=== PATIENT | female | born 1935 | race Caucasian/White ===

== ENCOUNTER 2021-11-21 16:50 | Inpatient (IN) ==
--- NOTE | 2021-11-21 17:19 | Emergency Department Note ---
History of Present Illness General Chief complaint: Syncope Stated complaint: SYNCOPE Time Seen by Provider: 11/21/21 17:03 Source: patient and family (Daughter) Mode of arrival: EMS History of Present Illness Provider complaint: Syncope with left-sided back pain Onset (ago): hour(s) Location: head, back and left Radiation: non-radiation Pain Consistency: + constant Maximum Pain Intensity: 6 Quality: + aching Exacerbated By: + other (Palpation) Associated symptoms: + syncope and + weakness; no chest pain, no cough, no fever/chills, no headaches, no nausea/vomiting or no shortness of breath This is an 85-year-old female who presents with back pain after 2 syncopal episodes today. The patient states that she was on the bathroom defecating and urinating at 7 AM. She then woke up on the ground in the bathroom. She did not have any significant symptoms at this time and went about her day. Prior to arrival the patient passed out again. Her daughter states that she had to go to bathroom so she assisted her to the bathroom and she passed out for about 20 seconds. She did not hit the ground. The patient does not remember passing out. There is no seizure activity. This was witnessed by the daughter. The patient had no symptoms prior to passing out. She does complain of pain to her left upper back where she believes she hit her back this morning. She describes it as a dull ache. It is worse when you press on it. No associated shortness of breath. She denies any palpitations or feelings of tachycardia. She has had no recent fever or illness, cough or cold symptoms, chest discomfort or pain, abdominal pain, vomiting, diarrhea, headache, black or bloody stools or urinary symptoms. She is not on any blood thinners. Home Medications Medication Instructions Recorded Confirmed Type alendronate 70 mg tablet 70 mg PO WK 11/21/21 11/21/21 History allopurinol 100 mg tablet 100 mg PO QAM 11/21/21 11/21/21 History calcium carbonate 600 mg-vitamin 1 tab PO QAM 11/21/21 11/21/21 History D3 10 mcg (400 unit) tablet (Calcium 600 + D(3)) gabapentin 100 mg capsule 100 mg PO TIDM 11/21/21 11/21/21 History hydrochlorothiazide 25 mg tablet 25 mg PO QAM 11/21/21 11/21/21 History lisinopril 30 mg tablet 30 mg PO DAILY 11/21/21 11/21/21 History metoprolol succinate 50 mg 50 mg PO QAM 11/21/21 11/21/21 History tablet,extended release 24 hr Allergies Allergy/AdvReac Type Severity Reaction Status Date / Time No Known Allergies Allergy Verified 11/21/21 18:48 Past Med/Surg History Medical History Hypertension Tremor Social History Smoking Status: Never smoker Feels Safe at Home: Yes Review of Systems See HPI for pertinent positives & negatives. and A total of 10 systems reviewed and were otherwise negative Physical Exam Vital Signs Vital Signs - 24 hr 11/21/21 17:00 11/21/21 17:10 11/21/21 17:30 Temperature 36.9 C Temperature Source Oral Pulse Rate 111 H 109 H Respiratory Rate 20 20 Respiratory Effort / Characteristics Non-Labored Spontaneous Respiratory Depth Normal Blood Pressure 134/67 105/76 Blood Pressure Mean 89 85 Pulse Oximetry 92 90 92 Oxygen Delivery Method Room Air Oxygen Flow Rate Sepsis Recent Fever Within 48 Hours No Sepsis New/Unexplained Change in Mental Status N/A Sepsis Action Taken by Nursing No Action Required 11/21/21 18:30 11/21/21 18:51 11/21/21 19:00 Temperature Temperature Source Pulse Rate 105 H 99 H Respiratory Rate 23 26 H Respiratory Effort / Characteristics Respiratory Depth Blood Pressure 153/76 H 133/71 Blood Pressure Mean 101 91 Pulse Oximetry 94 96 Oxygen Delivery Method Nasal Cannula Oxygen Flow Rate 3 Sepsis Recent Fever Within 48 Hours Sepsis New/Unexplained Change in Mental Status Sepsis Action Taken by Nursing 11/21/21 19:30 Temperature Temperature Source Pulse Rate 96 H Respiratory Rate 27 H Respiratory Effort / Characteristics Respiratory Depth Blood Pressure 126/62 Blood Pressure Mean 83 Pulse Oximetry 96 Oxygen Delivery Method Oxygen Flow Rate Sepsis Recent Fever Within 48 Hours Sepsis New/Unexplained Change in Mental Status Sepsis Action Taken by Nursing Constitutional: Vital signs reviewed. Eyes: Pupils are equal round reactive to light. Conjunctiva are noninjected. ENT: Pharynx is clear without erythema or exudate. Mucous membranes are moist. No midline tenderness to the cervical spine. Respiratory: Clear to auscultation bilaterally. Breath sounds are equal bilaterally. Cardiovascular: Tachycardic. Regular rhythm. GI: Soft, nondistended and nontender. Bowel sounds are present. Musculoskeletal: No peripheral edema. No lower extremity tenderness. No midline tenderness to the thoracic or lumbar spine. There is some mild tenderness to the left mid ribs posteriorly without crepitus or flail segment. Integumentary: No cyanosis. or jaundice. Neurologic: The patient is awake and alert. Cranial nerves II-XII are intact. Motor is 5 out of 5 all extremities. Sensation is intact to light touch all extremities. Normal speech. No pronator drift. Psychiatric: Normal affect. Not anxious appearing. Course Administered Medications Heparin Sodium/Dextrose (Heparin Sodium/Dextrose) 25,000 units in 500 mls @ 0.02 mls/hr IV .Q24H [facility]; Protocol Stop: 12/21/21 18:59 Last Admin: 11/21/21 19:08 Dose: 1,100 units/hr, 22 mls/hr Documented by: [id number] Cosigned by: [id number] Discontinued Medications Heparin Sodium (Porcine) (Heparin Sod (Porcine) 1000 Unit/Ml) 1 units IV NOW ONE Stop: 11/21/21 18:47 Last Admin: 11/21/21 19:08 Dose: 5,000 units Documented by: [id number] Cosigned by: [id number] Ioversol (Optiray 320 125ml) 120 ml IV ONCE ONE Stop: 11/21/21 18:24 Last Admin: 11/21/21 18:24 Dose: 120 ml Documented by: [id number] Critical Care Time Critical Care Time: Yes Total Critical Care Time: 45 I have personally spent approximately 45 minutes of critical care time in the direct management of this patient. This includes bedside care, interpretation of diagnostic studies, and testing, discussion with consultants, patient, and family members, and other required patient management activities. These minutes are in excess of all separately billable procedures. Medical Decision Making Differential Diagnosis Syncope, dysrhythmia, pulmonary embolism, metabolic derangement, intracranial hemorrhage, thoracic vertebral fracture, orthostatic hypotension Medical Records Attestation: I reviewed the patient's medical records. I did perform a limited focused review of portions of the patient's old chart on the electronic medical record. The patient has had no recent pertinent visits to this hospital. Home Medications Current Medication List: was personally reviewed by [email or web address] Laboratory Data Attestation: I reviewed the patient's lab results. Result diagrams: 11/21/21 15:01 11/21/21 15:01 Lab Results 11/21/21 11/21/21 11/21/21 Range/Units 15:00 15:01 15:01 WBC 20.08 H (4.8-10.8) K/uL RBC 4.65 (4.2-5.4) M/uL Hgb 15.0 (12.0-16.0) g/dL POC Hgb (12.0-16.0) g/dl Hct 43.6 (37-47) % POC Hct (37-47) % MCV 93.8 (80-100) fL MCH 32.3 (25-34) pg MCHC 34.4 (32-36) g/dL RDW Std Deviation 47.7 H (36.4-46.3) fL RDW Coeff of Jesus 14.1 (11.5-14.5) % Plt Count 103 L (130-400) K/uL MPV 11.0 H (7.4-10.4) fL Immature Gran % (Auto) 0.5 % Neut % (Auto) 85.0 % Lymph % (Auto) 7.9 % [place] % (Auto) 6.2 % Eos % (Auto) 0.3 % Baso % (Auto) 0.1 % Neut # (Auto) 17.07 H (1.4-6.5) K/uL Lymph # (Auto) 1.58 (1.2-3.4) K/uL [place] # (Auto) 1.25 H (0.11-0.59) K/uL Eos # (Auto) 0.06 (0-0.5) K/uL Baso # (Auto) 0.02 (0-0.2) K/uL Immature Gran # (Auto) 0.10 H (0.00-0.02) K/uL APTT 25.5 (21.0-31.0) Seconds PTT Ratio 0.9 POC Sodium (135-144) mmol/L Sodium 137 (136-145) mmol/L POC Potassium (3.3-5.0) mmol/L Potassium 4.6 (3.5-5.1) mmol/L POC Chloride (101-112) mmol/L Chloride 104 (98-107) mmol/L Carbon Dioxide 23 (21-32) mmol/L POC Total CO2 (24-31) mmol/L Anion Gap 10 (3-11) POC Anion Gap (16-25) mmol/L POC BUN (7-18) mg/dl BUN 22 (6-23) mg/dl Creatinine 1.01 (0.6-1.2) mg/dl POC Creatinine (0.6-1.3) mg/dl Est Cr Clr Drug Dosing 39.7 ml/min Est GFR ( Amer) 59.2 ml/min Est GFR (Non-Af Amer) 51.1 ml/min BUN/Creatinine Ratio 21.8 H (10-20) Glucose 117 H (70-99(Fasting)) mg/dl POC Glucose (other) (70-99) mg/dl Lactate (0.4-2.0) mmol/L Calcium 8.7 (8.5-10.1) mg/dl POC Ioniz Calcium Al (1.12-1.32) mmol/l Magnesium 2.0 (1.7-2.4) mg/dl Total Bilirubin 1.6 H (0.2-1.0) mg/dl AST 36 (13-39) U/L ALT 14 (7-52) U/L Alkaline Phosphatase 53 (34-104) U/L Troponin I High Sens 4272.4 H* (0-14) pg/ml Total Protein 5.7 L (6.0-8.3) gm/dl Albumin 3.5 (3.4-5.0) gm/dl Globulin 2.2 L (2.5-4.0) gm/dl Albumin/Globulin Ratio 1.6 (0.9-2) TSH (0.300-4.500) uIu/ml SARS-CoV-2, RNA, NAAT (NEGATIVE) 11/21/21 11/21/21 11/21/21 Range/Units 15:01 17:20 18:50 WBC (4.8-10.8) K/uL RBC (4.2-5.4) M/uL Hgb (12.0-16.0) g/dL POC Hgb 13.3 (12.0-16.0) g/dl Hct (37-47) % POC Hct 39 (37-47) % MCV (80-100) fL MCH (25-34) pg MCHC (32-36) g/dL RDW Std Deviation (36.4-46.3) fL RDW Coeff of Jesus (11.5-14.5) % Plt Count (130-400) K/uL MPV (7.4-10.4) fL Immature Gran % (Auto) % Neut % (Auto) % Lymph % (Auto) % [place] % (Auto) % Eos % (Auto) % Baso % (Auto) % Neut # (Auto) (1.4-6.5) K/uL Lymph # (Auto) (1.2-3.4) K/uL [place] # (Auto) (0.11-0.59) K/uL Eos # (Auto) (0-0.5) K/uL Baso # (Auto) (0-0.2) K/uL Immature Gran # (Auto) (0.00-0.02) K/uL APTT (21.0-31.0) Seconds PTT Ratio POC Sodium 138 (135-144) mmol/L Sodium (136-145) mmol/L POC Potassium 4.0 (3.3-5.0) mmol/L Potassium (3.5-5.1) mmol/L POC Chloride 103 (101-112) mmol/L Chloride (98-107) mmol/L Carbon Dioxide (21-32) mmol/L POC Total CO2 24 (24-31) mmol/L Anion Gap (3-11) POC Anion Gap 16.0 (16-25) mmol/L POC BUN 25 H (7-18) mg/dl BUN (6-23) mg/dl Creatinine (0.6-1.2) mg/dl POC Creatinine 0.9 (0.6-1.3) mg/dl Est Cr Clr Drug Dosing ml/min Est GFR ( Amer) ml/min Est GFR (Non-Af Amer) ml/min BUN/Creatinine Ratio (10-20) Glucose (70-99(Fasting)) mg/dl POC Glucose (other) 119 H (70-99) mg/dl Lactate (0.4-2.0) mmol/L Calcium (8.5-10.1) mg/dl POC Ioniz Calcium Al 1.13 (1.12-1.32) mmol/l Magnesium (1.7-2.4) mg/dl Total Bilirubin (0.2-1.0) mg/dl AST (13-39) U/L ALT (7-52) U/L Alkaline Phosphatase (34-104) U/L Troponin I High Sens (0-14) pg/ml Total Protein (6.0-8.3) gm/dl Albumin (3.4-5.0) gm/dl Globulin (2.5-4.0) gm/dl Albumin/Globulin Ratio (0.9-2) TSH 2.513 (0.300-4.500) uIu/ml SARS-CoV-2, RNA, NAAT NEGATIVE (NEGATIVE) 11/21/21 Range/Units 18:52 WBC (4.8-10.8) K/uL RBC (4.2-5.4) M/uL Hgb (12.0-16.0) g/dL POC Hgb (12.0-16.0) g/dl Hct (37-47) % POC Hct (37-47) % MCV (80-100) fL MCH (25-34) pg MCHC (32-36) g/dL RDW Std Deviation (36.4-46.3) fL RDW Coeff of Jesus (11.5-14.5) % Plt Count (130-400) K/uL MPV (7.4-10.4) fL Immature Gran % (Auto) % Neut % (Auto) % Lymph % (Auto) % [place] % (Auto) % Eos % (Auto) % Baso % (Auto) % Neut # (Auto) (1.4-6.5) K/uL Lymph # (Auto) (1.2-3.4) K/uL [place] # (Auto) (0.11-0.59) K/uL Eos # (Auto) (0-0.5) K/uL Baso # (Auto) (0-0.2) K/uL Immature Gran # (Auto) (0.00-0.02) K/uL APTT (21.0-31.0) Seconds PTT Ratio POC Sodium (135-144) mmol/L Sodium (136-145) mmol/L POC Potassium (3.3-5.0) mmol/L Potassium (3.5-5.1) mmol/L POC Chloride (101-112) mmol/L Chloride (98-107) mmol/L Carbon Dioxide (21-32) mmol/L POC Total CO2 (24-31) mmol/L Anion Gap (3-11) POC Anion Gap (16-25) mmol/L POC BUN (7-18) mg/dl BUN (6-23) mg/dl Creatinine (0.6-1.2) mg/dl POC Creatinine (0.6-1.3) mg/dl Est Cr Clr Drug Dosing ml/min Est GFR ( Amer) ml/min Est GFR (Non-Af Amer) ml/min BUN/Creatinine Ratio (10-20) Glucose (70-99(Fasting)) mg/dl POC Glucose (other) (70-99) mg/dl Lactate 1.4 (0.4-2.0) mmol/L Calcium (8.5-10.1) mg/dl POC Ioniz Calcium Al (1.12-1.32) mmol/l Magnesium (1.7-2.4) mg/dl Total Bilirubin (0.2-1.0) mg/dl AST (13-39) U/L ALT (7-52) U/L Alkaline Phosphatase (34-104) U/L Troponin I High Sens (0-14) pg/ml Total Protein (6.0-8.3) gm/dl Albumin (3.4-5.0) gm/dl Globulin (2.5-4.0) gm/dl Albumin/Globulin Ratio (0.9-2) TSH (0.300-4.500) uIu/ml SARS-CoV-2, RNA, NAAT (NEGATIVE) Imaging Data Radiologist's Impression: Cervical Spine CT 11/21/21 17:10 CT SCAN OF THE CERVICAL SPINE CLINICAL HISTORY: Fall. COMPARISON STUDY: No priors. TECHNIQUE: CT scan of the cervical spine is performed from the skull base to the upper thoracic spine. Images are reviewed in the axial, sagittal, and coronal planes. IV contrast was not administered for this examination. A dose lowering technique was utilized adhering to the principles of ALARA. FINDINGS: Skeletal structures: The skeletal structures are osteopenic. There is no evidence of fracture or subluxation involving the cervical spine. Vertebral body height and alignment are maintained. Small anterior osteophytes are seen thr oughout. The odontoid process and lateral masses are intact. The atlantoaxial articulation is preserved noting productive degenerative change. The spinous processes appear intact. There is mild to moderate multilevel cervical spondylosis. Uncovertebral and facet arthropathy contribute to neural foraminal narrowing at several levels. Intervertebral discs: The disc spaces are well maintained. Central canal: Grossly patent. Soft tissues: The prevertebral and paraspinous soft tissues are within normal limits. Calvarium: The visualized calvarium at the skull base appears intact. Brain parenchyma: Partially visualized brain parenchyma at the skull base is within normal limits. Sinuses and mastoids: Mucosal thickening is noted in the ethmoid sinuses. The mastoid air cells are well pneumatized. Lung apices: Clear as visualized. IMPRESSION: 1. There is no evidence of fracture or subluxation involving the cervical spine. 2. Osteopenia and spondylotic change as above. ACT 112: Negative or not required by law. Electronically signed by: Al Hurtado M.D. 11/21/2021 6:25 PM Chest CTA 11/21/21 17:10 CT ANGIOGRAM OF THE CHEST; CT SCAN OF THE THORACIC SPINE WITHOUT IV CONTRAST CLINICAL HISTORY: Syncope. Tachycardia. Thoracic back pain. COMPARISON STUDY: No priors. TECHNIQUE: Unenhanced CT scan of the thoracic spine is performed from the cervical spine to the upper lumbar spine. Subsequently, following The IV administration of 120 cc of [address] angiogram of the chest was performed from the upper abdomen to the thoracic inlet utilizing the pulmonary embolus p rotocol. Images for both examinations are reviewed in the axial, sagittal, and coronal planes. 3-D MIPS images are created and assessed. IV contrast was administered without complication. A dose lowering technique was utilized adhering to the principles of ALARA. These examinations are compromised by motion artifact, as well as by streak artifact from the arms which could not be elevated above the chest. CT DOSE: 2350.91 mGy.cm FINDINGS: Thyroid: Imaged portions of the thyroid gland are normal in size and attenuatio n. Thoracic aorta: The thoracic aorta is normal in caliber and demonstrates standard 3-vessel arch anatomy. No dissection is seen. Pulmonary vasculature: The pulmonary trunk is normal in caliber. There is extensive bilateral pulmonary embolus. Thrombus is seen within the distal right main pulmonary artery. This extends into the right upper and lower lobe pulmonary arteries into segmental and subsegmental branches. There is thrombus within the distal left main pulmonary artery. This extends into the left upper and lower lobe branches as well as a lingular branch into segmental and subsegmental vessels. Heart: The heart is mildly enlarged and without pericardial effusion. Lungs and pleural spaces: Evaluation of the lung parenchyma is compromised by motion artifact. The trachea and central airways appear clear. There is subpleural consolidation throughout the right lower lobe. Scarring/atelectasis is seen at the left lung base. No pleural effusion is identified. Mediastinum: There is no mediastinal lymphadenopathy. Mayda: Clear. Axillae: There is no axillary lymphadenopathy. Upper abdomen: There is a small hiatal hernia. Excreted IV contrast is seen within the renal collecting systems. Partially visualized upper abdominal viscera is otherwise grossly unremarkable. Skeletal structures: The skeletal structures are osteopenic. See below for dedicated discussion of the thoracic spine. The bony thorax appears intact. No lytic or blastic bony lesions are seen. THORACIC SPINE: Vertebral body height and alignment are maintained throughout the thoracic spine. There is no evidence of acute fracture or malalignment. The transverse and spinous processes are intact. Anterior osteophytes are seen throughout and there is evidence of DISH. There is mild multilevel degenerative disc space narrowing. There is no evidence of large disc herniation or high- grade central canal stenosis by CT. The paraspinous soft tissues are normal in appearance. IMPRESSION: 1. Streak and motion compromised examinations. 2. Extensive bilateral pulmonary emboli as above. 3. Foci of subpleural airspace consolidation in the right lower lobe likely represent pulmonary infarcts. Correlate clinically for evidence of a superimposed infectious/inflammatory enteritis. 4. There is no evidence of fracture or malalignment involving the thoracic spine. 5. Mild cardiomegaly. 6. Additional findings as above. ACT 112: Negative or not required by law. Electronically signed by: Al Hurtado M.D. 11/21/2021 6:[address] 11/21/21 17:10 CT SCAN OF THE BRAIN WITHOUT IV CONTRAST CLINICAL HISTORY: Syncope. COMPARISON STUDY: No priors. TECHNIQUE: Unenhanced axial CT scan of the brain is performed from the vertex to the skull base. A dose lowering technique was utilized adhering to the princi ples of RYAN. FINDINGS: Brain parenchyma: There is age-related involutional change noting mild subcortical and periventricular microangiopathic disease. There is no hemorrhage, mass effect, or evidence of acute territorial ischemia by CT criteria. Catherine-white matter differentiation is preserved. No extra-axial fluid collection is seen. Ventricles, sulci, cisterns: Prominent secondary to involutional change. Intracranial vasculature: There is atherosclerotic calcification of the cavernous carotid arteries. Calvarium: The skeletal structures are osteopenic. No depressed calvarial fracture is identified. Soft tissues: There is a small left frontal scalp contusion. Sinuses and mastoids: Mild mucosal thickening is noted in the ethmoid sinuses. The remaining visualized paranasal sinuses are clear. The mastoid air cells are well pneumatized. Orbits: The bony orbits are grossly intact. IMPRESSION: There is no hemorrhage, mass effect, or evidence of acute territorial ischemia by CT criteria. ACT 112: Negative or not required by law. Electronically signed by: Al Hurtado M.D. 11/21/2021 6:[address] 11/21/21 17:10 CT ANGIOGRAM OF THE CHEST; CT SCAN OF THE THORACIC SPINE WITHOUT IV CONTRAST CLINICAL HISTORY: Syncope. Tachycardia. Thoracic back pain. COMPARISON STUDY: No priors. TECHNIQUE: Unenhanced CT scan of the thoracic spine is performed from the cervical spine to the upper lumbar spine. Subsequently, following The IV administration of 120 cc of [address] angiogram of the chest was performed from the upper abdomen to the thoracic inlet utilizing the pulmonary embolus protocol. Images for both examinations are reviewed in the axial, sagittal, and coronal planes. 3-D MIPS images are created and assessed. IV contrast was administered without complication. A dose lowering technique was utilized adhering to the principles of ALARA. These examinations are compromised by motion artifact, as well as by streak artifact from the arms which could not be elevated above the chest. CT DOSE: 2350.91 mGy.cm FINDINGS: Thyroid: Imaged portions of the thyroid gland are normal in size and at tenuation. Thoracic aorta: The thoracic aorta is normal in caliber and demonstrates standard 3-vessel arch anatomy. No dissection is seen. Pulmonary vasculature: The pulmonary trunk is normal in caliber. There is extensive bilateral pulmonary embolus. Thrombus is seen within the distal right main pulmonary artery. This extends into the right upper and lower lobe pulmonary arteries into segmental and subsegmental branches. There is thrombus within the distal left main pulmonary artery. This extends into the left upper and lower lobe branches as well as a lingular branch into segmental and subsegmental vessels. Heart: The heart is mildly enlarged and without pericardial effusion. Lungs and pleural spaces: Evaluation of the lung parenchyma is compromised by motion artifact. The trachea and central airways appear clear. There is subpleural consolidation throughout the right lower lobe. Scarring/atelectasis is seen at the left lung base. No pleural effusion is identified. Mediastinum: There is no mediastinal lymphadenopathy. Mayda: Clear. Axillae: There is no axillary lymphadenopathy. Upper abdomen: There is a small hiatal hernia. Excreted IV contrast is seen within the renal collecting systems. Partially visualized upper abdominal viscera is otherwise grossly unremarkable. Skeletal structures: The skeletal structures are osteopenic. See below for de dicated discussion of the thoracic spine. The bony thorax appears intact. No lytic or blastic bony lesions are seen. THORACIC SPINE: Vertebral body height and alignment are maintained throughout the thoracic spine. There is no evidence of acute fracture or malalignment. The transverse and spinous processes are intact. Anterior osteophytes are seen throughout and there is evidence of DISH. There is mild multilevel degenerative disc space narrowing. There is no evidence of large disc herniation or high- grade central canal stenosis by CT. The paraspinous soft tissues are normal in appearance. IMPRESSION: 1. Streak and motion compromised examinations. 2. Extensive bilateral pulmonary emboli as above. 3. Foci of subpleural airspace consolidation in the right lower lobe likely represent pulmonary infarcts. Correlate clinically for evidence of a superimposed infectious/inflammatory enteritis. 4. There is no evidence of fracture or malalignment involving the thoracic spine. 5. Mild cardiomegaly. 6. Additional findings as above. ACT 112: Negative or not required by law. Electronically signed by: Al Hurtado M.D. 11/21/2021 6:49 PM ECG Data Attestation: I personally reviewed and interpreted this ECG as follows: Indication: + syncope and + tachycardia Rate (beats per minute): 115 Rhythm: + sinus tachycardia ECG [place]: + Normal ECG ST segments: no ST elevation ECG Findings: + Q waves (Lead III and anterior leads); no PVCs Comparison ECG Date: no prior available Additional Comments: Repeat twelve-lead EKG performed at 1839 per my interpretation shows sinus tachycardia at a rate of 103. There is no evidence of acute ST elevation or depression. She has persistent Q waves in lead III. No PVCs. No significant change from prior EKG. Head Trauma GCS Score: 15 MDM Narrative I did evaluate the patient as noted above. The patient is presenting with 2 syncopal episodes today. 1 prior to arrival and the other 1 at 7 AM. She has no complaints other than left-sided thoracic back pain which she states started after she fell. IV access was established. I did place an order for continuous cardiac monitoring. The monitor showed sinus tachycardia at a rate of 115 bpm. She has an O2 saturation of 93% on room air. I did order and personally review the patient's 12-lead EKG as described above. There are no ST elevations. She does have a Q-wave in lead III as well as anteriorly. No old EKGs available for comparison. She denies having any chest discomfort or pain or shortness of breath. I did order a urine analysis. I did order and review the patient's blood work as noted in the electronic medical record. CBC demonstrates a white count of 20,000. She is not anemic. Platelet count is 103. CMP is unremarkable other than a total bili 1.6. Troponin is elevated at 4272. I did order a CT of the head, cervical and thoracic spine and CTA of the chest I did review the images myself as well as the radiology report as described above. There is no evidence of intracranial abnormality. Cervical spine does not show any fracture. She does have multiple pulmonary emboli in the lungs bilaterally. She has what appears to be a right lower lobe pulmonary infarct. I did discuss the test results with the patient and her daughter. She states she is short of breath and looks sweaty. She was placed on supplemental oxygen via nasal cannula. I did repeat a twelve-lead EKG which showed no change from her prior EKG. I did discuss risks and benefits of anticoagulation with heparin. She and her daughter were agreeable to heparinization. I did order an IV bolus as well as a continuous drip of heparin. I did discuss case with the hospitalist and spring encaser. Impression & Plan Pulmonary emboli, Embolism, pulmonary with infarction, Elevated troponin, Leukocytosis, Thrombocytopenia, Syncope Discharge Plan Visit Data Chief Complaint: Syncope Stated Complaint: SYNCOPE ED Provider: Dave Islas Discharge Problem: Pulmonary emboli, Embolism, pulmonary with infarction, Elevated troponin, Leukocytosis, Thrombocytopenia, Syncope Patient Disposition: Being Evaluated by Hospitalist Forms Stand Alone Forms: My [facility] Prescriptions Prescriptions: No Action metoprolol succinate 50 mg tablet extended release 24 hr 50 mg PO QAM RF: 0 alendronate 70 mg tablet 70 mg PO WK RF: 0 allopurinol 100 mg tablet 100 mg PO QAM RF: 0 lisinopril 30 mg tablet 30 mg PO DAILY RF: 0 hydrochlorothiazide 25 mg tablet 25 mg PO QAM RF: 0 gabapentin 100 mg capsule 100 mg PO TIDM RF: 0 calcium carbonate-vitamin D3 [Calcium 600 + D(3)] 600 mg-10 mcg (400 unit) Tablet 1 tab PO QAM RF: 0 Referrals Referrals: Glenn Keith MD [Primary Care Provider] -
[2021-11-21 17:24] LABS: Basophils # (auto) 0.02 K/uL (0-0.2); Basophils % (auto) 0.1 %; Eosinophils # (auto) 0.06 K/uL (0-0.5); Eosinophils % (auto) 0.3 %; Hematocrit (blood only) 43.6 % (37-47); Immature Granulocytes % (auto) 0.5 %; Lymphocytes # (auto) 1.58 K/uL (1.2-3.4); Lymphocytes % (auto) 7.9 %; Mean Corpuscular Hemoglobin 32.3 pg (25-34); Mean Corpuscular Hgb Conc 34.4 g/dL (32-36); Mean Corpuscular Volume 93.8 fL (80-100); Monocytes # (auto) 1.25 K/uL (0.11-0.59); Monocytes % (auto) 6.2 %; Neutrophils # (auto) 17.07 K/uL (1.4-6.5); Platelet Count 103 K/uL (130-400); RDW Coefficient of Variation 14.1 % (11.5-14.5); RDW Standard Deviation 47.7 fL (36.4-46.3); Red Blood Count 4.65 M/uL (4.2-5.4); White Blood Count 20.08 K/uL (4.8-10.8)
[2021-11-21 17:35] LABS: iSTAT Creatinine 0.9 mg/dl (0.6-1.3); iSTAT Hemoglobin 13.3 g/dl (12.0-16.0); iSTAT Ionized Calcium 1.13 mmol/l (1.12-1.32)
[2021-11-21 18:15] LABS: Potassium 4.6 mmol/L (3.5-5.1)
[2021-11-21 18:16] LABS: Albumin Globulin Ratio 1.6 (0.9-2); Albumin Level 3.5 gm/dl (3.4-5.0); BUN Creatinine Ratio 21.8 (10-20); Bilirubin,Total 1.6 mg/dl (0.2-1.0); Calcium 8.7 mg/dl (8.5-10.1); Creatinine Clr Calc Pharmacy 39.7 ml/min; Est GFR (African American) 59.2 ml/min; Est GFR (Non-African American) 51.1 ml/min; Globulin 2.2 gm/dl (2.5-4.0); Total Protein 5.7 gm/dl (6.0-8.3); Troponin I High Sensitivity 4272.4 pg/ml (0-14)
[2021-11-21] MEDS ORDERED: OPTIRAY 320 125ml IV ONE (18:23)
--- NOTE | 2021-11-21 18:23 | CT Scan Report ---
CT SCAN OF THE BRAIN WITHOUT IV CONTRAST CLINICAL HISTORY: Syncope. COMPARISON STUDY: No priors. TECHNIQUE: Unenhanced axial CT scan of the brain is performed from the vertex to the skull base. A do se lowering technique was utilized adhering to the principles of ALARA. FINDINGS: Brain parenchyma: There is age-related involutional change noting mild subcortical and periventricula r microangiopathic disease. There is no hemorrhage, mass effect, or evidence of acute territorial isc hemia by CT criteria. Catherine-white matter differentiation is preserved. No extra-axial fluid collection is seen. Ventricles, sulci, cisterns: Prominent secondary to involutional change. Intracranial vasculature: There is atherosclerotic calcification of the cavernous carotid arteries. Calvarium: The skeletal structures are osteopenic. No depressed calvarial fracture is identified. Soft tissues: There is a small left frontal scalp contusion. Sinuses and mastoids: Mild mucosal thickening is noted in the ethmoid sinuses. The remaining visualiz ed paranasal sinuses are clear. The mastoid air cells are well pneumatized. Orbits: The bony orbits are grossly intact. IMPRESSION: There is no hemorrhage, mass effect, or evidence of acute territorial ischemia by CT hunter feng. ACT 112: Negative or not required by law. Electronically signed by: Al Hurtado M.D. 11/21/2021 6:21 PM
--- NOTE | 2021-11-21 18:27 | CT Scan Report ---
CT SCAN OF THE CERVICAL SPINE CLINICAL HISTORY: Fall. COMPARISON STUDY: No priors. TECHNIQUE: CT scan of the cervical spine is performed from the skull base to the upper thoracic spine . Images are reviewed in the axial, sagittal, and coronal planes. IV contrast was not administered fo r this examination. A dose lowering technique was utilized adhering to the principles of ALARA. FINDINGS: Skeletal structures: The skeletal structures are osteopenic. There is no evidence of fracture or subl uxation involving the cervical spine. Vertebral body height and alignment are maintained. Small anter ior osteophytes are seen throughout. The odontoid process and lateral masses are intact. The atlantoa xial articulation is preserved noting productive degenerative change. The spinous processes appear in tact. There is mild to moderate multilevel cervical spondylosis. Uncovertebral and facet arthropathy contribute to neural foraminal narrowing at several levels. Intervertebral discs: The disc spaces are well maintained. Central canal: Grossly patent. Soft tissues: The prevertebral and paraspinous soft tissues are within normal limits. Calvarium: The visualized calvarium at the skull base appears intact. Brain parenchyma: Partially visualized brain parenchyma at the skull base is within normal limits. Sinuses and mastoids: Mucosal thickening is noted in the ethmoid sinuses. The mastoid air cells are w ell pneumatized. Lung apices: Clear as visualized. IMPRESSION: 1. There is no evidence of fracture or subluxation involving the cervical spine. 2. Osteopenia and spondylotic change as above. ACT 112: Negative or not required by law. Electronically signed by: Al Hurtado M.D. 11/21/2021 6:25 PM
[2021-11-21] MEDS ORDERED: Heparin IV Adult Wt-Based Standard WITH Bolus Protocol IV STA (18:31)
[2021-11-21] MEDS ORDERED: HEPARIN SOD (PORCINE) 1000 UNIT/ML IV ONE (18:46)
--- NOTE | 2021-11-21 18:52 | CT Scan Report ---
CT ANGIOGRAM OF THE CHEST; CT SCAN OF THE THORACIC SPINE WITHOUT IV CONTRAST CLINICAL HISTORY: Syncope. Tachycardia. Thoracic back pain. COMPARISON STUDY: No priors. TECHNIQUE: Unenhanced CT scan of the thoracic spine is performed from the cervical spine to the upper lumbar spine. Subsequently, following The IV administration of 120 cc of [address] angiogram of the chest was performed from the upper abdomen to the thoracic inlet utilizing the pulmonary embolus protocol. Images for both examinations are reviewed in the axial, sagittal, and coronal planes. 3-D MIPS images are created and assessed. IV contrast was administered without complication. A dose lowe ring technique was utilized adhering to the principles of ALARA. These examinations are compromised b y motion artifact, as well as by streak artifact from the arms which could not be elevated above the chest. CT DOSE: 2350.91 mGy.cm FINDINGS: Thyroid: Imaged portions of the thyroid gland are normal in size and attenuation. Thoracic aorta: The thoracic aorta is normal in caliber and demonstrates standard 3-vessel arch anato my. No dissection is seen. Pulmonary vasculature: The pulmonary trunk is normal in caliber. There is extensive bilateral pulmona ry embolus. Thrombus is seen within the distal right main pulmonary artery. This extends into the rig ht upper and lower lobe pulmonary arteries into segmental and subsegmental branches. There is thrombu s within the distal left main pulmonary artery. This extends into the left upper and lower lobe branc hes as well as a lingular branch into segmental and subsegmental vessels. Heart: The heart is mildly enlarged and without pericardial effusion. Lungs and pleural spaces: Evaluation of the lung parenchyma is compromised by motion artifact. The tr achea and central airways appear clear. There is subpleural consolidation throughout the right lower lobe. Scarring/atelectasis is seen at the left lung base. No pleural effusion is identified. Mediastinum: There is no mediastinal lymphadenopathy. Mayda: Clear. Axillae: There is no axillary lymphadenopathy. Upper abdomen: There is a small hiatal hernia. Excreted IV contrast is seen within the renal collecti ng systems. Partially visualized upper abdominal viscera is otherwise grossly unremarkable. Skeletal structures: The skeletal structures are osteopenic. See below for dedicated discussion of th e thoracic spine. The bony thorax appears intact. No lytic or blastic bony lesions are seen. THORACIC SPINE: Vertebral body height and alignment are maintained throughout the thoracic spine. The re is no evidence of acute fracture or malalignment. The transverse and spinous processes are intact. Anterior osteophytes are seen throughout and there is evidence of DISH. There is mild multilevel deg enerative disc space narrowing. There is no evidence of large disc herniation or high-grade central c anal stenosis by CT. The paraspinous soft tissues are normal in appearance. IMPRESSION: 1. Streak and motion compromised examinations. 2. Extensive bilateral pulmonary emboli as above. 3. Foci of subpleural airspace consolidation in the right lower lobe likely represent pulmonary infar cts. Correlate clinically for evidence of a superimposed infectious/inflammatory enteritis. 4. There is no evidence of fracture or malalignment involving the thoracic spine. 5. Mild cardiomegaly. 6. Additional findings as above. ACT 112: Negative or not required by law. Electronically signed by: Al Hurtado M.D. 11/21/2021 6:49 PM
[2021-11-21] MEDS: HEPARIN SODIUM/DEXTROSE 25,000 UNITS/500 ML BAG IV SCH (19:08)
[2021-11-21 19:24] LABS: Partial Thromboplastin Ratio 0.9; Partial Thromboplastin Time 25.5 Seconds (21.0-31.0)
[2021-11-21] MEDS ORDERED: POLYETHYLENE (MIRALAX) 17 GM PACK PO PRN (21:35)
[2021-11-21] MEDS ORDERED: ACETAMINOPHEN 325 MG TAB PO PRN (21:35)
[2021-11-21] MEDS ORDERED: NITROGLYCERIN SL 0.4 MG/TAB TAB SL PRN (21:35)
--- NOTE | 2021-11-21 21:59 | History and Physical Report ---
DATE OF ADMISSION: 11/21/2021. CHIEF COMPLAINT: Syncope. HISTORY OF PRESENT ILLNESS: This is an 85-year-old female with past medical history significant for left foot gout, hyperlipidemia, venous insufficiency, essential hypertension, varicose veins of both lower extremities, chronic kidney disease stage III, osteoporosis, essential tremor, sensorineural hearing loss of both ears who lives at home with her daughter, presents with a couple of syncopal episodes. Initially, it happened in the morning when she was sitting on the commode, she woke up on floor of the bathroom, then called her daughter. Then again in the afternoon, she had another episode. During the first episode, she thinks she might have incontinent of stool. She thinks she passed out for a few minutes, not sure whether she was confused or not after that. Denies any chest pain. No shortness of breath. No nausea, no vomiting, no abdominal pain, normal bowel and bladder movements, no blood in the stools. No swelling in the legs. Ambulates without support. Denies any headache, no dizziness, no blurred visions, no earache, no runny nose, no sore throat, no cough, no fevers. Currently, resting comfortably and hemodynamically stable.One of the daughter is in the room helping with H and P. ALLERGIES: No known drug allergies. PAST MEDICAL HISTORY: As mentioned above. PAST SURGICAL HISTORY: Partial hysterectomy, appendectomy, repair of bladder and vagina for cystocele. MEDICATIONS: The patient is on alendronate 70 mg p.o. weekly, allopurinol 100 mg p.o. a.m., calcium plus vitamin D 1 tablet p.o. a.m., gabapentin 100 mg p.o. t.i.d., hydrochlorothiazide 25 mg p.o. a.m., lisinopril 30 mg p.o. daily, metoprolol succinate 50 mg p.o. a.m. FAMILY HISTORY: Significant for father had prostate cancer, paternal grandmother had colon cancer, mother had heart disorder, brother had CVA, mother had CVA, dementia. SOCIAL HISTORY: , no smoking, no alcohol, no drug use. REVIEW OF SYSTEMS: As per HPI. Rest of the review of systems is negative. PHYSICAL EXAMINATION: GENERAL: The patient is of moderate build, not in acute distress. VITAL SIGNS: Temperature 36.9, pulse 98, respiratory rate 26, blood pressure 131/73, oxygen 98% on nasal cannula. HEENT: Pupils equal, round and reactive to light. Oral mucosa moist. NECK: No JVD, no neck masses. CARDIOVASCULAR: S1 and S2 heard. Regular rate and rhythm. No murmur, no gallop. RESPIRATORY SYSTEM: Normal AP diameter. No accessory muscle use. No wheezing, no crackles. ABDOMEN: Soft. Bowel sounds are present, nontender, no distention. CENTRAL NERVOUS SYSTEM: Alert and oriented. No facial droop. Speech is clear. Obeys simple commands. Moves extremities. EXTREMITIES: No edema, no erythema seen. LABORATORIES: WBC 20, hemoglobin 15, hematocrit 43.6, platelets 103. APTT 25.5, PTT 20.9. Sodium 137, potassium 4.6, chloride 104, bicarbonate 23, BUN 22, creatinine 1.01, serum glucose 117, lactate 1.4, calcium 8.7, magnesium 2.2, total bilirubin 1.6, AST 36, ALT 14, alkaline phosphatase 53. Troponin I high sensitivity 272. TSH 2.5. SARS-CoV-2 rapid test negative. IMAGING: CT angiogram of the chest and CT of the thoracic spine without IV contrast show extensive bilateral pulmonary emboli, focal subpleural airspace consolidation in the right lower lobe, likely represent pulmonary infarcts. Clinically correlate for evidence of superimposed infectious, inflammatory enteritis. No evidence of fracture or malalignment involving the thoracic spine. Mild cardiomegaly. CT of the head, no acute findings. Cervical spine CT: No acute findings. EKG: Sinus tachycardia with frequent fusion complexes, rate of 103, no acute ST-T changes seen. ASSESSMENT AND PLAN: This 85-year-old female presents with syncope 2 times at home and also found to have bilateral extensive pulmonary embolism. 1. Syncope episodes, most likely secondary to extensive bilateral pulmonary embolism. The patient is also having elevated troponin, most likely could be from right heart strain. The patient is currently alert and oriented, hemodynamically stable, saturating okay. Emergency Room started her on IV heparin, which will be continued. We will follow echocardiogram and Dopplers. Monitor in the telemetry floor. 2. Elevated troponin, non-ST elevation myocardial infarction, possibly secondary to right heart strain. We will follow serial enzymes, echocardiogram, and consult cardiology in the a.m. for further recommendations. 3. Mild elevation of total bilirubin. We will follow the repeat laboratories. 4. Gout, continue allopurinol. 5. Hypertension. Continue hydrochlorothiazide, lisinopril and metoprolol succinate. We will monitor the blood pressure. 6. Chronic kidney disease stage III, presents with creatinine of 1.01. We will follow the repeat laboratories. 7. Deep venous thrombosis prophylaxis, on IV heparin. DISPOSITION: Closely monitor in tele floor. Level 1, full code. PT, OT prior to discharge. Social service to help with discharge planning. Expect to discharge home and follow with family doctor. Job ID: [id number] [facility] HOSPITALFredi
[2021-11-21] MEDS: SODIUM CHLORIDE 0.9% 1000ML 1,000 ML IV SCH (22:22)
[2021-11-22 02:05] LABS: Partial Thromboplastin Ratio 4.7
[2021-11-22 02:10] LABS: Partial Thromboplastin Time 129.8 Seconds (21.0-31.0)
[2021-11-22 06:13] LABS: Basophils # (auto) 0.02 K/uL (0-0.2); Basophils % (auto) 0.2 %; Eosinophils # (auto) 0.22 K/uL (0-0.5); Eosinophils % (auto) 1.9 %; Hematocrit (blood only) 40.2 % (37-47); Hemoglobin 13.1 g/dL (12.0-16.0); Immature Granulocytes # (auto) 0.05 K/uL (0.00-0.02); Immature Granulocytes % (auto) 0.4 %; Lymphocytes # (auto) 2.19 K/uL (1.2-3.4); Lymphocytes % (auto) 18.8 %; Mean Corpuscular Hemoglobin 30.3 pg (25-34); Mean Corpuscular Hgb Conc 32.6 g/dL (32-36); Mean Corpuscular Volume 92.8 fL (80-100); Mean Platelet Volume 10.2 fL (7.4-10.4); Monocytes # (auto) 0.68 K/uL (0.11-0.59); Monocytes % (auto) 5.8 %; Neutrophils % (auto) 72.9 %; Platelet Count 123 K/uL (130-400); RDW Coefficient of Variation 14.2 % (11.5-14.5); RDW Standard Deviation 48.5 fL (36.4-46.3); Red Blood Count 4.33 M/uL (4.2-5.4); White Blood Count 11.66 K/uL (4.8-10.8)
[2021-11-22 06:35] LABS: BUN Creatinine Ratio 21.5 (10-20); Calcium 8.1 mg/dl (8.5-10.1); Creatinine Clr Calc Pharmacy 50.9 ml/min; Est GFR (African American) 79.7 ml/min; Est GFR (Non-African American) 68.7 ml/min; Magnesium 1.9 mg/dl (1.7-2.4); Potassium 3.9 mmol/L (3.5-5.1)
--- NOTE | 2021-11-22 07:37 | Ultrasound Report ---
US venous doppler LE BI CLINICAL HISTORY: Bilateral leg pain and swelling COMPARISON: None available at the time of this dictation. TECHNIQUE: Bilateral lower extremity real-time compression venous ultrasound with Color Doppler imagi ng. Utilizing real-time ultrasonic imaging multiple real time high-resolution ultrasonic images with comp ression and noncompression maneuvers of the deep venous system in addition to color doppler imaging w ere performed from the common femoral vein through the proximal calf veins. FINDINGS: Currently there is normal compressibility of the deep venous system from the common femoral vein thro ugh the proximal calf veins. No current evidence of acute thrombosis is identified. However, there is nonocclusive superficial thrombophlebitis within the left saphenous vein extending for length of 2.5 cm to the level of the popliteal vein. Impression: 1. No evidence for deep venous thrombosis. 2. Superficial thrombophlebitis on the left. ACT 112: Negative or not required by law. Electronically signed by: Anson Strong M.D. 11/22/2021 7:36 AM
[2021-11-22 07:50] LABS: Appearance Urine Clear (Clear); Bacteria Urine Automated 1+ (Negative); Bilirubin Urine Negative (Negative); Blood Urine Trace (Negative); Color Urine Yellow; Glucose Urine UA Negative (Negative); Ketones Urine Negative (Negative); Leukocyte Esterase Urine 2+ (Negative); Nitrite Urine Negative (Negative); Protein Urine Negative (Negative); Specific Gravity Urine 1.034 (1.000-1.030); Urobilinogen Urine Negative (Negative); WBC Urine Automated >30 /hpf (0-5)
[2021-11-22 08:10] LABS: RBC Urine Automated 0-4 /hpf (0-4)
[2021-11-22] MEDS: allopurinoL 100 MG TAB PO SCH (09:19)
[2021-11-22] MEDS: lisinopril 10 MG TAB PO SCH (09:20)
[2021-11-22] MEDS: CALCIUM 600MG + VIT D 400 IU TAB PO SCH (09:21)
[2021-11-22] MEDS: hydroCHLOROthiazide 25 MG TAB PO SCH (09:21)
[2021-11-22] MEDS: METOPROLOL SUCC 50MG EXT REL TAB PO SCH (09:21)
[2021-11-22] MEDS: GABAPENTIN 100 MG CAP PO SCH ×3 (09:22→16:48)
--- NOTE | 2021-11-22 09:31 | Cardiology Consultation ---
Date of Consultation November 22, 2021 Assessment & Plan (1) Pulmonary emboli: (2) Right ventricular dilation: (3) Elevated troponin: (4) Syncope and collapse: (5) Hypertension: 85-year-old female. Recent episode of syncope in the setting of newly diagnosed extensive bilateral PEs. No evidence of DVT on Doppler. Patient maintained on a heparin drip. Echocardiogram revealed a moderate to severely dilated right ventricle with moderately reduced right ventricular systolic function and elevated right ventricular systolic pressure 40-50 mmHg. Patient currently hemodynamically stable. Telemetry overnight showed sinus rhythm in the 80s without any atrial arrhythmias. -Continue metoprolol succinate 50 mg daily, monitor on telemetry for atrial arrhythmias. -Patient currently hypertensive, for now continue hydrochlorothiazide and lisinopril as ordered. -Continue heparin drip, will defer long-term anticoagulation recommendations to the primary team. -Troponin elevated likely in the setting of RV strain, troponin trending downward ([id number]). Case discussed with Dr. Anne, will follow. Supervising Physician Co-Signing Physician Notes Patient was seen and examined, chart, medications, telemetry reviewed. Patient presented with syncope in the setting of extensive bilateral pulmonary emboli. Echocardiogram does demonstrate evidence of right ventricular strain consistent with patient's diagnosis. No signs of arrhythmias on telemetry and suspect syncope secondary to acute pulmonary emboli. Would recommend as above treating pulmonary embolus continue usual medications Supplement potassium to greater than 4 given increased risk for atrial arrhythmias History of Present Illness Reason for Consultation: Syncope, BL PE Requesting Physician: [facility] Attending Physician: Nba Loredo MD History of Present Illness 85-year-old female initially presented to the emergency department due to multiple episodes of syncope. Was found to have extensive bilateral pulmonary emboli. She was started on a heparin drip. Troponins were elevated. Echocardiogram showed an LVEF of 60 to 65% with severely dilated right ventricle and moderately reduced right ventricular systolic function. Right ventricular systolic pressure elevated at 40 to 50 mmHg Bilateral venous Doppler: No evidence of DVT, superficial thrombolysis on the left. CTA of the chest: Extensive bilateral PE, Foci of subpleural airspace consolidation in the right lower lobe likely represent pulmonary infarcts. Correlate clinically for evidence of a superimposed infectious/inflammatory enteritis. There is no evidence of fracture or malalignment involving the thoracic spine. HS Troponin peaked at 4000 and now trending downward. Chart reviewed. Telemetry reviewed. Patient seen and examined at bedside. Upon entrance into the room patient was resting comfortably sitting up in bed. Denies any chest pain or unusual shortness of breath. She is currently on 3 L of supplemental oxygen via nasal cannula, new for her. She has been on bedrest. Denies any dizziness or further episodes of syncope. Denies any prior history of syncope or known heart disease. Telemetry: Sinus rhythm in the 80s, no atrial arrhythmias noted. Patient is on metoprolol succinate 50 mg daily. Past medical history: Hypertension Venous insufficiency Tremor Allergies Allergy/AdvReac Type Severity Reaction Status Date / Time No Known Allergies Allergy Verified 11/21/21 18:48 Home Medications Medication Instructions Recorded Confirmed Type alendronate 70 mg tablet 70 mg PO WK 11/21/21 11/21/21 History allopurinol 100 mg tablet 100 mg PO QAM 11/21/21 11/21/21 History calcium carbonate 600 mg-vitamin 1 tab PO QAM 11/21/21 11/21/21 History D3 10 mcg (400 unit) tablet (Calcium 600 + D(3)) gabapentin 100 mg capsule 100 mg PO TIDM 11/21/21 11/21/21 History hydrochlorothiazide 25 mg tablet 25 mg PO QAM 11/21/21 11/21/21 History lisinopril 30 mg tablet 30 mg PO DAILY 11/21/21 11/21/21 History metoprolol succinate 50 mg 50 mg PO QAM 11/21/21 11/21/21 History tablet,extended release 24 hr Patient History Medical History Hypertension Tremor Social History Smoking Status: Never smoker Hx Alcohol Use: No Hx Substance Use: No Preferred Language: Sinhala Communication Ability: Effective Labor Operator Required: No Beliefs That Will Affect Care: None marital status: Current Living Situation: Family Other Information That Helps Us Care for You: No Feels Safe at Home: Yes Safety Concerns: Feels Safe At This Time Assistive Devices: None Review of Systems Review of Systems: All systems reviewed & are unremarkable except as noted in HPI & below Physical Exam Constitutional: WD/WN, vitals as above no acute distress Eyes: PERRL, conjunctivae normal, anicteric sclerae Neck: normal visual inspection Respiratory: normal respiratory effort; no respiratory distress, no cough and not tachypneic Auscultation: lungs clear to auscultation bilaterally Cardiovascular: RRR, no murmur, no edema Heart Sounds: normal S1 and normal S2; no murmur Vessels: normal peripheral pulses; no JVD and no carotid bruit Extremities: no pedal edema and no edema Gastrointestinal (Abdomen): normal bowel sounds, soft, nontender, no hepatosplenomegaly Skin: no rashes, warm and dry Neurologic: Motor/Sensory: + tremor Psychiatric: A+Ox3, euthymic affect Results & Data ([facility]) Vital Signs (Past 12 Hours) Vital Signs Temp Pulse Pulse Resp BP Pulse Ox 11/22/21 07:31 36.7 C 83 18 142/74 H 96 11/22/21 03:58 36.6 C 82 22 157/69 H 94 11/21/21 23:04 88 11/21/21 22:52 91 H 11/21/21 21:30 36.7 C 91 H 20 132/71 99 Laboratory Results Cardiac Enzymes 11/21/21 11/22/21 11/22/21 Range/Units 15:01 05:35 10:50 AST 36 (13-39) U/L Troponin I High Sens 4272.4 H* 3110.6 H* D 2651.6 H* (0-14) pg/ml Coagulation 11/21/21 11/22/21 11/22/21 Range/Units 15:00 01:17 10:50 APTT 25.5 129.8 H* 55.9 H* (21.0-31.0) Seconds CBC 11/21/21 11/22/21 Range/Units 15:01 05:35 WBC 20.08 H 11.66 H (4.8-10.8) K/uL RBC 4.65 4.33 (4.2-5.4) M/uL Hgb 15.0 13.1 (12.0-16.0) g/dL Hct 43.6 40.2 (37-47) % Plt Count 103 L 123 L (130-400) K/uL Neut # (Auto) 17.07 H 8.50 H (1.4-6.5) K/uL Lymph # (Auto) 1.58 2.19 (1.2-3.4) K/uL Polk # (Auto) 1.25 H 0.68 H (0.11-0.59) K/uL Eos # (Auto) 0.06 0.22 (0-0.5) K/uL Baso # (Auto) 0.02 0.02 (0-0.2) K/uL Comprehensive Metabolic Panel 11/21/21 11/22/21 Range/Units 15:01 05:35 Sodium 137 137 (136-145) mmol/L Potassium 4.6 3.9 (3.5-5.1) mmol/L Chloride 104 106 (98-107) mmol/L Carbon Dioxide 23 23 (21-32) mmol/L BUN 22 17 (6-23) mg/dl Creatinine 1.01 0.79 (0.6-1.2) mg/dl Glucose 117 H 104 H (70-99(Fasting)) mg/dl Calcium 8.7 8.1 L (8.5-10.1) mg/dl AST 36 (13-39) U/L ALT 14 (7-52) U/L Alkaline Phosphatase 53 (34-104) U/L Total Protein 5.7 L (6.0-8.3) gm/dl Albumin 3.5 (3.4-5.0) gm/dl Intake and Output 11/21/21 11/22/21 11/22/21 22:59 06:59 14:59 Intake Total 300 / 455.1 155.1 / 455.1 1130.334 / 1130.334 Output Total 300 / 300 Balance 300 / 155.1 -144.9 / 155.1 1130.334 / 1130.334 Intake: IV 300 / 455.1 155.1 / 455.1 1130.334 / 1130.334 Heparin Sodium/Dextrose 25,000 155.1 / 155.1 130.334 / 130.334 units In 500 ml @ 850 UNITS/HR 17 mls/hr IV .Q24H [facility] Rx#: [id number] Sodium Chloride 0.9% 1000ML 1, 1000 / 1000 000 ml @ 80 mls/hr IV .[id number] [facility] Rx#:[id number] Left Antecubital 300 / 300 Output: Urine 300 / 300 Other: Other Intake Source npo # Unmeasured Voids 300 Weight 80.6 kg 80.5 kg Weight Measurement Method Built in [facility] Built in [facility] (1) Pulmonary emboli Acute cor pulmonale presence: with acute cor pulmonale Chronicity: acute Pulmonary embolism type: other Qualified Code(s): I26.09 - Other pulmonary embolism with acute cor pulmonale
[2021-11-22] MEDS: SODIUM CHLORIDE 0.9% 1000ML 1,000 ML IV SCH ×2 (10:56→23:36)
[2021-11-22 11:50] LABS: Partial Thromboplastin Time 55.9 Seconds (21.0-31.0)
--- NOTE | 2021-11-22 12:48 | Hospitalist Progress Note ---
Date of Service November 22, 2021 Assessment & Plan (1) Pulmonary emboli: Plan: 85-year-old female presents with syncope x2 times at home and also found to have bilateral extensive pulmonary embolism. 1. Syncope episodes, most likely secondary to extensive bilateral pulmonary embolism. The patient is also having elevated troponin, most likely could be from right heart strain. The patient is currently alert and oriented, hemodynamically stable, saturating well on RA. Emergency Room started her on IV heparin, which will be continued. Echocardiogram and Dopplers obtained. Monitor in the telemetry floor. 2. Elevated troponin, non-ST elevation myocardial infarction, possibly secondary to right heart strain. Troponin trending down Echocardiogram obtained, reviewed by cardiology. 3. Mild elevation of total bilirubin. We will follow the repeat laboratories. 4. Gout, continue allopurinol. 5. Hypertension. Continue hydrochlorothiazide, lisinopril and metoprolol succinate. We will monitor the blood pressure. 6. Chronic kidney disease stage III, presents with creatinine of 1.01. Follow BMP. DVT prophylaxis, on IV heparin. DISPOSITION:tele floor. Code status: full code. Admission and Anticipated Discharge Date Admission Date: November 21, 2021 Subjective Patient seen in follow-up of PE Started on IV heparin Troponin trending down She is currently sitting up in chair, eating, in no acute distress She reports she is feeling much better already Denies any chest pain palpitations, significant shortness of breath. Also denies hemoptysis, any significant cough, fevers chills. Denies abdominal pain, nausea vomiting. Review of Systems Review of Systems: All systems reviewed & are unremarkable except as noted in Subjective Physical Exam Physical Exam: GENERAL: The patient is of moderate build, not in acute distress. HEENT: NC/AT. EOMI. Pupils equal, round and reactive to light. Oral mucosa moist. NECK: No JVD, no neck masses. CARDIOVASCULAR: S1 and S2 heard. Regular rate and rhythm. No murmur, no gallop. RESPIRATORY SYSTEM: Normal AP diameter. No accessory muscle use. No wheezing, no crackles. ABDOMEN: Soft. Bowel sounds are present, nontender, no distention. NEURO: Alert and oriented. No facial droop. Speech is clear. Obeys simple commands. Moves extremities. EXTREMITIES: No edema, no erythema seen. Results & Data Results & Data ([facility]) Vital Signs (Past 12 Hours) Vital Signs Temp Pulse Pulse Resp BP Pulse Ox 11/22/21 12:00 36.9 C 79 16 150/94 H 97 11/22/21 08:00 75 11/22/21 07:31 36.7 C 83 18 142/74 H 96 11/22/21 03:58 36.6 C 82 22 157/69 H 94 Laboratory Results 11/22/21 11/22/21 11/22/21 Range/Units 10:50 10:50 07:30 WBC (4.8-10.8) K/uL RBC (4.2-5.4) M/uL Hgb (12.0-16.0) g/dL POC Hgb (12.0-16.0) g/dl Hct (37-47) % POC Hct (37-47) % MCV (80-100) fL MCH (25-34) pg MCHC (32-36) g/dL RDW Std Deviation (36.4-46.3) fL RDW Coeff of Jesus (11.5-14.5) % Plt Count (130-400) K/uL MPV (7.4-10.4) fL Immature Gran % (Auto) % Neut % (Auto) % Lymph % (Auto) % [place] % (Auto) % Eos % (Auto) % Baso % (Auto) % Neut # (Auto) (1.4-6.5) K/uL Lymph # (Auto) (1.2-3.4) K/uL [place] # (Auto) (0.11-0.59) K/uL Eos # (Auto) (0-0.5) K/uL Baso # (Auto) (0-0.2) K/uL Immature Gran # (Auto) (0.00-0.02) K/uL APTT 55.9 H* (21.0-31.0) Seconds PTT Ratio 2.0 POC Sodium (135-144) mmol/L Sodium (136-145) mmol/L POC Potassium (3.3-5.0) mmol/L Potassium (3.5-5.1) mmol/L POC Chloride (101-112) mmol/L Chloride (98-107) mmol/L Carbon Dioxide (21-32) mmol/L POC Total CO2 (24-31) mmol/L Anion Gap (3-11) POC Anion Gap (16-25) mmol/L POC BUN (7-18) mg/dl BUN (6-23) mg/dl Creatinine (0.6-1.2) mg/dl POC Creatinine (0.6-1.3) mg/dl Est Cr Clr Drug Dosing ml/min Est GFR ( Amer) ml/min Est GFR (Non-Af Amer) ml/min BUN/Creatinine Ratio (10-20) Glucose (70-99(Fasting)) mg/dl POC Glucose (other) (70-99) mg/dl Lactate (0.4-2.0) mmol/L Calcium (8.5-10.1) mg/dl POC Ioniz Calcium Al (1.12-1.32) mmol/l Magnesium (1.7-2.4) mg/dl Total Bilirubin (0.2-1.0) mg/dl AST (13-39) U/L ALT (7-52) U/L Alkaline Phosphatase (34-104) U/L Troponin I High Sens 2651.6 H* (0-14) pg/ml Total Protein (6.0-8.3) gm/dl Albumin (3.4-5.0) gm/dl Globulin (2.5-4.0) gm/dl Albumin/Globulin Ratio (0.9-2) TSH (0.300-4.500) uIu/ml Urine Color Yellow Urine Appearance Clear (Clear) Urine pH 6.0 (4.5-7.5) Ur Specific [place] 1.034 H (1.000-1.030) Urine Protein Negative (Negative) Urine Glucose (UA) Negative (Negative) Urine Ketones Negative (Negative) Urine Blood Trace H (Negative) Urine Nitrite Negative (Negative) Urine Bilirubin Negative (Negative) Urine Urobilinogen Negative (Negative) Ur Leukocyte Esterase 2+ H (Negative) Urine WBC (Auto) >30 H (0-5) /hpf Urine RBC (Auto) 0-4 (0-4) /hpf U Hyaline Cast (Auto) 1-5 (0-5) /lpf U Epithel Cells (Auto) 5-10 H (0-5) /lpf Urine Bacteria (Auto) 1+ H (Negative) Urine Yeast Not Reportable SARS-CoV-2, RNA, NAAT (NEGATIVE) 11/22/21 11/22/21 11/22/21 Range/Units 05:35 05:35 05:35 WBC 11.66 H (4.8-10.8) K/uL RBC 4.33 (4.2-5.4) M/uL Hgb 13.1 (12.0-16.0) g/dL POC Hgb (12.0-16.0) g/dl Hct 40.2 (37-47) % POC Hct (37-47) % MCV 92.8 (80-100) fL MCH 30.3 (25-34) pg MCHC 32.6 (32-36) g/dL RDW Std Deviation 48.5 H (36.4-46.3) fL RDW Coeff of Jesus 14.2 (11.5-14.5) % Plt Count 123 L (130-400) K/uL MPV 10.2 (7.4-10.4) fL Immature Gran % (Auto) 0.4 % Neut % (Auto) 72.9 % Lymph % (Auto) 18.8 % [place] % (Auto) 5.8 % Eos % (Auto) 1.9 % Baso % (Auto) 0.2 % Neut # (Auto) 8.50 H (1.4-6.5) K/uL Lymph # (Auto) 2.19 (1.2-3.4) K/uL [place] # (Auto) 0.68 H (0.11-0.59) K/uL Eos # (Auto) 0.22 (0-0.5) K/uL Baso # (Auto) 0.02 (0-0.2) K/uL Immature Gran # (Auto) 0.05 H (0.00-0.02) K/uL APTT (21.0-31.0) Seconds PTT Ratio POC Sodium (135-144) mmol/L Sodium 137 (136-145) mmol/L POC Potassium (3.3-5.0) mmol/L Potassium 3.9 (3.5-5.1) mmol/L POC Chloride (101-112) mmol/L Chloride 106 (98-107) mmol/L Carbon Dioxide 23 (21-32) mmol/L POC Total CO2 (24-31) mmol/L Anion Gap 8 (3-11) POC Anion Gap (16-25) mmol/L POC BUN (7-18) mg/dl BUN 17 (6-23) mg/dl Creatinine 0.79 (0.6-1.2) mg/dl POC Creatinine (0.6-1.3) mg/dl Est Cr Clr Drug Dosing 50.9 ml/min Est GFR ( Amer) 79.7 ml/min Est GFR (Non-Af Amer) 68.7 ml/min BUN/Creatinine Ratio 21.5 H (10-20) Glucose 104 H (70-99(Fasting)) mg/dl POC Glucose (other) (70-99) mg/dl Lactate (0.4-2.0) mmol/L Calcium 8.1 L (8.5-10.1) mg/dl POC Ioniz Calcium Al (1.12-1.32) mmol/l Magnesium 1.9 (1.7-2.4) mg/dl Total Bilirubin (0.2-1.0) mg/dl AST (13-39) U/L ALT (7-52) U/L Alkaline Phosphatase (34-104) U/L Troponin I High Sens 3110.6 H* D (0-14) pg/ml Total Protein (6.0-8.3) gm/dl Albumin (3.4-5.0) gm/dl Globulin (2.5-4.0) gm/dl Albumin/Globulin Ratio (0.9-2) TSH (0.300-4.500) uIu/ml Urine Color Urine Appearance (Clear) Urine pH (4.5-7.5) Ur Specific [place] (1.000-1.030) Urine Protein (Negative) Urine Glucose (UA) (Negative) Urine Ketones (Negative) Urine Blood (Negative) Urine Nitrite (Negative) Urine Bilirubin (Negative) Urine Urobilinogen (Negative) Ur Leukocyte Esterase (Negative) Urine WBC (Auto) (0-5) /hpf Urine RBC (Auto) (0-4) /hpf U Hyaline Cast (Auto) (0-5) /lpf U Epithel Cells (Auto) (0-5) /lpf Urine Bacteria (Auto) (Negative) Urine Yeast SARS-CoV-2, RNA, NAAT (NEGATIVE) 11/22/21 11/21/21 11/21/21 Range/Units 01:17 18:52 18:50 WBC (4.8-10.8) K/uL RBC (4.2-5.4) M/uL Hgb (12.0-16.0) g/dL POC Hgb (12.0-16.0) g/dl Hct (37-47) % POC Hct (37-47) % MCV (80-100) fL MCH (25-34) pg MCHC (32-36) g/dL RDW Std Deviation (36.4-46.3) fL RDW Coeff of Jesus (11.5-14.5) % Plt Count (130-400) K/uL MPV (7.4-10.4) fL Immature Gran % (Auto) % Neut % (Auto) % Lymph % (Auto) % [place] % (Auto) % Eos % (Auto) % Baso % (Auto) % Neut # (Auto) (1.4-6.5) K/uL Lymph # (Auto) (1.2-3.4) K/uL [place] # (Auto) (0.11-0.59) K/uL Eos # (Auto) (0-0.5) K/uL Baso # (Auto) (0-0.2) K/uL Immature Gran # (Auto) (0.00-0.02) K/uL APTT 129.8 H* (21.0-31.0) Seconds PTT Ratio 4.7 POC Sodium (135-144) mmol/L Sodium (136-145) mmol/L POC Potassium (3.3-5.0) mmol/L Potassium (3.5-5.1) mmol/L POC Chloride (101-112) mmol/L Chloride (98-107) mmol/L Carbon Dioxide (21-32) mmol/L POC Total CO2 (24-31) mmol/L Anion Gap (3-11) POC Anion Gap (16-25) mmol/L POC BUN (7-18) mg/dl BUN (6-23) mg/dl Creatinine (0.6-1.2) mg/dl POC Creatinine (0.6-1.3) mg/dl Est Cr Clr Drug Dosing ml/min Est GFR ( Amer) ml/min Est GFR (Non-Af Amer) ml/min BUN/Creatinine Ratio (10-20) Glucose (70-99(Fasting)) mg/dl POC Glucose (other) (70-99) mg/dl Lactate 1.4 (0.4-2.0) mmol/L Calcium (8.5-10.1) mg/dl POC Ioniz Calcium Al (1.12-1.32) mmol/l Magnesium (1.7-2.4) mg/dl Total Bilirubin (0.2-1.0) mg/dl AST (13-39) U/L ALT (7-52) U/L Alkaline Phosphatase (34-104) U/L Troponin I High Sens (0-14) pg/ml Total Protein (6.0-8.3) gm/dl Albumin (3.4-5.0) gm/dl Globulin (2.5-4.0) gm/dl Albumin/Globulin Ratio (0.9-2) TSH (0.300-4.500) uIu/ml Urine Color Urine Appearance (Clear) Urine pH (4.5-7.5) Ur Specific [place] (1.000-1.030) Urine Protein (Negative) Urine Glucose (UA) (Negative) Urine Ketones (Negative) Urine Blood (Negative) Urine Nitrite (Negative) Urine Bilirubin (Negative) Urine Urobilinogen (Negative) Ur Leukocyte Esterase (Negative) Urine WBC (Auto) (0-5) /hpf Urine RBC (Auto) (0-4) /hpf U Hyaline Cast (Auto) (0-5) /lpf U Epithel Cells (Auto) (0-5) /lpf Urine Bacteria (Auto) (Negative) Urine Yeast SARS-CoV-2, RNA, NAAT NEGATIVE (NEGATIVE) 11/21/21 11/21/21 11/21/21 Range/Units 17:20 15:01 15:01 WBC (4.8-10.8) K/uL RBC (4.2-5.4) M/uL Hgb (12.0-16.0) g/dL POC Hgb 13.3 (12.0-16.0) g/dl Hct (37-47) % POC Hct 39 (37-47) % MCV (80-100) fL MCH (25-34) pg MCHC (32-36) g/dL RDW Std Deviation (36.4-46.3) fL RDW Coeff of Jesus (11.5-14.5) % Plt Count (130-400) K/uL MPV (7.4-10.4) fL Immature Gran % (Auto) % Neut % (Auto) % Lymph % (Auto) % [place] % (Auto) % Eos % (Auto) % Baso % (Auto) % Neut # (Auto) (1.4-6.5) K/uL Lymph # (Auto) (1.2-3.4) K/uL [place] # (Auto) (0.11-0.59) K/uL Eos # (Auto) (0-0.5) K/uL Baso # (Auto) (0-0.2) K/uL Immature Gran # (Auto) (0.00-0.02) K/uL APTT (21.0-31.0) Seconds PTT Ratio POC Sodium 138 (135-144) mmol/L Sodium 137 (136-145) mmol/L POC Potassium 4.0 (3.3-5.0) mmol/L Potassium 4.6 (3.5-5.1) mmol/L POC Chloride 103 (101-112) mmol/L Chloride 104 (98-107) mmol/L Carbon Dioxide 23 (21-32) mmol/L POC Total CO2 24 (24-31) mmol/L Anion Gap 10 (3-11) POC Anion Gap 16.0 (16-25) mmol/L POC BUN 25 H (7-18) mg/dl BUN 22 (6-23) mg/dl Creatinine 1.01 (0.6-1.2) mg/dl POC Creatinine 0.9 (0.6-1.3) mg/dl Est Cr Clr Drug Dosing 39.7 ml/min Est GFR ( Amer) 59.2 ml/min Est GFR (Non-Af Amer) 51.1 ml/min BUN/Creatinine Ratio 21.8 H (10-20) Glucose 117 H (70-99(Fasting)) mg/dl POC Glucose (other) 119 H (70-99) mg/dl Lactate (0.4-2.0) mmol/L Calcium 8.7 (8.5-10.1) mg/dl POC Ioniz Calcium Al 1.13 (1.12-1.32) mmol/l Magnesium 2.0 (1.7-2.4) mg/dl Total Bilirubin 1.6 H (0.2-1.0) mg/dl AST 36 (13-39) U/L ALT 14 (7-52) U/L Alkaline Phosphatase 53 (34-104) U/L Troponin I High Sens 4272.4 H* (0-14) pg/ml Total Protein 5.7 L (6.0-8.3) gm/dl Albumin 3.5 (3.4-5.0) gm/dl Globulin 2.2 L (2.5-4.0) gm/dl Albumin/Globulin Ratio 1.6 (0.9-2) TSH 2.513 (0.300-4.500) uIu/ml Urine Color Urine Appearance (Clear) Urine pH (4.5-7.5) Ur Specific [place] (1.000-1.030) Urine Protein (Negative) Urine Glucose (UA) (Negative) Urine Ketones (Negative) Urine Blood (Negative) Urine Nitrite (Negative) Urine Bilirubin (Negative) Urine Urobilinogen (Negative) Ur Leukocyte Esterase (Negative) Urine WBC (Auto) (0-5) /hpf Urine RBC (Auto) (0-4) /hpf U Hyaline Cast (Auto) (0-5) /lpf U Epithel Cells (Auto) (0-5) /lpf Urine Bacteria (Auto) (Negative) Urine Yeast SARS-CoV-2, RNA, NAAT (NEGATIVE) 11/21/21 11/21/21 Range/Units 15:01 15:00 WBC 20.08 H (4.8-10.8) K/uL RBC 4.65 (4.2-5.4) M/uL Hgb 15.0 (12.0-16.0) g/dL POC Hgb (12.0-16.0) g/dl Hct 43.6 (37-47) % POC Hct (37-47) % MCV 93.8 (80-100) fL MCH 32.3 (25-34) pg MCHC 34.4 (32-36) g/dL RDW Std Deviation 47.7 H (36.4-46.3) fL RDW Coeff of Jesus 14.1 (11.5-14.5) % Plt Count 103 L (130-400) K/uL MPV 11.0 H (7.4-10.4) fL Immature Gran % (Auto) 0.5 % Neut % (Auto) 85.0 % Lymph % (Auto) 7.9 % [place] % (Auto) 6.2 % Eos % (Auto) 0.3 % Baso % (Auto) 0.1 % Neut # (Auto) 17.07 H (1.4-6.5) K/uL Lymph # (Auto) 1.58 (1.2-3.4) K/uL [place] # (Auto) 1.25 H (0.11-0.59) K/uL Eos # (Auto) 0.06 (0-0.5) K/uL Baso # (Auto) 0.02 (0-0.2) K/uL Immature Gran # (Auto) 0.10 H (0.00-0.02) K/uL APTT 25.5 (21.0-31.0) Seconds PTT Ratio 0.9 POC Sodium (135-144) mmol/L Sodium (136-145) mmol/L POC Potassium (3.3-5.0) mmol/L Potassium (3.5-5.1) mmol/L POC Chloride (101-112) mmol/L Chloride (98-107) mmol/L Carbon Dioxide (21-32) mmol/L POC Total CO2 (24-31) mmol/L Anion Gap (3-11) POC Anion Gap (16-25) mmol/L POC BUN (7-18) mg/dl BUN (6-23) mg/dl Creatinine (0.6-1.2) mg/dl POC Creatinine (0.6-1.3) mg/dl Est Cr Clr Drug Dosing ml/min Est GFR ( Amer) ml/min Est GFR (Non-Af Amer) ml/min BUN/Creatinine Ratio (10-20) Glucose (70-99(Fasting)) mg/dl POC Glucose (other) (70-99) mg/dl Lactate (0.4-2.0) mmol/L Calcium (8.5-10.1) mg/dl POC Ioniz Calcium Al (1.12-1.32) mmol/l Magnesium (1.7-2.4) mg/dl Total Bilirubin (0.2-1.0) mg/dl AST (13-39) U/L ALT (7-52) U/L Alkaline Phosphatase (34-104) U/L Troponin I High Sens (0-14) pg/ml Total Protein (6.0-8.3) gm/dl Albumin (3.4-5.0) gm/dl Globulin (2.5-4.0) gm/dl Albumin/Globulin Ratio (0.9-2) TSH (0.300-4.500) uIu/ml Urine Color Urine Appearance (Clear) Urine pH (4.5-7.5) Ur Specific [place] (1.000-1.030) Urine Protein (Negative) Urine Glucose (UA) (Negative) Urine Ketones (Negative) Urine Blood (Negative) Urine Nitrite (Negative) Urine Bilirubin (Negative) Urine Urobilinogen (Negative) Ur Leukocyte Esterase (Negative) Urine WBC (Auto) (0-5) /hpf Urine RBC (Auto) (0-4) /hpf U Hyaline Cast (Auto) (0-5) /lpf U Epithel Cells (Auto) (0-5) /lpf Urine Bacteria (Auto) (Negative) Urine Yeast SARS-CoV-2, RNA, NAAT (NEGATIVE) Medications Administered Current Inpatient Medications Acetaminophen (Acetaminophen 325 Mg Tab) 650 mg PO Q4H PRN PRN Reason: Pain or Fever Stop: 12/21/21 21:34 Allopurinol ([facility]ol 100 Mg Tab) [facility] [place] Stop: 12/22/21 08:59 Last Admin: 11/22/21 09:19 Dose: 100 mg Documented by: Gabapentin (Gabapentin 100 Mg Cap) 100 [facility] [place] Stop: 12/22/21 07:59 Last Admin: 11/22/21 12:20 Dose: 100 mg Documented by: Hydrochlorothiazide (Hydrochlorothiazide 25 Mg Tab) [facility] [place] Stop: 12/22/21 08:59 Last Admin: 11/22/21 09:21 Dose: 25 mg Documented by: Heparin Sodium/Dextrose (Heparin Sodium/Dextrose) 25,000 units in 500 mls @ 17 mls/hr IV .Q24H EDNA; Protocol Stop: 12/21/21 18:59 Last Titration: 11/22/21 11:53 Dose: 850 units/hr, 17 mls/hr Documented by: Sodium Chloride (Nss 1000ml) 1,000 mls @ 80 mls/hr IV [id number] Stop: 12/21/21 21:34 Last Admin: 11/22/21 10:56 Dose: 80 mls/hr Documented by: Lisinopril (Lisinopril 10 Mg Tab) 30 mg PO DAILY [facility] Stop: 12/22/21 08:59 Last Admin: 11/22/21 09:20 Dose: 30 mg Documented by: Metoprolol Succinate (Metoprolol Succ 50mg Ext Rel Tab) 50 mg PO QAM [facility] Stop: 12/22/21 08:59 Last Admin: 11/22/21 09:21 Dose: 50 mg Documented by: Multivitamins/Minerals (Calcium 600mg + Vit D 400 Iu Tab) 1 tab PO [facility] Stop: 12/22/21 08:59 Last Admin: 11/22/21 09:21 Dose: 1 tab Documented by: Nitroglycerin (Nitroglycerin Sl 0.4 Mg/Tab Tab) 0.4 mg SL UD PRN PRN Reason: Chest Pain Stop: 12/21/21 21:34 Polyethylene Glycol (Polyethylene (Miralax) 17 Gm Pack) 17 gm PO DAILY PRN PRN Reason: Constipation Stop: 12/21/21 21:34 (1) Pulmonary emboli Acute cor pulmonale presence: with acute cor pulmonale Chronicity: acute Pulmonary embolism type: other Qualified Code(s): I26.09 - Other pulmonary embolism with acute cor pulmonale
[2021-11-22] MEDS ORDERED: POTASSIUM CHLORIDE CRTAB 20 MEQ TABCR PO ONE (15:11)
--- NOTE | 2021-11-22 19:00 | Electrocardiogram Report ---
Test Reason : Blood Pressure : / mmHG Vent. Rate : 103 BPM Atrial Rate : 103 BPM P-R Int : 174 ms QRS Dur : 084 ms QT Int : 340 ms P-R-T Axes : 060 -02 069 degrees QTc Int : 445 ms Sinus tachycardia with Fusion complexes Possible Left atrial enlargement Anterior infarct (cited on or before 21-NOV-2021) Abnormal ECG When compared with ECG of 21-NOV-2021 16:58, (unconfirmed) Fusion complexes are now Present Confirmed by Bobby Ghotra ([id number]) on 11/22/2021 6:59:56 PM Referred By: REFERRED SELF Confirmed By:Enrico Ghotra
--- NOTE | 2021-11-22 19:05 | Electrocardiogram Report ---
Test Reason : Blood Pressure : / mmHG Vent. Rate : 115 BPM Atrial Rate : 115 BPM P-R Int : 168 ms QRS Dur : 080 ms QT Int : 310 ms P-R-T Axes : 061 -05 066 degrees QTc Int : 428 ms Sinus tachycardia Possible Left atrial enlargement Poor R wave progression, consider anterior [place] vs. lead placement vs. LVH Abnormal ECG When compared with ECG of 12-AUG-1998 12:29, Vent. rate has increased BY 50 BPM QRS voltage has decreased Confirmed by Bobby Ghotra ([id number]) on 11/22/2021 7:04:33 PM Referred By: REFERRED SELF Confirmed By:Enrico Ghotra
--- NOTE | 2021-11-22 19:06 | Electrocardiogram Report ---
Test Reason : Blood Pressure : / mmHG Vent. Rate : 081 BPM Atrial Rate : 081 BPM P-R Int : 178 ms QRS Dur : 086 ms QT Int : 384 ms P-R-T Axes : 052 005 021 degrees QTc Int : 446 ms Normal sinus rhythm Nonspecific T wave abnormality Abnormal ECG When compared with ECG of 21-NOV-2021 18:39, (unconfirmed) Fusion complexes are no longer Present T wave inversion now evident in Inferior leads Confirmed by Bobby Ghotra ([id number]) on 11/22/2021 7:06:27 PM Referred By: REFERRED SELF Confirmed By:Enrico Ghotra
[2021-11-22] MEDS: HEPARIN SODIUM/DEXTROSE 25,000 UNITS/500 ML BAG IV SCH (23:35)
[2021-11-23 07:20] LABS: Hematocrit (blood only) 36.6 % (37-47); Hemoglobin 12.1 g/dL (12.0-16.0); Mean Corpuscular Hemoglobin 30.6 pg (25-34); Mean Corpuscular Hgb Conc 33.1 g/dL (32-36); Mean Corpuscular Volume 92.7 fL (80-100); Mean Platelet Volume 10.5 fL (7.4-10.4); Platelet Count 115 K/uL (130-400); RDW Coefficient of Variation 14.2 % (11.5-14.5); Red Blood Count 3.95 M/uL (4.2-5.4); White Blood Count 9.58 K/uL (4.8-10.8)
--- NOTE | 2021-11-23 07:38 | Cardiology Progress Note ---
Date of Service November 23, 2021 Assessment & Plan (1) Pulmonary emboli: (2) Right ventricular dilation: (3) Elevated troponin: (4) Syncope and collapse: (5) Hypertension: Plan: 85-year-old female. Recent episode of syncope in the setting of newly diagnosed extensive bilateral PEs. No evidence of DVT on Doppler. Patient maintained on a heparin drip. Echocardiogram revealed a moderate to severely dilated right ventricle with moderately reduced right ventricular systolic function and elevated right ventricular systolic pressure 40-50 mmHg. Patient currently hemodynamically stable. Telemetry overnight showed sinus rhythm in the 80s without any atrial arrhythmias. -Continue metoprolol succinate 50 mg daily, monitor on telemetry for atrial arrhythmias. -Patient currently hypertensive, for now continue hydrochlorothiazide and lisinopril as ordered. -Continue heparin drip, will defer long-term anticoagulation recommendations to the primary team. -Troponin elevated likely in the setting of RV strain, troponin trending downward ([id number]). Case discussed with Dr. Anne, will follow. Admission and Anticipated Discharge Date Admission Date: November 21, 2021 Subjective 85-year-old female. Recent episode of syncope in the setting of newly diagnosed extensive bilateral PEs. No evidence of DVT on Doppler. Echocardiogram revealed a moderate to severely dilated right ventricle with moderately reduced right ventricular systolic function and elevated right ventricular systolic pressure 40-50 mmHg Patient maintained on a heparin drip. Tele: Chart and telemetry reviewed. Patient seen and examined at bedside. Physical Exam Constitutional: WD/WN, vitals as above no acute distress Eyes: PERRL, conjunctivae normal, anicteric sclerae Neck: normal visual inspection Respiratory: normal respiratory effort; no respiratory distress, no cough and not tachypneic Auscultation: lungs clear to auscultation bilaterally Cardiovascular: RRR, no murmur, no edema Heart Sounds: normal S1 and normal S2; no murmur Vessels: normal peripheral pulses; no JVD and no carotid bruit Extremities: no pedal edema and no edema Gastrointestinal (Abdomen): normal bowel sounds, soft, nontender, no hepatosplenomegaly Skin: no rashes, warm and dry Neurologic: Motor/Sensory: + tremor Psychiatric: A+Ox3, euthymic affect Results & Data ([facility]) Vital Signs (Past 12 Hours) Vital Signs Temp Pulse Pulse Resp BP Pulse Ox 11/23/21 03:00 36.6 C 80 16 113/61 93 11/23/21 01:44 85 11/22/21 23:00 37.2 C 87 22 93/58 L 92 (1) Pulmonary emboli Acute cor pulmonale presence: with acute cor pulmonale Chronicity: acute Pulmonary embolism type: other Qualified Code(s): I26.09 - Other pulmonary embolism with acute cor pulmonale
[2021-11-23 07:44] LABS: Partial Thromboplastin Ratio 1.8
[2021-11-23 07:48] LABS: BUN Creatinine Ratio 19.5 (10-20); Calcium 7.4 mg/dl (8.5-10.1); Creatinine Clr Calc Pharmacy 50.4 ml/min; Est GFR (African American) 76.2 ml/min; Est GFR (Non-African American) 65.7 ml/min; Magnesium 1.8 mg/dl (1.7-2.4); Phosphorus 1.8 mg/dl (2.5-4.9); Potassium 3.7 mmol/L (3.5-5.1)
[2021-11-23 07:57] LABS: Partial Thromboplastin Time 49.9 Seconds (21.0-31.0)
[2021-11-23] MEDS: lisinopril 10 MG TAB PO SCH (08:10)
[2021-11-23] MEDS: METOPROLOL SUCC 50MG EXT REL TAB PO SCH (08:10)
[2021-11-23] MEDS: allopurinoL 100 MG TAB PO SCH (08:11)
[2021-11-23] MEDS: CALCIUM 600MG + VIT D 400 IU TAB PO SCH (08:11)
[2021-11-23] MEDS: hydroCHLOROthiazide 25 MG TAB PO SCH (08:11)
[2021-11-23] MEDS: GABAPENTIN 100 MG CAP PO SCH ×3 (08:11→16:33)
[2021-11-23] MEDS: SODIUM CHLORIDE 0.9% 1000ML 1,000 ML IV SCH (11:53)
--- NOTE | 2021-11-23 11:56 | Electrocardiogram Report ---
Test Reason : Blood Pressure : / mmHG Vent. Rate : 074 BPM Atrial Rate : 074 BPM P-R Int : 176 ms QRS Dur : 092 ms QT Int : 446 ms P-R-T Axes : 053 017 012 degrees QTc Int : 495 ms Normal sinus rhythm Poor R wave progression, consider anterior [place] vs. lead placement vs. LVH T wave abnormality, consider lateral ischemia Abnormal ECG When compared with ECG of 22-NOV-2021 04:22, T wave inversion now evident in Lateral leads QT has lengthened Confirmed by Bobby Ghotra ([id number]) on 11/23/2021 11:55:56 AM Referred By: REFERRED SELF Confirmed By:Enrico Ghotra
--- NOTE | 2021-11-23 14:10 | Hospitalist Progress Note ---
Date of Service November 23, 2021 Assessment & Plan (1) Pulmonary emboli: Plan: 85-year-old female presents with syncope x2 times at home and also found to have bilateral extensive pulmonary embolism. 1. Syncope episodes, most likely secondary to extensive bilateral pulmonary embolism. The patient is also having elevated troponin on admission, most likely could be from right heart strain. The patient is alert and oriented, hemodynamically stable, saturating well on RA. Started IV heparin in ED, which we continued. Start coumadin today. Echocardiogram and Dopplers obtained. Monitor in the telemetry floor. 2. Elevated troponin, secondary to right heart strain. Troponin trended down Echocardiogram obtained, reviewed by cardiology. 3. Mild elevation of total bilirubin. follow the repeat laboratories. 4. Gout, continue allopurinol. 5. Hypertension. Continue hydrochlorothiazide, lisinopril and metoprolol succinate. We will monitor the blood pressure. 6. Chronic kidney disease stage III, presents with creatinine of 1.01. Follow BMP. DVT prophylaxis, on IV heparin. DISPOSITION:tele floor. Code status: full code. Admission and Anticipated Discharge Date Admission Date: November 21, 2021 Subjective Patient seen in follow-up of PE Started on IV heparin on admission, will start coumadin today Pt is sitting up in chair, in no acute distress She reports feeling well Denies any chest pain palpitations, significant shortness of breath. Also denies hemoptysis, any significant cough, fevers chills. Denies abdominal pain, nausea vomiting. Review of Systems Review of Systems: All systems reviewed & are unremarkable except as noted in Subjective Physical Exam Physical Exam: GENERAL: The patient is of moderate build, not in acute distress. HEENT: NC/AT. EOMI. Pupils equal, round and reactive to light. Oral mucosa moist. NECK: No JVD, no neck masses. CARDIOVASCULAR: S1 and S2 heard. Regular rate and rhythm. No murmur, no gallop. RESPIRATORY SYSTEM: Normal AP diameter. No accessory muscle use. No wheezing, no crackles. ABDOMEN: Soft. Bowel sounds are present, nontender, no distention. NEURO: Alert and oriented. No facial droop. Speech is clear. Obeys simple commands. Moves extremities. EXTREMITIES: No edema, no erythema seen. Results & Data Results & Data ([facility]) Vital Signs (Past 12 Hours) Vital Signs Temp Pulse Pulse Resp BP Pulse Ox 11/23/21 11:30 36.6 C 72 22 140/63 97 11/23/21 08:00 73 11/23/21 07:53 36.6 C 82 21 133/80 95 11/23/21 03:00 36.6 C 80 16 113/61 93 Laboratory Results 11/23/21 11/23/21 11/23/21 Range/Units 06:45 06:45 06:45 WBC 9.58 (4.8-10.8) K/uL RBC 3.95 L (4.2-5.4) M/uL Hgb 12.1 (12.0-16.0) g/dL Hct 36.6 L (37-47) % MCV 92.7 (80-100) fL MCH 30.6 (25-34) pg MCHC 33.1 (32-36) g/dL RDW Std Deviation 48.0 H (36.4-46.3) fL RDW Coeff of Jesus 14.2 (11.5-14.5) % Plt Count 115 L (130-400) K/uL MPV 10.5 H (7.4-10.4) fL APTT 49.9 H* (21.0-31.0) Seconds PTT Ratio 1.8 Sodium 136 (136-145) mmol/L Potassium 3.7 (3.5-5.1) mmol/L Chloride 107 (98-107) mmol/L Carbon Dioxide 23 (21-32) mmol/L Anion Gap 6 (3-11) BUN 16 (6-23) mg/dl Creatinine 0.82 (0.6-1.2) mg/dl Est Cr Clr Drug Dosing 50.4 ml/min Est GFR ( Amer) 76.2 ml/min Est GFR (Non-Af Amer) 65.7 ml/min BUN/Creatinine Ratio 19.5 (10-20) Glucose 100 H (70-99(Fasting)) mg/dl Calcium 7.4 L (8.5-10.1) mg/dl Phosphorus 1.8 L (2.5-4.9) mg/dl Magnesium 1.8 (1.7-2.4) mg/dl Troponin I High Sens (0-14) pg/ml 11/22/21 Range/Units 16:44 WBC (4.8-10.8) K/uL RBC (4.2-5.4) M/uL Hgb (12.0-16.0) g/dL Hct (37-47) % MCV (80-100) fL MCH (25-34) pg MCHC (32-36) g/dL RDW Std Deviation (36.4-46.3) fL RDW Coeff of Jesus (11.5-14.5) % Plt Count (130-400) K/uL MPV (7.4-10.4) fL APTT (21.0-31.0) Seconds PTT Ratio Sodium (136-145) mmol/L Potassium (3.5-5.1) mmol/L Chloride (98-107) mmol/L Carbon Dioxide (21-32) mmol/L Anion Gap (3-11) BUN (6-23) mg/dl Creatinine (0.6-1.2) mg/dl Est Cr Clr Drug Dosing ml/min Est GFR ( Amer) ml/min Est GFR (Non-Af Amer) ml/min BUN/Creatinine Ratio (10-20) Glucose (70-99(Fasting)) mg/dl Calcium (8.5-10.1) mg/dl Phosphorus (2.5-4.9) mg/dl Magnesium (1.7-2.4) mg/dl Troponin I High Sens 2668.2 H* (0-14) pg/ml Medications Administered Current Inpatient Medications Acetaminophen (Acetaminophen 325 Mg Tab) 650 mg PO Q4H PRN PRN Reason: Pain or Fever Stop: 12/21/21 21:34 Allopurinol (Allopurinol 100 Mg Tab) [facility] Stop: 12/22/21 08:59 Last Admin: 11/23/21 08:11 Dose: 100 mg Documented by: Gabapentin (Gabapentin 100 Mg Cap) 100 mg PO TIDM [facility] Stop: 12/22/21 07:59 Last Admin: 11/23/21 11:55 Dose: 100 mg Documented by: Hydrochlorothiazide (Hydrochlorothiazide 25 Mg Tab) 25 mg PO QAM [facility] Stop: 12/22/21 08:59 Last Admin: 11/23/21 08:11 Dose: 25 mg Documented by: Heparin Sodium/Dextrose (Heparin Sodium/Dextrose) 25,000 units in 500 mls @ 17 mls/hr IV .Q24H [facility]; Protocol Stop: 12/21/21 18:59 Last Titration: 11/23/21 07:04 Dose: 850 units/hr, 17 mls/hr Documented by: Lisinopril (Lisinopril 10 Mg Tab) 30 mg PO DAILY [facility] Stop: 12/22/21 08:59 Last Admin: 11/23/21 08:10 Dose: 30 mg Documented by: Metoprolol Succinate (Metoprolol Succ 50mg Ext Rel Tab) 50 mg PO QAM [facility] Stop: 12/22/21 08:59 Last Admin: 11/23/21 08:10 Dose: 50 mg Documented by: Multivitamins/Minerals (Calcium 600mg + Vit D 400 Iu Tab) 1 tab PO [facility] Stop: 12/22/21 08:59 Last Admin: 11/23/21 08:11 Dose: 1 tab Documented by: Nitroglycerin (Nitroglycerin Sl 0.4 Mg/Tab Tab) 0.4 mg SL UD PRN PRN Reason: Chest Pain Stop: 12/21/21 21:34 Polyethylene Glycol (Polyethylene (Miralax) 17 Gm Pack) 17 gm PO DAILY PRN PRN Reason: Constipation Stop: 12/21/21 21:34 Potassium Chloride (Potassium Chloride Pwd 20 Meq Pack) 20 meq PO BID [facility] Stop: 12/23/21 20:59 (1) Pulmonary emboli Acute cor pulmonale presence: with acute cor pulmonale Chronicity: acute Pulmonary embolism type: other Qualified Code(s): I26.09 - Other pulmonary embolism with acute cor pulmonale
[2021-11-23] MEDS: MAGNESIUM OXIDE 400 MG TAB PO SCH (16:33)
[2021-11-23] MEDS: WARFARIN SOD 5 MG TAB PO SCH (16:34)
[2021-11-23] MEDS: POTASSIUM CHLORIDE PWD 20 MEQ PACK PO SCH (20:34)
[2021-11-24] MEDS: HEPARIN SODIUM/DEXTROSE 25,000 UNITS/500 ML BAG IV SCH (05:44)
[2021-11-24 06:52] LABS: Prothrombin Time 10.6 Seconds (9.0-12.0)
[2021-11-24 07:49] LABS: Partial Thromboplastin Ratio 1.7
[2021-11-24 08:04] LABS: Partial Thromboplastin Time 45.8 Seconds (21.0-31.0)
[2021-11-24] MEDS: METOPROLOL SUCC 50MG EXT REL TAB PO SCH (08:14)
[2021-11-24] MEDS: MAGNESIUM OXIDE 400 MG TAB PO SCH (08:14)
[2021-11-24] MEDS: GABAPENTIN 100 MG CAP PO SCH ×3 (08:14→16:54)
[2021-11-24] MEDS: allopurinoL 100 MG TAB PO SCH (08:15)
[2021-11-24] MEDS: hydroCHLOROthiazide 25 MG TAB PO SCH (08:15)
[2021-11-24] MEDS: POTASSIUM CHLORIDE PWD 20 MEQ PACK PO SCH (08:15)
[2021-11-24] MEDS: lisinopril 10 MG TAB PO SCH (08:15)
[2021-11-24] MEDS: CALCIUM 600MG + VIT D 400 IU TAB PO SCH (08:15)
--- NOTE | 2021-11-24 15:33 | Hospitalist Progress Note ---
Date of Service November 24, 2021 Assessment & Plan (1) Pulmonary emboli: Plan: 85-year-old female presents with syncope 2 times at home and also found to have bilateral extensive pulmonary embolism. CTA chest 11/21 1. Streak and motion compromised examinations. 2. Extensive bilateral pulmonary emboli as above. 3. Foci of subpleural airspace consolidation in the right lower lobe likely represent pulmonary infarcts. Correlate clinically for evidence of a superimposed infectious/inflammatory enteritis. 4. There is no evidence of fracture or malalignment involving the thoracic spine. 5. Mild cardiomegaly. 6. Additional findings as above. US LE- no DVT 1.Syncopal episode- most likely secondary to extensive bilateral pulmonary embolism. 2. Bilateral PE- 1st episode, hemodynamically stable, saturating well in room air. No dyspnea, no LE DVT. Currently on heparin drip with coumadin- continue heparin drip until INR therapeutic. - She is not immobile. She never had colonoscopy done- Recommended OP colon oscopy for screening for malignancy given unprovoked PE however she is reluctant. 3. Elevated troponin,due to right heart strain from PE- echo reviewed, seen by cardio. 4. H/o gout- continue allopurinol. 5. Hypertension- Continue hydrochlorothiazide, lisinopril and metoprolol succinate. Monitor BP 6. Chronic kidney disease stage III- Cr at baseline, currently 0.8 7. Hypophosphatemia- recheck in am DVT ppx- on heparin drip with coumadin Dispo- Discharge home once INR therapeutic ( Goal 2-3) Admission and Anticipated Discharge Date Admission Date: November 21, 2021 Subjective No new issues. Feels fine and ready to go home. No chest pain, shortness of breath, dizziness. Ambulating in the room without issues. Physical Exam Physical Exam: General: Sitting comfortably in chair, not in distress, on room air HEENT: EOMI, FRANKLIN, MMM Chest: Clear breath sounds bilaterally, no wheezes or crackles CVS: Regular rate and rhythm, normal heart sounds, no murmur Abdomen: Soft, non tender, not distended, normal bowel sounds Neuro: Awake, alert, oriented, conversing well, non focal Extremities: No cyanosis, clubbing, trace chronic edema Intermittent essential tremors noted Results & Data Results & Data ([facility]) Vital Signs (Past 12 Hours) Vital Signs Temp Pulse Pulse Pulse Resp BP Pulse Ox 11/24/21 15:07 68 11/24/21 11:19 36.6 C 77 18 145/72 H 99 11/24/21 08:00 74 11/24/21 07:19 36.6 C 73 19 152/69 H 97 Medications Administered Current Inpatient Medications Acetaminophen (Acetaminophen 325 Mg Tab) 650 mg PO Q4H PRN PRN Reason: Pain or Fever Stop: 12/21/21 21:34 Allopurinol ([facility]ol 100 Mg Tab) [facility] Stop: 12/22/21 08:59 Last Admin: 11/24/21 08:15 Dose: 100 mg Documented by: Gabapentin (Gabapentin 100 Mg Cap) 100 mg PO [facility] Stop: 12/22/21 07:59 Last Admin: 11/24/21 12:42 Dose: 100 mg Documented by: Hydrochlorothiazide (Hydrochlorothiazide 25 Mg Tab) 25 mg PO [facility] Stop: 12/22/21 08:59 Last Admin: 11/24/21 08:15 Dose: 25 mg Documented by: Heparin Sodium/Dextrose (Heparin Sodium/Dextrose) 25,000 units in 500 mls @ 17 mls/hr IV .Q24H [facility]; Protocol Stop: 12/21/21 18:59 Last Titration: 11/24/21 16:50 Dose: 950 units/hr, 19 mls/hr Documented by: Lisinopril (Lisinopril 10 Mg Tab) 30 mg PO DAILY [facility] Stop: 12/22/21 08:59 Last Admin: 11/24/21 08:15 Dose: 30 mg Documented by: Magnesium Oxide (Magnesium Oxide 400 Mg Tab) 400 mg PO [facility] Stop: 12/23/21 14:14 Last Admin: 11/24/21 08:14 Dose: 400 mg Documented by: Metoprolol Succinate (Metoprolol Succ 50mg Ext Rel Tab) 50 mg PO [facility] Stop: 12/22/21 08:59 Last Admin: 11/24/21 08:14 Dose: 50 mg Documented by: Multivitamins/Minerals (Calcium 600mg + Vit D 400 Iu Tab) 1 tab PO [facility] Stop: 12/22/21 08:59 Last Admin: 11/24/21 08:15 Dose: 1 tab Documented by: Nitroglycerin (Nitroglycerin Sl 0.4 Mg/Tab Tab) 0.4 mg SL UD PRN PRN Reason: Chest Pain Stop: 12/21/21 21:34 Polyethylene Glycol (Polyethylene (Miralax) 17 Gm Pack) 17 gm PO DAILY PRN PRN Reason: Constipation Stop: 12/21/21 21:34 Potassium Chloride (Potassium Chloride Pwd 20 Meq Pack) 20 meq PO BID [facility] Stop: 12/23/21 20:59 Last Admin: 11/24/21 08:15 Dose: 20 meq Documented by: Warfarin Sodium (Warfarin Sod 5 Mg Tab) 5 mg PO DAILY@1600 [facility] Stop: 12/23/21 15:59 Last Admin: 11/23/21 16:34 Dose: 5 mg Documented by: (1) Pulmonary emboli Acute cor pulmonale presence: with acute cor pulmonale Chronicity: acute Pulmonary embolism type: other Qualified Code(s): I26.09 - Other pulmonary embolism with acute cor pulmonale
[2021-11-24 16:39] LABS: Partial Thromboplastin Ratio 1.5
[2021-11-24] MEDS: WARFARIN SOD 5 MG TAB PO SCH (16:54)
[2021-11-24] MEDS: POT PHOSPHATE MONOBASIC W/ SOD TAB PO SCH (20:55)
[2021-11-24] MEDS: POTASSIUM CHLORIDE CRTAB 20 MEQ TABCR PO SCH (20:55)
[2021-11-24 23:08] LABS: Partial Thromboplastin Ratio 1.6; Partial Thromboplastin Time 44.7 Seconds (21.0-31.0)
[2021-11-25 05:43] LABS: Hematocrit (blood only) 37.8 % (37-47); Hemoglobin 12.5 g/dL (12.0-16.0); Mean Corpuscular Hemoglobin 30.5 pg (25-34); Mean Corpuscular Hgb Conc 33.1 g/dL (32-36); Mean Corpuscular Volume 92.2 fL (80-100); Mean Platelet Volume 10.3 fL (7.4-10.4); Platelet Count 138 K/uL (130-400); White Blood Count 6.43 K/uL (4.8-10.8)
[2021-11-25 06:07] LABS: BUN Creatinine Ratio 23.9 (10-20); Calcium 8.3 mg/dl (8.5-10.1); Creatinine Clr Calc Pharmacy 47.1 ml/min; Est GFR (African American) 69.9 ml/min; Est GFR (Non-African American) 60.3 ml/min; Magnesium 2.1 mg/dl (1.7-2.4); Phosphorus 2.8 mg/dl (2.5-4.9); Potassium 4.1 mmol/L (3.5-5.1)
[2021-11-25 06:12] LABS: Partial Thromboplastin Ratio 1.7
[2021-11-25 06:50] LABS: Partial Thromboplastin Time 46.9 Seconds (21.0-31.0)
[2021-11-25] MEDS: POT PHOSPHATE MONOBASIC W/ SOD TAB PO SCH (07:47)
[2021-11-25] MEDS: allopurinoL 100 MG TAB PO SCH (07:47)
[2021-11-25] MEDS: MAGNESIUM OXIDE 400 MG TAB PO SCH (07:47)
[2021-11-25] MEDS: POTASSIUM CHLORIDE CRTAB 20 MEQ TABCR PO SCH ×2 (07:47→20:19)
[2021-11-25] MEDS: METOPROLOL SUCC 50MG EXT REL TAB PO SCH (07:48)
[2021-11-25] MEDS: lisinopril 10 MG TAB PO SCH (07:48)
[2021-11-25] MEDS: CALCIUM 600MG + VIT D 400 IU TAB PO SCH (07:48)
[2021-11-25] MEDS: GABAPENTIN 100 MG CAP PO SCH ×3 (07:49→16:32)
[2021-11-25] MEDS: hydroCHLOROthiazide 25 MG TAB PO SCH (07:49)
[2021-11-25] MEDS: HEPARIN SODIUM/DEXTROSE 25,000 UNITS/500 ML BAG IV SCH (07:59)
[2021-11-25] MEDS ORDERED: WARFARIN SOD 5 MG TAB PO ONE ×2 (08:15→16:00)
--- NOTE | 2021-11-25 14:02 | Hospitalist Progress Note ---
Date of Service November 25, 2021 Assessment & Plan (1) Pulmonary emboli: Plan: 85-year-old female presents with syncope 2 times at home and also found to have bilateral extensive pulmonary embolism. CTA chest 11/21 1. Streak and motion compromised examinations. 2. Extensive bilateral pulmonary emboli as above. 3. Foci of subpleural airspace consolidation in the right lower lobe likely represent pulmonary infarcts. Correlate clinically for evidence of a superimposed infectious/inflammatory enteritis. 4. There is no evidence of fracture or malalignment involving the thoracic spine. 5. Mild cardiomegaly. 6. Additional findings as above. US LE- no DVT 1.Syncopal episode- most likely secondary to extensive bilateral pulmonary embolism. 2. Bilateral PE- 1st episode, unprovoked, hemodynamically stable, saturating well in room air. No dyspnea, no LE DVT. Currently on heparin drip with coumadin- continue heparin drip until INR therapeutic. INR still 1 despite 2 days of 5 mg coumadin, will give 10 mg today and check INR in am for dosing tomorrow. - She is not immobile. She never had colonoscopy done- Recommended OP colonoscopy for screening for malignancy given unprovoked PE however she is reluctant. 3. Elevated troponin, due to right heart strain from PE- echo reviewed, seen by cardio. No chest pain. 4. H/o gout- continue allopurinol. 5. Hypertension- Continue hydrochlorothiazide, lisinopril and metoprolol succinate. Monitor BP 6. Chronic kidney disease stage III- Cr at baseline, currently 0.8 7. Hypophosphatemia- resolved. DVT ppx- on heparin drip with coumadin Dispo- Discharge home once INR therapeutic ( Goal 2-3) Admission and Anticipated Discharge Date Admission Date: November 21, 2021 Subjective No new issues. Feels good. No chest pain, shortness of breath, nausea, vomiting. Ambulating independently in room. Feels ready to go home anytime. Physical Exam Physical Exam: General: Sitting comfortably in chair, not in distress, on room air HEENT: EOMI, FRANKLIN, MMM Chest: Clear breath sounds bilaterally, no wheezes or crackles CVS: Regular rate and rhythm, normal heart sounds, no murmur Abdomen: Soft, non tender, not distended, normal bowel sounds Neuro: Awake, alert, oriented, conversing well, non focal Extremities: No cyanosis, clubbing, trace chronic edema Intermittent essential tremors noted Results & Data Results & Data ([facility]) Vital Signs (Past 12 Hours) Vital Signs Temp Pulse Pulse Pulse Resp BP BP 11/25/21 08:00 36.7 C 77 88 16 157/79 H 11/25/21 02:50 36.7 C 80 18 162/81 H Pulse Ox 11/25/21 08:00 95 11/25/21 02:50 94 Laboratory Results Short CBC 11/25/21 Range/Units 05:23 WBC 6.43 (4.8-10.8) K/uL Hgb 12.5 (12.0-16.0) g/dL Hct 37.8 (37-47) % Plt Count 138 (130-400) K/uL BMP 11/25/21 05:23 Sodium 137 Potassium 4.1 Chloride 107 Carbon Dioxide 22 BUN 21 Creatinine 0.88 Glucose 101 H Calcium 8.3 L Medications Administered Current Inpatient Medications Acetaminophen (Acetaminophen 325 Mg Tab) 650 mg PO Q4H PRN PRN Reason: Pain or Fever Stop: 12/21/21 21:34 Allopurinol (Allopurinol 100 Mg Tab) 100 mg PO QAM [facility] Stop: 12/22/21 08:59 Last Admin: 11/25/21 07:47 Dose: 100 mg Documented by: Gabapentin (Gabapentin 100 Mg Cap) 100 mg PO TIDM [facility] Stop: 12/22/21 07:59 Last Admin: 11/25/21 11:35 Dose: 100 mg Documented by: Hydrochlorothiazide (Hydrochlorothiazide 25 Mg Tab) 25 mg PO QAM [facility] Stop: 12/22/21 08:59 Last Admin: 11/25/21 07:49 Dose: 25 mg Documented by: Heparin Sodium/Dextrose (Heparin Sodium/Dextrose) 25,000 units in 500 mls @ 20 mls/hr IV .Q24H [facility]; Protocol Stop: 12/21/21 18:59 Last Admin: 11/25/21 07:59 Dose: 1,000 units/hr, 20 mls/hr Documented by: Lisinopril (Lisinopril 10 Mg Tab) 30 mg PO DAILY [facility] Stop: 12/22/21 08:59 Last Admin: 11/25/21 07:48 Dose: 30 mg Documented by: Magnesium Oxide (Magnesium Oxide 400 Mg Tab) 400 mg PO QAM [facility] Stop: 12/23/21 14:14 Last Admin: 11/25/21 07:47 Dose: 400 mg Documented by: Metoprolol Succinate (Metoprolol Succ 50mg Ext Rel Tab) 50 mg PO QAM [facility] Stop: 12/22/21 08:59 Last Admin: 11/25/21 07:48 Dose: 50 mg Documented by: Multivitamins/Minerals (Calcium 600mg + Vit D 400 Iu Tab) 1 tab PO QAM [facility] Stop: 12/22/21 08:59 Last Admin: 11/25/21 07:48 Dose: 1 tab Documented by: Nitroglycerin (Nitroglycerin Sl 0.4 Mg/Tab Tab) 0.4 mg SL UD PRN PRN Reason: Chest Pain Stop: 12/21/21 21:34 Polyethylene Glycol (Polyethylene (Miralax) 17 Gm Pack) 17 gm PO DAILY PRN PRN Reason: Constipation Stop: 12/21/21 21:34 Potassium Chloride (Potassium Chloride Crtab 20 Meq Tabcr) 20 meq PO BID [facility] Stop: 12/24/21 20:59 Last Admin: 11/25/21 07:47 Dose: 20 meq Documented by: Warfarin Sodium (Warfarin Sod 5 Mg Tab) 5 mg PO DAILY@1600 [facility] Stop: 12/23/21 15:59 Last Admin: 11/24/21 16:54 Dose: 5 mg Documented by: (1) Pulmonary emboli Acute cor pulmonale presence: with acute cor pulmonale Chronicity: acute Pulmonary embolism type: other Qualified Code(s): I26.09 - Other pulmonary embolism with acute cor pulmonale
[2021-11-25] MEDS: WARFARIN SOD 5 MG TAB PO SCH (16:32)
[2021-11-26 07:48] LABS: INR 1.3 (0.9-1.1); Partial Thromboplastin Ratio 2.2
[2021-11-26 07:55] LABS: Partial Thromboplastin Time 60.3 Seconds (21.0-31.0)
[2021-11-26] MEDS: GABAPENTIN 100 MG CAP PO SCH ×3 (08:12→16:44)
[2021-11-26] MEDS: hydroCHLOROthiazide 25 MG TAB PO SCH (08:12)
[2021-11-26] MEDS: METOPROLOL SUCC 50MG EXT REL TAB PO SCH (08:12)
[2021-11-26] MEDS: CALCIUM 600MG + VIT D 400 IU TAB PO SCH (08:12)
[2021-11-26] MEDS: lisinopril 10 MG TAB PO SCH (08:12)
[2021-11-26] MEDS: MAGNESIUM OXIDE 400 MG TAB PO SCH (08:12)
[2021-11-26] MEDS: allopurinoL 100 MG TAB PO SCH (08:12)
[2021-11-26] MEDS: POTASSIUM CHLORIDE CRTAB 20 MEQ TABCR PO SCH ×2 (08:14→19:56)
[2021-11-26] MEDS: HEPARIN SODIUM/DEXTROSE 25,000 UNITS/500 ML BAG IV SCH (08:23)
[2021-11-26] MEDS ORDERED: WARFARIN SOD 5 MG TAB PO ONE (15:35)
--- NOTE | 2021-11-26 15:35 | Hospitalist Progress Note ---
Date of Service November 26, 2021 Assessment & Plan (1) Pulmonary emboli: Plan: 85-year-old female presents with syncope 2 times at home and also found to have bilateral extensive pulmonary embolism. CTA chest 11/21 1. Streak and motion compromised examinations. 2. Extensive bilateral pulmonary emboli as above. 3. Foci of subpleural airspace consolidation in the right lower lobe likely represent pulmonary infarcts. Correlate clinically for evidence of a superimposed infectious/inflammatory enteritis. 4. There is no evidence of fracture or malalignment involving the thoracic spine. 5. Mild cardiomegaly. 6. Additional findings as above. US LE- no DVT 1.Syncopal episode- most likely secondary to extensive bilateral pulmonary embolism. 2. Bilateral PE- 1st episode, unprovoked, hemodynamically stable, saturating well in room air. No dyspnea, no LE DVT. Currently on heparin drip with coumadin- continue heparin drip until INR therapeutic. INR still <1.5 despite 4 days of cuumadin, will give 10 mg today per algorithm and check INR in am for dosing tomorrow. - She is not immobile. She never had colonoscopy done- Recommended OP colonoscopy for screening for malignancy given unprovoked PE however she is reluctant. 3. Elevated troponin, due to right heart strain from PE- echo reviewed, seen by cardio. No chest pain. 4. H/o gout- continue allopurinol. 5. Hypertension- Continue hydrochlorothiazide, lisinopril and metoprolol succinate. Monitor BP 6. Chronic kidney disease stage III- Cr at baseline, currently 0.8 DVT ppx- on heparin drip with coumadin Dispo- Discharge home once INR therapeutic ( Goal 2-3) Admission and Anticipated Discharge Date Admission Date: November 21, 2021 Subjective No new issues. Feels good. No chest pain, shortness of breath, nausea, vomiting. Ambulating independently in room. Feels ready to go home anytime. Physical Exam Physical Exam: General: Sitting comfortably in chair, not in distress, on room air HEENT: EOMI, FRANKLIN, MMM Chest: Clear breath sounds bilaterally, no wheezes or crackles CVS: Regular rate and rhythm, normal heart sounds, no murmur Abdomen: Soft, non tender, not distended, normal bowel sounds Neuro: Awake, alert, oriented, conversing well, non focal Extremities: No cyanosis, clubbing, trace chronic edema Intermittent essential tremors noted Results & Data Results & Data ([facility]) Vital Signs (Past 12 Hours) Vital Signs Temp Pulse Pulse Pulse Resp BP Pulse Ox 11/26/21 15:22 73 11/26/21 11:47 37.2 C 77 21 153/67 H 96 11/26/21 08:00 69 11/26/21 06:41 36.7 C 73 22 134/54 L 96 Laboratory Results Short CBC 11/24/21 11/25/21 11/26/21 Range/Units 05:41 05:23 06:43 INR 1.0 1.0 1.3 H (0.9-1.1) Medications Administered Current Inpatient Medications Acetaminophen (Acetaminophen 325 Mg Tab) 650 mg PO Q4H PRN PRN Reason: Pain or Fever Stop: 12/21/21 21:34 Allopurinol (Allopurinol 100 Mg Tab) 100 mg PO [facility] Stop: 12/22/21 08:59 Last Admin: 11/26/21 08:12 Dose: 100 mg Documented by: Gabapentin (Gabapentin 100 Mg Cap) 100 mg PO [facility] Stop: 12/22/21 07:59 Last Admin: 11/26/21 11:51 Dose: 100 mg Documented by: Hydrochlorothiazide (Hydrochlorothiazide 25 Mg Tab) 25 mg PO [facility] Stop: 12/22/21 08:59 Last Admin: 11/26/21 08:12 Dose: 25 mg Documented by: Heparin Sodium/Dextrose (Heparin Sodium/Dextrose) 25,000 units in 500 mls @ 20 mls/hr IV .Q24H [facility]; Protocol Stop: 12/21/21 18:59 Last Admin: 11/26/21 08:23 Dose: 1,000 units/hr, 20 mls/hr Documented by: Lisinopril (Lisinopril 10 Mg Tab) 30 mg PO DAILY [facility] Stop: 12/22/21 08:59 Last Admin: 11/26/21 08:12 Dose: 30 mg Documented by: Magnesium Oxide (Magnesium Oxide 400 Mg Tab) 400 mg PO [facility] Stop: 12/23/21 14:14 Last Admin: 11/26/21 08:12 Dose: 400 mg Documented by: Metoprolol Succinate (Metoprolol Succ 50mg Ext Rel Tab) 50 mg PO [facility] Stop: 12/22/21 08:59 Last Admin: 11/26/21 08:12 Dose: 50 mg Documented by: Multivitamins/Minerals (Calcium 600mg + Vit D 400 Iu Tab) 1 tab PO QAM [facility] Stop: 12/22/21 08:59 Last Admin: 11/26/21 08:12 Dose: 1 tab Documented by: Nitroglycerin (Nitroglycerin Sl 0.4 Mg/Tab Tab) 0.4 mg SL UD PRN PRN Reason: Chest Pain Stop: 12/21/21 21:34 Polyethylene Glycol (Polyethylene (Miralax) 17 Gm Pack) 17 gm PO DAILY PRN PRN Reason: Constipation Stop: 12/21/21 21:34 Potassium Chloride (Potassium Chloride Crtab 20 Meq Tabcr) 20 meq PO BID [facility] Stop: 12/24/21 20:59 Last Admin: 11/26/21 08:14 Dose: 20 meq Documented by: Warfarin Sodium (Warfarin Sod 5 Mg Tab) 5 mg PO DAILY@1600 [facility] Stop: 12/23/21 15:59 Last Admin: 11/25/21 16:32 Dose: 5 mg Documented by: (1) Pulmonary emboli Acute cor pulmonale presence: with acute cor pulmonale Chronicity: acute Pulmonary embolism type: other Qualified Code(s): I26.09 - Other pulmonary embolism with acute cor pulmonale
[2021-11-26] MEDS: WARFARIN SOD 5 MG TAB PO SCH (16:44)
[2021-11-27 07:26] LABS: Hematocrit (blood only) 39.2 % (37-47); Hemoglobin 12.9 g/dL (12.0-16.0); Mean Corpuscular Hemoglobin 30.6 pg (25-34); Mean Corpuscular Hgb Conc 32.9 g/dL (32-36); Mean Corpuscular Volume 93.1 fL (80-100); Mean Platelet Volume 10.3 fL (7.4-10.4); Platelet Count 159 K/uL (130-400); RDW Coefficient of Variation 14.3 % (11.5-14.5); RDW Standard Deviation 48.7 fL (36.4-46.3); Red Blood Count 4.21 M/uL (4.2-5.4); White Blood Count 5.95 K/uL (4.8-10.8)
[2021-11-27 07:52] LABS: INR 1.9 (0.9-1.1); Partial Thromboplastin Ratio 2.6; Prothrombin Time 19.9 Seconds (9.0-12.0)
[2021-11-27 07:54] LABS: BUN Creatinine Ratio 23.3 (10-20); Creatinine Clr Calc Pharmacy 46.1 ml/min; Est GFR (African American) 68.1 ml/min; Est GFR (Non-African American) 58.7 ml/min; Potassium 4.2 mmol/L (3.5-5.1)
[2021-11-27 07:56] LABS: Partial Thromboplastin Time 72.1 Seconds (21.0-31.0)
[2021-11-27] MEDS: HEPARIN SODIUM/DEXTROSE 25,000 UNITS/500 ML BAG IV SCH (09:03)
[2021-11-27] MEDS: CALCIUM 600MG + VIT D 400 IU TAB PO SCH (09:04)
[2021-11-27] MEDS: allopurinoL 100 MG TAB PO SCH (09:04)
[2021-11-27] MEDS: POTASSIUM CHLORIDE CRTAB 20 MEQ TABCR PO SCH ×2 (09:04→19:53)
[2021-11-27] MEDS: lisinopril 10 MG TAB PO SCH (09:04)
[2021-11-27] MEDS: hydroCHLOROthiazide 25 MG TAB PO SCH (09:05)
[2021-11-27] MEDS: MAGNESIUM OXIDE 400 MG TAB PO SCH (09:05)
[2021-11-27] MEDS: METOPROLOL SUCC 50MG EXT REL TAB PO SCH (09:05)
[2021-11-27] MEDS: GABAPENTIN 100 MG CAP PO SCH ×3 (09:06→17:10)
--- NOTE | 2021-11-27 10:50 | Hospitalist Progress Note ---
Date of Service November 27, 2021 Assessment & Plan (1) Pulmonary emboli: Plan: 85-year-old female presents with syncope 2 times at home and also found to have bilateral extensive pulmonary embolism. CTA chest 11/21 1. Streak and motion compromised examinations. 2. Extensive bilateral pulmonary emboli as above. 3. Foci of subpleural airspace consolidation in the right lower lobe likely represent pulmonary infarcts. Correlate clinically for evidence of a superimposed infectious/inflammatory enteritis. 4. There is no evidence of fracture or malalignment involving the thoracic spine. 5. Mild cardiomegaly. 6. Additional findings as above. US LE- no DVT 1.Syncopal episode- most likely secondary to extensive bilateral pulmonary embolism. 2. Bilateral PE- 1st episode, unprovoked, hemodynamically stable, saturating well in room air. No dyspnea, no LE DVT. Currently on heparin drip with coumadin- continue heparin drip until INR therapeutic. INR still <1.5 despite 4 days of cuumadin, will give 10 mg today per algorithm and check INR in am for dosing tomorrow. - She is not immobile. She never had colonoscopy done- Recommended OP colonoscopy for screening for malignancy given unprovoked PE however she is reluctant. 3. Elevated troponin, due to right heart strain from PE- echo reviewed, seen by cardio. No chest pain. 4. H/o gout- continue allopurinol. 5. Hypertension- Continue hydrochlorothiazide, lisinopril and metoprolol succinate. Monitor BP 6. Chronic kidney disease stage III- Cr at baseline, currently 0.8 DVT ppx- on heparin drip with coumadin Will plan to transition to Lovenox. PT/OT assessments requested. Dispo- Discharge home once INR therapeutic ( Goal 2-3) for two day consecutively. Shae Reddy DO [facility] Hospitalist Admission and Anticipated Discharge Date Admission Date: November 21, 2021 Subjective 85 yo F admitted after syncopal episode, found to have PE. Ambulated well in the hallways. Will transition to Lovenox PT/OT ordered. No chest pain, SOB with exertion or other issues at this time. Review of Systems Review of Systems: All systems were reviewed and negative except as indicated on subjective above. Physical Exam Physical Exam: CONSTITUTIONAL: WNWD, vitals as above, generally well- appearing, NAD EYES: normal conjunctivae, ENT: external ear and nose normal, MMM NECK: trachea midline, RESPIRATORY: clear to auscultation bilaterally, no crackles, rales or wheezes, normal respiratory effort CARDIOVASCULAR: regular rate and rhythm, S1 and 2 heard without murmurs, gallops or rubs, no JVD, no peripheral edema, CHEST: inspection of chest was normal GASTROINTESTINAL: soft, nontender, ND, no guarding MUSCULOSKELETAL: strength 5/5 throughout, head is normocephalic and atraumatic, SKIN: warm and dry, NEUROLOGIC: CN 2-12 grossly intact, no sensory deficit, normal cognition, normal speech, +resting tremor PSYCHIATRIC: alert cooperative and oriented to person, place and time. Euthymic mood, makes good eye contact, language grossly intact, recent and remote memory grossly intact. Results & Data Results & Data ([facility]) Vital Signs (Past 12 Hours) Vital Signs Temp Pulse Pulse Resp BP Pulse Ox 11/27/21 07:06 36.7 C 78 20 143/75 H 96 11/27/21 03:27 36.6 C 68 22 116/77 97 11/26/21 23:32 74 11/26/21 23:13 36.6 C 77 18 132/67 96 Laboratory Results Short CBC 11/27/21 Range/Units 06:53 WBC 5.95 (4.8-10.8) K/uL Hgb 12.9 (12.0-16.0) g/dL Hct 39.2 (37-47) % Plt Count 159 (130-400) K/uL BMP 11/27/21 06:53 Sodium 136 Potassium 4.2 Chloride 104 Carbon Dioxide 25 BUN 21 Creatinine 0.90 Glucose 107 H Calcium 9.0 Medications Administered Current Inpatient Medications Acetaminophen (Acetaminophen 325 Mg Tab) 650 mg PO Q4H PRN PRN Reason: Pain or Fever Stop: 12/21/21 21:34 Allopurinol (Allopurinol 100 Mg Tab) [facility] [place] Stop: 12/22/21 08:59 Last Admin: 11/27/21 09:04 Dose: 100 mg Documented by: Gabapentin (Gabapentin 100 Mg Cap) 100 mg PO TIDM [facility] Stop: 12/22/21 07:59 Last Admin: 11/27/21 09:06 Dose: 100 mg Documented by: Hydrochlorothiazide (Hydrochlorothiazide 25 Mg Tab) 25 [facility] [place] [place] Stop: 12/22/21 08:59 Last Admin: 11/27/21 09:05 Dose: 25 mg Documented by: Heparin Sodium/Dextrose (Heparin Sodium/Dextrose) 25,000 units in 500 mls @ 20 mls/hr IV .Q24H [facility]; Protocol Stop: 12/21/21 18:59 Last Admin: 11/27/21 09:03 Dose: 950 units/hr, 19 mls/hr Documented by: Lisinopril (Lisinopril 10 Mg Tab) 30 mg PO DAILY [facility] Stop: 12/22/21 08:59 Last Admin: 11/27/21 09:04 Dose: 30 mg Documented by: Magnesium Oxide (Magnesium Oxide 400 Mg Tab) 400 mg PO [facility] Stop: 12/23/21 14:14 Last Admin: 11/27/21 09:05 Dose: 400 mg Documented by: Metoprolol Succinate (Metoprolol Succ 50mg Ext Rel Tab) 50 mg PO [facility] Stop: 12/22/21 08:59 Last Admin: 11/27/21 09:05 Dose: 50 mg Documented by: Multivitamins/Minerals (Calcium 600mg + Vit D 400 Iu Tab) 1 tab PO [facility] Stop: 12/22/21 08:59 Last Admin: 11/27/21 09:04 Dose: 1 tab Documented by: Nitroglycerin (Nitroglycerin Sl 0.4 Mg/Tab Tab) 0.4 mg SL UD PRN PRN Reason: Chest Pain Stop: 12/21/21 21:34 Polyethylene Glycol (Polyethylene (Miralax) 17 Gm Pack) 17 gm PO DAILY PRN PRN Reason: Constipation Stop: 12/21/21 21:34 Potassium Chloride (Potassium Chloride Crtab 20 Meq Tabcr) 20 meq PO BID [facility] Stop: 12/24/21 20:59 Last Admin: 11/27/21 09:04 Dose: 20 meq Documented by: Warfarin Sodium (Warfarin Sod 7.5 Mg Tab) 7.5 mg PO DAILY@1600 [facility] Stop: 12/27/21 15:59 (1) Pulmonary emboli Acute cor pulmonale presence: with acute cor pulmonale Chronicity: acute Pulmonary embolism type: other Qualified Code(s): I26.09 - Other pulmonary embolism with acute cor pulmonale
[2021-11-27 15:56] LABS: Partial Thromboplastin Ratio 2.2
[2021-11-27] MEDS ORDERED: WARFARIN SOD 7.5 MG TAB PO SCH (16:00)
[2021-11-27 16:03] LABS: Partial Thromboplastin Time 61.5 Seconds (21.0-31.0)
[2021-11-28 07:05] LABS: INR 2.9 (0.9-1.1)
[2021-11-28 07:08] LABS: Partial Thromboplastin Time 82.6 Seconds (21.0-31.0)
[2021-11-28] MEDS: hydroCHLOROthiazide 25 MG TAB PO SCH (08:03)
[2021-11-28] MEDS: METOPROLOL SUCC 50MG EXT REL TAB PO SCH (08:03)
[2021-11-28] MEDS: CALCIUM 600MG + VIT D 400 IU TAB PO SCH (08:03)
[2021-11-28] MEDS: POTASSIUM CHLORIDE CRTAB 20 MEQ TABCR PO SCH (08:03)
[2021-11-28] MEDS: allopurinoL 100 MG TAB PO SCH (08:03)
[2021-11-28] MEDS: MAGNESIUM OXIDE 400 MG TAB PO SCH (08:04)
[2021-11-28] MEDS: lisinopril 10 MG TAB PO SCH (08:04)
[2021-11-28] MEDS: GABAPENTIN 100 MG CAP PO SCH ×3 (08:04→15:54)
[2021-11-28] MEDS: HEPARIN SODIUM/DEXTROSE 25,000 UNITS/500 ML BAG IV SCH (10:53)
[2021-11-28] MEDS ORDERED: ENOXAPARIN 1 MG/KG SQ SCH (11:15)
[2021-11-28] MEDS ORDERED: ENOXAPARIN 80 MG/0.8 ML SYR SQ SCH (12:00)
[2021-11-28 14:04] LABS: Partial Thromboplastin Ratio 1.7
--- NOTE | 2021-11-28 14:37 | Discharge Summary ---
Date of Service November 28, 2021 Principal Diagnosis Syncope Pulmonary emboli Elevated troponin 2/2 right heart strain from pulmonary emboli Discharge Data Allergies Allergy/AdvReac Type Severity Reaction Status Date / Time No Known Allergies Allergy Verified 11/21/21 18:48 Consultations 11/21/21 19:18 ED Decision to Admit Stat 11/22/21 08:00 Consult Cardiology Routine Ordered Studies 11/21/21 17:10 CT angio chest PE protocol Stat CT cervical spine wo con Stat CT head/brain wo con Stat CT thoracic spine wo con Stat 11/21/21 21:35 US venous doppler LE BI Routine Hospital Course (1) Pulmonary emboli: 85-year-old female presents with syncope 2 times at home and also found to have bilateral extensive pulmonary embolism. CTA chest 11/21 1. Streak and motion compromised examinations. 2. Extensive bilateral pulmonary emboli as above. 3. Foci of subpleural airspace consolidation in the right lower lobe likely represent pulmonary infarcts. Correlate clinically for evidence of a superimposed infectious/inflammatory enteritis. 4. There is no evidence of fracture or malalignment involving the thoracic spine. 5. Mild cardiomegaly. 6. Additional findings as above. US LE- no DVT 1.Syncopal episode- most likely secondary to extensive bilateral pulmonary embolism. 2. Bilateral PE- 1st episode, unprovoked, hemodynamically stable, saturating well in room air. No dyspnea, no LE DVT. Currently on heparin drip with coumadin- continue heparin drip until INR therapeutic. INR still <1.5 despite 4 days of cuumadin, will give 10 mg today per algorithm and check INR in am for dosing tomorrow. - She is not immobile. She never had colonoscopy done- Recommended OP colonoscopy for screening for malignancy given unprovoked PE however she is reluctant. 3. Elevated troponin, due to right heart strain from PE- echo reviewed, seen by cardio. No chest pain. 4. H/o gout- continue allopurinol. 5. Hypertension- Continue hydrochlorothiazide, lisinopril and metoprolol succinate. Monitor BP 6. Chronic kidney disease stage III- Cr at baseline, currently 0.8 DVT ppx- on heparin drip with coumadin Dispo- Discharge home once INR therapeutic ( Goal 2-3) Discharge Plan Discharge Items Patient Disposition: Home - Home Health Services Reason For Visit: SYNCOPE Discharge Diagnosis: Syncope Pulmonary emboli Elevated troponin 2/2 right heart strain from pulmonary emboli Condition on Discharge: Good Activity: Resume your previous activity Non-emergency contact: Primary Care Provider Call non-emergency contact if: you have any medication questions, your symptoms worsen, your pain is not controlled, your pain is worsening, your pain is unusual for you and your pain is concerning for you Follow-up/Referrals: [facility] ([facility]) [Other] (The [facility] (also called [facility]) will be calling you to set you up for Coumadin dose management.) Glenn Keith MD [Primary Care Provider] - (Date & Time 12/05/2021 2:00 BLANCAroluis carlos [facility] ) Diet: Heart Healthy Addtl Attending Provider Instructions: Please take all medications as instructed on discharge list below. You have been started on warfarin which should be taken every day. Therapeutic levels of warfarin are monitored through INR (blood test) and should be between 2 and 3. On discharge day (11/28) your INR was 2.9. Please continue taking this and the bridging therapy (Lovenox injections) until your INR is 2-3 for two consecutive days. Once that is the case, you may stop the injections. The home health agency should come to your house on 11/29 to draw your INR. Results should be sent to your PCP, Dr. Glenn goode for review. You should hear from him regarding your therapeutic level by Wed. If you don't please contact him at the office for guidance. Please use caution or avoid non-steroidal anti-inflammatory agents such as Motrin, Ibuprofen, Aleve, Naproxen, etc. These are blood thinners and can increase your risk of bleeding if taken together with warfarin. Many things including leafy green vegetables, antibiotics and other drugs can influence your INR level. You will be asked to join a short instructional session with a [facility] pharmacist to learn more about how this medication works. This should take place within the next 1-2 weeks. Please follow-up with your primary care physician at the date and time above. This will be important to ensure you have been bridged appropriately, and are doing well since your hospital discharge. Further investigation into possible causes of this blood clot will be explored at this time. A referral to Hematology may also be considered. It was a pleasure taking care of you! Please call if you have any questions or problems. You can reach a [facility] hospitalist on duty at [facility] 24 hours a day by calling [phone]. Take care of yourself. Shae Reddy DO [facility] Hospitalist Pending Studies at Discharge: No Stand-Alone Forms: My [facility], Smoking Cessation Medications and DC Order Prescriptions: New enoxaparin [Lovenox] 80 mg/0.8 mL Syringe 80 mg subcut Q12H Qty: 8 RF: 0 warfarin 5 mg Tablet 5 mg PO DAILY@1600 Qty: 30 RF: 0 Continued metoprolol succinate 50 mg tablet extended release 24 hr 50 mg PO QAM RF: 0 alendronate 70 mg tablet 70 mg PO WK RF: 0 allopurinol 100 mg tablet 100 mg PO QAM RF: 0 lisinopril 30 mg tablet 30 mg PO DAILY RF: 0 hydrochlorothiazide 25 mg tablet 25 mg PO QAM RF: 0 gabapentin 100 mg capsule 100 mg PO TIDM RF: 0 calcium carbonate-vitamin D3 [Calcium 600 + D(3)] 600 mg-10 mcg (400 unit) Tablet 1 tab PO QAM RF: 0 Discharge Orders: Discharge Order (Routine); Ordered 11/28/21 Ordered By: Shae Reddy Admission Data Admit Date/Time: 11/21/21 20:34 Attending Provider: Shae Reddy Admit Provider: Sascha Arcos Primary Care Provider: Glenn Keith Other Providers: Sascha Arcos ; Sheng Tirado ; Yannick Lundberg ; Osbaldo Anne ; Dave Cortez ; Stephen Ramirez ; Juanjose Severino ; Vandana Rivera ; Bernie Vivar ; Vivien Perez ; Phu Rendon ; [place],[facility]
[2021-11-28] MEDS ORDERED: WARFARIN SOD 5 MG TAB PO SCH (16:00)
== END 2021-11-28 17:50 | disposition home health service (06) | DRG 175 ==
LOC: ED 16:50 → 2E 20:34 → SUATTDRO 20:34 → 2E 21:02

== ENCOUNTER 2025-01-22 08:55 | Inpatient (IN) ==
[2025-01-22 10:08] LABS: Hematocrit (blood only) 34.0 % (37.0-47.0); Hemoglobin 11.2 g/dl (12.0-16.0); Immature Granulocytes # (auto) 0.02 K/uL (0.01-0.20); Immature Granulocytes % (auto) 0.4 %; Mean Corpuscular Hemoglobin 29.6 pg (25.0-34.0); Mean Corpuscular Volume 89.9 fL (80.0-100.0); Platelet Count 201 K/uL (130-400); RDW Standard Deviation 48.7 fL (36.4-46.3); Red Blood Count 3.78 M/uL (4.20-5.40); White Blood Count 5.04 K/ul (4.8-10.8)
[2025-01-22 10:29] LABS: INR 3.7 (0.9-1.1); Partial Thromboplastin Time 46 Seconds (21-31); Prothrombin Time 36.1 Seconds (9.0-12.0)
[2025-01-22 10:32] LABS: Alanine Aminotransferase 9 U/L (7-52); Albumin Globulin Ratio 1.8 (0.9-2); Alkaline Phosphatase 59 U/L (34-104); Anion Gap 6 (3-11); Bilirubin,Total 1.1 mg/dl (0.2-1.0); Blood Urea Nitrogen 15 mg/dl (6-23); Calcium 9.1 mg/dl (8.6-10.3); Carbon Dioxide 31 mmol/L (21-32); Chloride 106 mmol/L (98-107); Globulin 2.1 gm/dl (2.5-4.0); Glucose 106 mg/dl (70-99(Fasting)); Potassium 3.5 mmol/L (3.5-5.1); Sodium 143 mmol/L (136-145); Total Protein 5.8 gm/dl (6.0-8.3)
--- NOTE | 2025-01-22 10:59 | Emergency Department Note ---
Impression & Plan Acute blood loss anemia, Rectal bleeding, Supratherapeutic INR, Generalized weakness ED Provider Note NAME: ALLI PRETTY AGE: 89 SEX: F : 1935 ARRIVES VIA: Walk-In INFORMANT: Patient, ED PROVIDER(S): Luis Alfredo Mayorga MD CHIEF COMPLAINT: Weakness, and GI bleed HPI: This is a 89-year-old female on Coumadin presenting for rectal bleeding/weakness. patient notes a chronic history of small amount of blood in her stool however today she had significant rectal bleeding with blood staining through her underwear, pants and in the toilet bowl. She notes this was painless. She reports no nausea, vomiting, fevers. No abdominal pain with this. She reports no previous history of colonoscopies. Her stools are always loose and watery. ROS: See above HPI for pertinent positives & negatives. A total of 10 systems reviewed and were otherwise negative. PAST MEDICAL HISTORY: See Below PAST SURGICAL HISTORY: See Below FAMILY HISTORY: See Below SOCIAL HISTORY: See Below HOME MEDICATIONS: See Below ALLERGIES: See Below VITALS: See Below PHYSICAL EXAMINATION: General: resting comfortably in no acute distress Head: Normocephalic and atraumatic Eyes: Normal inspection, extraocular muscles intact Ear, nose, throat: Normal external exam Neck: Normal range of motion Respiratory: lungs clear to auscultation bilaterally Cardiovascular: Regular rate/rhythm, no murmur GI: soft, distended, nontender, no guarding or rebound Extremities: nontender, moves all extremities Neuro: The patient awake and alert, appropriately conversive, no focal deficits, symmetric faces Skin: Warm, dry, and intact MEDICAL DECISION MAKING: This is an 89-year-old female presenting for rectal bleed/weakness. Will do screening workup to include basic blood work, hemoglobin, Hemoccult testing. - Bloodwork is reviewed showing no significant leukocytosis, anemia, electrolyte or creatinine abnormality. Hemoglobin only slightly downtrending. INR 3.7. Otherwise electrolytes within normal limits. -Patient is Hemoccult positive on examination with gross blood mixed with stool - Patient has not had previous colonoscopy in her life and she has chronic diarrhea. She discussed with family who feels more comfortable with patient being admitted for colonoscopy and further testing due to active lower GI bleed. -Care discussed with [facility] service via the resident physician Differential diagnosis: Lower GI bleed, bleeding hemorrhoids, upper GI bleed Independent History obtained from: D[facility] interpreted by me: ECG: ECG independently interpreted by me with normal sinus rhythm, rate of 79, normal axis, normal TX, normal QRS, normal QTc, no ST segment elevations consistent with STEMI criteria Cardiac Monitoring: An order was placed for continuous cardiac monitoring. The monitor shows a rate of 51 with sinus rhythm. Past Med/Surg History Problem List (Updated 01/23/25 @ 07:20 by Luis Alfredo Mayorga MD) Chronic anticoagulation History of pulmonary embolism Supratherapeutic INR (Acute) Generalized weakness (Acute) Acute blood loss anemia (Acute) Rectal bleeding (Acute) Tremor Medical History Syncope and collapse Right ventricular dilation Syncope Thrombocytopenia Leukocytosis Elevated troponin Embolism, pulmonary with infarction Pulmonary emboli Hypertension Social History Smoking Status: Never smoker Hx Alcohol Use: No Hx Substance Use: No Preferred Language: Citizen Of [place] Communication Ability: Effective Group Art Supervisor Required: No Beliefs That Will Affect Care: None marital status: Current Living Situation: Family Feels Safe at Home: Yes Assistive Devices: Glasses Allergies Allergies Allergy/AdvReac Type Severity Reaction Status Date / Time No Known Allergies Allergy Verified 11/21/21 18:48 Home Meds Home Medications Medication Instructions Recorded Confirmed alendronate 70 mg tablet 70 mg PO WK 11/21/21 01/22/25 allopurinol 100 mg tablet 100 mg PO M 11/21/21 01/22/25 calcium 600 mg (as 1 tab PO [facility] 11/21/21 01/22/25 carbonate)-vitamin D3 10 mcg (400 unit) tablet (Calcium 600 + D(3)) gabapentin 100 mg capsule 100 mg PO TIDM 11/21/21 01/22/25 hydrochlorothiazide 25 mg tablet 25 mg PO QAM 11/21/21 01/22/25 lisinopril 30 mg tablet 30 mg PO QAM 11/21/21 01/22/25 metoprolol succinate 50 mg 50 mg PO QA 11/21/21 01/22/25 tablet,extended release 24 hr warfarin 5 mg tablet 2.5 - 5 mg PO DAILY 01/22/25 01/22/25 Results & Data (ED) Vital Signs Vital Signs - 24 hr 01/22/25 09:05 01/22/25 10:00 01/22/25 10:04 Temperature 36.4 C L Temperature Source Temporal Artery Scan Pulse Rate 87 69 76 Pulse Rate from SpO2 Sensor 70 Respiratory Rate 18 19 Respiratory Effort / Characteristics Non-Labored Spontaneous Respiratory Depth Normal Blood Pressure 154/85 H 171/92 H Blood Pressure Mean 108 118 Pulse Oximetry 95 93 Oxygen Delivery Method Room Air Sepsis Recent Fever Within 48 Hours No Sepsis New/Unexplained Change in Mental Status No Sepsis Action Taken by Nursing No Action Required 01/22/25 10:33 Temperature Temperature Source Pulse Rate 65 Pulse Rate from SpO2 Sensor 65 Respiratory Rate 15 Respiratory Effort / Characteristics Respiratory Depth Blood Pressure 158/84 H Blood Pressure Mean 108 Pulse Oximetry 95 Oxygen Delivery Method Sepsis Recent Fever Within 48 Hours Sepsis New/Unexplained Change in Mental Status Sepsis Action Taken by Nursing Laboratory Data 01/23/25 05:52 01/22/25 09:38 Lab Results 01/22/25 Range/Units 09:38 WBC 5.04 (4.8-10.8) K/ul RBC 3.78 L (4.20-5.40) M/uL Hgb 11.2 L (12.0-16.0) g/dl Hct 34.0 L (37.0-47.0) % MCV 89.9 (80.0-100.0) fL MCH 29.6 (25.0-34.0) pg MCHC 32.9 (32.0-36.0) g/dL RDW Std Deviation 48.7 H (36.4-46.3) fL RDW Coeff of Jesus 14.7 H (11.5-14.5) % Plt Count 201 (130-400) K/uL MPV 10.7 (9.4-12.4) fL Immature Gran % (Auto) 0.4 % Neut % (Auto) 68.1 % Lymph % (Auto) 19.4 % Coal % (Auto) 8.5 % Eos % (Auto) 2.8 % Baso % (Auto) 0.8 % Neut # (Auto) 3.43 (1.40-6.50) K/uL Lymph # (Auto) 0.98 L (1.20-3.40) K/uL Coal # (Auto) 0.43 (0.11-0.59) K/uL Eos # (Auto) 0.14 (0.00-0.50) K/uL Baso # (Auto) 0.04 (0.00-0.20) K/uL Immature Gran # (Auto) 0.02 (0.01-0.20) K/uL PT 36.1 H (9.0-12.0) Seconds INR 3.7 H (0.9-1.1) APTT 46 H (21-31) Seconds PTT Ratio 1.7 Sodium 143 (136-145) mmol/L Potassium 3.5 (3.5-5.1) mmol/L Chloride 106 (98-107) mmol/L Carbon Dioxide 31 (21-32) mmol/L Anion Gap 6 (3-11) BUN 15 (6-23) mg/dl Creatinine 0.91 (0.6-1.2) mg/dl Est Cr Clr Drug Dosing Not Reportable eGFR 60.68 BUN/Creatinine Ratio 16.5 (10-20) Glucose 106 H (70-99(Fasting)) mg/dl Calcium 9.1 (8.6-10.3) mg/dl Total Bilirubin 1.1 H (0.2-1.0) mg/dl AST 15 (13-39) U/L ALT 9 (7-52) U/L Alkaline Phosphatase 59 (34-104) U/L Total Protein 5.8 L (6.0-8.3) gm/dl Albumin 3.7 (3.4-5.0) gm/dl Globulin 2.1 L (2.5-4.0) gm/dl Albumin/Globulin Ratio 1.8 (0.9-2) Blood Type O Positive Antibody Screen NEGATIVE Administered Medications Gabapentin (Gabapentin 100 Mg Cap) 100 mg PO TIDM [facility] Stop: 02/21/25 16:59 Last Admin: 01/22/25 17:14 Dose: 100 mg Documented By: KTS Hydroxyzine HCl (Hydroxyzine Hcl 10 Mg Tab) 10 mg PO QID PRN PRN Reason: Anxiety Stop: 02/21/25 20:40 Last Admin: 01/22/25 22:54 Dose: 10 mg Documented By: ARIAN Discontinued Medications Metoprolol Tartrate (Metoprolol Tartrate 1 Mg/Ml Vial) 2.5 mg IV NOW STA Stop: 01/22/25 20:42 Last Admin: 01/22/25 21:14 Dose: 2.5 mg Documented By: ARIAN Phytonadione (Phytonadione 5 Mg Tab) 2.5 mg PO NOW STA Stop: 01/22/25 15:45 Last Admin: 01/22/25 17:14 Dose: 2.5 mg Documented By: ARNOLD Polyethylene Glycol/Electrolytes (Lavage Solution 4000ml) 8 dose PO TODAY@0300,1800 [facility] Stop: 01/23/25 06:00 Last Admin: 01/23/25 03:04 Dose: 8 dose Documented By: Admin: 01/22/25 18:12 Dose: 8 dose Documented By: ARNOLD Discharge Plan Visit Data Chief Complaint: Rectal Bleed Stated Complaint: RECTAL BLEEDING ED Provider: Luis Alfredo Mayorga Discharge Problem: Acute blood loss anemia, Rectal bleeding, Supratherapeutic INR, Generalized weakness Patient Disposition: Admitted As Inpatient Condition: Fair Discharge Instructions Interventions: ED Discharge Assessment Last Done: 01/22/25 14:23
--- NOTE | 2025-01-22 11:07 | Electrocardiogram Report ---
Test Reason : Blood Pressure : */* mmHG Vent. Rate : 79 BPM Atrial Rate : 79 BPM P-R Int : 192 ms QRS Dur : 82 ms QT Int : 372 ms P-R-T Axes : -13 -11 -16 degrees QTcB Int : 426 ms Normal sinus rhythm Inferior infarct , age undetermined Abnormal ECG When compared with ECG of 23-Nov-2021 05:49, Inferior infarct is now Present T wave inversion less evident in Anterolateral leads QT has shortened Confirmed by River Juarez ([id number]) on 01/22/2025 11:07:11 AM Referred By: Confirmed By: River Juarez
--- NOTE | 2025-01-22 11:30 | History & Physical Report ---
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 #Rectal bleeding #Acute blood loss anemia #Supratherapeutic INR Hgb 11.2 on admission -No sx of active rectal bleeding on exam INR 3.7 on admission FOBT + Hold Coumadin Clear liquid diet for now Follow H/H trend Q8H Appreciate GI consult -Will keep NPO after MN for ? scope in AM -No prior colonoscopy per pt or [facility] OP records Repeat PT/INR in AM -Will hold off on vit K reversal for now given absence of active bleeding, nontoxic appearance on exam #Generalized weakness Likely 2/2 above Obtain PT/OT evals, fall precautions #HTN Hold HCTZ for now while on clears Continue BB, lisinopril w/ hold parameters #Gout Continue allopurinol #Essential tremor Continue gabapentin DVT Prophylaxis: SCDs/TEDs only for now 2/2 above Disposition: Admit to med/tele Patient seen in collaboration with Dr. Lara. Please see addendum. I spent a total of 60 minutes coordinating, documenting, and providing care for this patient excluding time spent in the performance of separately billed services or time spent by another provider/QHP. This included personally reviewing all current laboratories and imaging studies, medical reconciliation, outpatient chart review and discussion with specialists. This chart was completed in part utilizing Speech Voice Recognition Software. Grammatical errors, random word insertions, pronoun errors, and incomplete sentences are an occasional consequence of this system due to software limitations, ambient noise, and hardware issues. Any formal questions or concerns about the content, text, or information contained within the body of this dictation should be directly addressed to the provider for clarification. History of Present Illness Chief Complaint: Rectal bleeding, generalized weakness Primary Care Provider: Glenn Keith MD Patient is an 89-year-old female with past medical history significant for HLD, venous insufficiency, HTN, varicose veins of both lower extremities, age-related osteoporosis, essential tremor, SNHL of both ears, history of unprovoked bilateral pulmonary emboli chronically anticoagulated on Coumadin and other problems as outlined in her chart who presented to the ED with complaints of rectal bleeding and generalized weakness. History obtained from the patient, patient's daughter at bedside, discussion with ED provider and associated chart review. Has reportedly been experiencing intermittent bouts of trace rectal bleeding for the past several months. However, this morning, her she noticed her briefs were soaked in bright red blood. Upon further evaluation in her bathroom, she noticed some oozing of bright red blood from her rectum which has not happened before. When she had episodes of rectal bleeding previously, it was only a few spots here and there in her briefs. On Coumadin for history of bilateral PE. Last dose of Coumadin was yesterday afternoon, 01/21/25 - dose of 5mg. INR 2.6 on 12/22/24. Denies any abdominal pain or N/V. Reports appetite has been good. Also admits to feeling weaker over the past few days. No lightheadedness or dizziness upon standing. No recent falls or injuries. Lives with her daughter, [place]. [facility]. Patient denies ever having a colonscopy before. Patient does not recall any history of internal and/or external hemorrhoids. No smoking history. Rare alcohol use. Allergies Allergy/AdvReac Type Severity Reaction Status Date / Time No Known Allergies Allergy Verified 11/21/21 18:48 Home Medications Medication Instructions Recorded Confirmed Type alendronate 70 mg tablet 70 mg PO WK 11/21/21 01/22/25 History allopurinol 100 mg tablet 100 mg PO QAM 11/21/21 01/22/25 History calcium 600 mg (as 1 tab PO QA 11/21/21 01/22/25 History carbonate)-vitamin D3 10 mcg (400 unit) tablet (Calcium 600 + D(3)) gabapentin 100 mg capsule 100 mg PO TIDM 11/21/21 01/22/25 History hydrochlorothiazide 25 mg tablet 25 mg PO QAM 11/21/21 01/22/25 History lisinopril 30 mg tablet 30 mg PO QA 11/21/21 01/22/25 History metoprolol succinate 50 mg 50 mg PO QAM 11/21/21 01/22/25 History tablet,extended release 24 hr warfarin 5 mg tablet 2.5 - 5 mg PO DAILY 01/22/25 01/22/25 History Past Med/Surg History Problem List (Updated 01/22/25 @ 12:54 by Pam Aparicio PA-C) Chronic anticoagulation History of pulmonary embolism Supratherapeutic INR Generalized weakness Acute blood loss anemia Rectal bleeding Tremor Medical History Syncope and collapse Right ventricular dilation Syncope Thrombocytopenia Leukocytosis Elevated troponin Embolism, pulmonary with infarction Pulmonary emboli Hypertension Social History Smoking Status: Never smoker Hx Alcohol Use: No Hx Substance Use: No Preferred Language: Russian Communication Ability: Effective Electronic News Gathering Editor Required: No Beliefs That Will Affect Care: None marital status: Current Living Situation: Family Feels Safe at Home: Yes Assistive Devices: None Review of Systems Review of Systems: At least ten systems reviewed and negative, except as noted in the HPI. Physical Exam Physical Exam: General: WD/WN, NAD, sitting up in bed, A&Ox3, very pleasant, daughter at bedside HEENT: Normocephalic, atraumatic, moist mucous membranes Respiratory: Normal respiratory effort, CTAB Cardiovascular: RRR, no BLE edema (BLE compression stockings in place) Abdomen/GI: Active bowel sounds, soft/nondistended, nontender to palpation in all quadrants Extremities/MSK: No cyanosis or clubbing, extremities motor strength intact, moves all extremities Neurologic: No overt focal deficits, CN's II-XI not formally tested but appear grossly intact bilaterally Results & Data Results & Data Vital Signs (Past 12 Hours) Vital Signs Temp Pulse Resp BP Pulse Ox O2 Del Method 01/22/25 10:04 76 01/22/25 09:05 36.4 C L 87 18 154/85 H 95 Room Air Laboratory Results Short CBC 01/22/25 Range/Units 09:38 WBC 5.04 (4.8-10.8) K/ul Hgb 11.2 L (12.0-16.0) g/dl Hct 34.0 L (37.0-47.0) % Plt Count 201 (130-400) K/uL BMP 01/22/25 09:38 Sodium 143 Potassium 3.5 Chloride 106 Carbon Dioxide 31 BUN 15 Creatinine 0.91 Glucose 106 H Calcium 9.1 Liver Function 01/22/25 Range/Units 09:38 Total Bilirubin 1.1 H (0.2-1.0) mg/dl AST 15 (13-39) U/L ALT 9 (7-52) U/L Alkaline Phosphatase 59 (34-104) U/L Albumin 3.7 (3.4-5.0) gm/dl Code Status & VTE Plan Code Status FULL CODE - As per direct discussion with the patient at bedside in the ED. Supervising Physician Co-Signing Physician Notes Patient seen and examined at bedside. Daughter present at bedside. Patient had bright red blood per rectum this morning, significant. Clots present as well. Has been getting worse past few days, chronic as well over past few months but not like this. Feels asymptomatic otherwise. On exam, well appearing, not pale, good cap refill. Hgb with slight Hgb drop. No BUN elevation. Patient with acute on chronic likely lower GI bleed. Consideration for diverticular disease, hemorrhoids, malignancy, less likely but possible upper GI bleed. Trend Hgb, GI consult appreciate recs. Clear liquid diet for now for consideration of bowel prep and potential scope tomorrow. 2 IV sites requested for access. I have seen and discussed the case with the collaborating advanced practitioner. I agree with the above H&P. I have reviewed and confirmed the patients medical history, the findings on physical examination, and the patients diagnosis and treatment plan with Markus LOPEZ and agree with the information documented. I spent a total of 30 minutes coordinating, documenting, and providing care for this patient excluding time spent in the performance of separately billed services. All of the aforementioned completed outside of collaborating with the assigned advanced practitioner for a full treatment plan. I have reviewed the advanced practitioner's documentation, and I agree with, and take responsibility for the plan of care
--- NOTE | 2025-01-22 14:23 | Gastrointestinal Consultation ---
Date of Consultation January 22, 2025 Assessment & Plan (1) Acute blood loss anemia: (2) Rectal bleeding: Plan [id number] with h/o chronic anticoagulation with warfarin for h/o PE is seen today for rectal bleeding. (1) Hematochezia - Chronic. Mild anemia - Mild anemia with Hgb 11.2 Baseline Hgb 12-13. INR 3.7 - Give Vitamin K 2.5mg now. - Check INR and CBC in AM. - Continue clear liquids today. Start Golytely. NPO after midnight with plans for Colonoscopy tomorrow. Orders placed. - Further recommendations to come with colonoscopy results. Supervising Physician Co-Signing Physician Notes Patient with complaints of some bleeding maybe times months. She has some difficulty with recall. Now the bleeding is more profuse. She is now admitted with rectal bleeding and anemia and weakness. Hemoglobin actually not bad at 11.2. Platelets are normal at 201. She does have a supratherapeutic INR at 3.7. She tells me her Coumadin or warfarin is for history of pulmonary emboli back in 2021. No previous colonoscopy. Denies abdominal pain. Abdomen relatively benign. Rectal examination does not show obvious prolapsed hemorrhoids or blood around the perianal area. Reviewed with patient with no previous colonoscopy ideally we would prep her colon and do a full exam. Polyps or neoplasia would be on the differential based on this presentation. Hemorrhoidal bleeding should also be considered. Because of the potential need for endoscopic intervention if a bleeding polyp or AVM I think we should correct her INR somewhat. Will give her small dose of oral vitamin K 2.5 mg. Patient states she will try to drink GoLytely. If this fails we could proceed with an enema only examination. Plan for tomorrow. History of Present Illness Reason for Consultation: Rectal bleeding on Coumadin Requesting Physician: Pam Busch PAC History of Present Illness Patient is an 89-year-old female with past medical history significant for HLD, venous insufficiency, HTN, varicose veins of both lower extremities, age-related osteoporosis, essential tremor, SNHL of both ears, history of unprovoked bilateral pulmonary emboli chronically anticoagulated on Coumadin is seen today in ER for GI bleed. She reported to the rectal bleeding/weakness to ER. Patient reports that she has small amount of blood in her stool however today she had significant rectal bleeding with blood staining through her underwear, pants and in the toilet bowl. She reports no nausea, vomiting, fevers. No abdominal pain with this. She reports no previous history of colonoscopies. Her stools are always loose and watery. Hospitalist notes Hgb 11.2 on admission -No sx of active rectal bleeding on exam INR 3.7 on admission. FOBT +. Coumadin placed on hold. -Will keep NPO after MN for ? scope in AM -No prior colonoscopy per pt or [facility] records. Repeat PT/INR in AM -Will hold off on vit K reversal for now given absence of active bleeding, nontoxic appearance on exam CBC Hgb11.2 g/dl Hct 34%, Plt 201k/ul, WBC 5.04 k/ul MCV 89 CMP Glucose 106, BUN 15, Cr 0.91, Cl 106, CO2 31, Na 143, K 3.5. T Bili 1.1, AST 19, ALT 9, Alk Phos 59, Albumin 3.7. INR 3.7. Allergies Allergy/AdvReac Type Severity Reaction Status Date / Time No Known Allergies Allergy Verified 11/21/21 18:48 Home Medications Medication Instructions Recorded Confirmed Type alendronate 70 mg tablet 70 mg PO WK 11/21/21 01/22/25 History allopurinol 100 mg tablet 100 mg PO QAM 11/21/21 01/22/25 History calcium 600 mg (as 1 tab PO QAM 11/21/21 01/22/25 History carbonate)-vitamin D3 10 mcg (400 unit) tablet (Calcium 600 + D(3)) gabapentin 100 mg capsule 100 mg PO TIDM 11/21/21 01/22/25 History hydrochlorothiazide 25 mg tablet 25 mg PO QAM 11/21/21 01/22/25 History lisinopril 30 mg tablet 30 mg PO QAM 11/21/21 01/22/25 History metoprolol succinate 50 mg 50 mg PO QAM 11/21/21 01/22/25 History tablet,extended release 24 hr warfarin 5 mg tablet 2.5 - 5 mg PO DAILY 01/22/25 01/22/25 History Patient History Medical History Syncope and collapse Right ventricular dilation Syncope Thrombocytopenia Leukocytosis Elevated troponin Embolism, pulmonary with infarction Pulmonary emboli Hypertension Social History Smoking Status: Never smoker Hx Alcohol Use: No Hx Substance Use: No Preferred Language: Malian Communication Ability: Effective Car Distributor Required: No Beliefs That Will Affect Care: None marital status: Current Living Situation: Family Feels Safe at Home: Yes Assistive Devices: None Review of Systems Review of Systems: See HPI Physical Exam Physical Exam: Assessed with Dr. Suarez. Gen: Alert. Answering questions appropriately. NAD Abdomen: soft non-tender. Rectal: No significant protruding hemorrhoids or fissures appreciated on exernal exam Results & Data Vital Signs (Past 12 Hours) Vital Signs Temp Pulse Pulse Resp BP BP Pulse Ox 01/22/25 14:15 64 22 191/102 H 99 01/22/25 12:32 74 18 142/99 H 94 01/22/25 12:16 63 13 195/84 H 99 01/22/25 10:33 65 15 158/84 H 95 01/22/25 10:04 76 01/22/25 10:00 69 19 171/92 H 93 01/22/25 09:05 97.5 F L 87 18 154/85 H 95 O2 Del Method 01/22/25 14:15 Room Air 01/22/25 12:32 Room Air 01/22/25 12:16 Room Air 01/22/25 10:33 01/22/25 10:04 01/22/25 10:00 01/22/25 09:05 Room Air PG Care Time/CCT Total # of Minutes Spent Total Time Spent with Patient: Total time spent is greater than 50% in coordination of care (as documented) at patient's floor/unit and/or counseling patient: Coding Level of Care Code 72869 IN/OBS CONSULT LVL 3,45M Diagnoses Acute blood loss anemia D62 Rectal bleeding K62.5
[2025-01-22] MEDS ORDERED: MAGNESIUM HYDROXIDE SUSP 30 ML UDC PO PRN (14:50)
[2025-01-22] MEDS ORDERED: POLYETHYLENE (MIRALAX) 17 GM PACK PO PRN (14:50)
[2025-01-22] MEDS ORDERED: ONDANSETRON INJ 2 MG/ML 2 ML VIAL IV PRN (14:50)
[2025-01-22] MEDS ORDERED: ACETAMINOPHEN 325 MG TAB PO PRN (14:50)
[2025-01-22] MEDS: GABAPENTIN 100 MG CAP PO SCH (17:14)
[2025-01-22] MEDS: PHYTONADIONE 5 MG TAB PO STA (17:14)
[2025-01-22] MEDS: LAVAGE SOLUTION 4000ML PO SCH (18:12)
[2025-01-22 19:23] LABS: Hematocrit (blood only) 37.5 % (37.0-47.0); Hemoglobin 12.4 g/dl (12.0-16.0)
[2025-01-22] MEDS: METOPROLOL TARTRATE 1 MG/ML VIAL IV STA (21:14)
[2025-01-23 01:51] LABS: Hematocrit (blood only) 32.7 % (37.0-47.0); Hemoglobin 10.7 g/dl (12.0-16.0)
[2025-01-23 06:19] LABS: Hematocrit (blood only) 33.4 % (37.0-47.0); Hemoglobin 11.0 g/dl (12.0-16.0); Immature Granulocytes # (auto) 0.01 K/uL (0.01-0.20); Immature Granulocytes % (auto) 0.2 %; Mean Corpuscular Hemoglobin 29.4 pg (25.0-34.0); Mean Corpuscular Volume 89.3 fL (80.0-100.0); Platelet Count 181 K/uL (130-400); RDW Standard Deviation 47.9 fL (36.4-46.3); Red Blood Count 3.74 M/uL (4.20-5.40); White Blood Count 4.89 K/ul (4.8-10.8)
[2025-01-23 07:49] LABS: Anion Gap 8.0 (3-11); Bilirubin,Total 1.6 mg/dl (0.2-1.0); Calcium 8.7 mg/dl (8.6-10.3); Carbon Dioxide 27.0 mmol/L (21-32); Chloride 107.0 mmol/L (98-107); Magnesium 1.8 mg/dl (1.7-2.4); Potassium 3.4 mmol/L (3.5-5.1); Sodium 142.0 mmol/L (136-145)
[2025-01-23 07:55] LABS: Alanine Aminotransferase 8.0 U/L (7-52); Albumin Globulin Ratio 1.9 (0.9-2); Alkaline Phosphatase 56.0 U/L (34-104); Blood Urea Nitrogen 11.0 mg/dl (6-23); Creatinine Clr Calc Pharmacy 44.6 ml/min; Globulin 1.9 gm/dl (2.5-4.0); Glucose 75.0 mg/dl (70-99(Fasting)); Total Protein 5.5 gm/dl (6.0-8.3)
[2025-01-23] MEDS: CALCIUM 600MG + VIT D 400 IU TAB PO SCH (09:29)
[2025-01-23] MEDS: METOPROLOL SUCC 50MG EXT REL TAB PO SCH (09:29)
--- NOTE | 2025-01-23 09:33 | History & Physical Bridge Note ---
Date of Service January 23, 2025 History & Physical Bridge Note I have examined the patient, reviewed the History & Physical and in the interval since the performance of the History & Physical I have noted the following changes of clinical significance: no changes noted Patient reports she's doing well. She had about 5-6 BMs that were clear without prep. No issues with prep. NPO. Plan to proceed with colonoscopy as scheduled. Supervising Physician Co-Signing Physician Notes Patient seems in did okay with her prep. INR 2.8 which is okay for diagnostic and/or mucosal biopsies. Colonoscopy today.
[2025-01-23 10:10] LABS: Hematocrit (blood only) 35.9 % (37.0-47.0); Hemoglobin 12.2 g/dl (12.0-16.0)
[2025-01-23 10:35] LABS: INR 2.8 (0.9-1.1); Prothrombin Time 27.8 Seconds (9.0-12.0)
--- NOTE | 2025-01-23 10:46 | Hospitalist Progress Note ---
Date of Service January 23, 2025 Assessment & Plan (1) Rectal bleeding: (2) Acute blood loss anemia: (3) Supratherapeutic INR: (4) Generalized weakness: (5) History of pulmonary embolism: (6) Chronic anticoagulation: Plan Patient is an 89-year-old female with past medical history significant for HLD, venous insufficiency, HTN, varicose veins of both lower extremities, age-related osteoporosis, essential tremor, SNHL of both ears, history of unprovoked bilateral pulmonary emboli chronically anticoagulated on Coumadin and other problems as outlined in her chart who presented to the ED with complaints of rectal bleeding and generalized weakness. #Rectal bleeding #Acute blood loss anemia #Supratherapeutic INR Hgb 11.2 on admission; stable since admission INR 3.7 on admission > 2.8 FOBT + Hold Coumadin Clear liquid diet for now Plan for colonoscopy today. #Generalized weakness Likely 2/2 above will Obtain PT/OT evals, fall precautions #HTN Hold HCTZ for now while on clears Continue BB, lisinopril w/ hold parameters #Gout Continue allopurinol #Essential tremor Continue gabapentin DVT Prophylaxis: SCDs/TEDs only for now 2/2 above Disposition: med tele Time spent evaluating patient, direct bedside care, chart review, placing orders, interpretation of diagnostic studies, discussion with consultants, patient, and family members, as well as other required patient management activities is 50 minutes Please note the above document was generated using voice recognition software. It may contain grammatical, syntax or spelling errors. Any formal questions or concerns about the content, text or information contained within the body of this dictation should be directly addressed to the provider for clarification Admission and Anticipated Discharge Date Admission Date: January 22, 2025 Subjective Patient seen and examined at bedside. She is comfortable; not in distress. She denies fever, chills, chest pain, shortness of breath or abdominal discomfort. Review of Systems Review of Systems: All systems reviewed & are unremarkable except as noted in Subjective Physical Exam Physical Exam: General: WD/WN, NAD, sitting up in bed, A&Ox3, very pleasant, daughter at bedside HEENT: Normocephalic, atraumatic, moist mucous membranes Respiratory: Normal respiratory effort, CTAB Cardiovascular: RRR, no BLE edema (BLE compression stockings in place) Abdomen/GI: Active bowel sounds, soft/nondistended, nontender to palpation in all quadrants Extremities/MSK: No cyanosis or clubbing, extremities motor strength intact, moves all extremities Neurologic: No overt focal deficits, CN's II-XI not formally tested but appear g rossly intact bilaterally Results & Data Results & Data Vital Signs (Past 12 Hours) Vital Signs Temp Pulse Pulse Resp BP Pulse Ox O2 Del Method 01/23/25 08:16 66 01/23/25 07:13 36.7 C 76 17 165/77 H 92 Room Air 01/23/25 03:03 36.5 C 51 L 18 149/83 H 100 Room Air 01/22/25 23:03 36.5 C 73 20 100 Room Air
--- NOTE | 2025-01-23 12:07 | Anesthesiology Consultation ---
Date of Service January 23, 2025 Assessment & Plan ASA ASA3 Proposed Anesthesia Anesthesia Type: MAC Risk / Benefits Reviewed With: PT / POA / Parent / Guardian, Accepts Plan and Informed Consent Obtained History Surgery Operation Date: 01/23/25 16:55 Proposed Procedures p Colonoscopy Dr. Erick Suarez MD Height/Weight Height: 4 ft 11 in Weight: 75 kg Allergies Allergy/AdvReac Type Severity Reaction Status Date / Time No Known Allergies Allergy Verified 11/21/21 18:48 Medications Home Medications Medication Instructions Recorded Confirmed Last Taken alendronate 70 mg tablet 70 mg PO WK 11/21/21 01/22/25 11/16/21 allopurinol 100 mg tablet 100 mg PO QAM 11/21/21 01/22/25 11/21/21 calcium 600 mg (as 1 tab PO QAM 11/21/21 01/22/25 11/21/21 carbonate)-vitamin D3 10 mcg (400 unit) tablet (Calcium 600 + D(3)) gabapentin 100 mg capsule 100 mg PO TIDM 11/21/21 01/22/25 11/21/21 08:00 hydrochlorothiazide 25 mg tablet 25 mg PO QAM 11/21/21 01/22/25 11/21/21 lisinopril 30 mg tablet 30 mg PO QAM 11/21/21 01/22/25 11/21/21 metoprolol succinate 50 mg 50 mg PO QAM 11/21/21 01/22/25 11/21/21 tablet,extended release 24 hr warfarin 5 mg tablet 2.5 - 5 mg PO DAILY 01/22/25 01/22/25 Unknown Active Medications Generic Name Dose Route Start Last Admin Trade Name Stevenq PRN Reason Stop Dose Admin Allopurinol 100 mg 01/23/25 09:00 01/23/25 09:29 Allopurinol 100 Mg Tab PO 02/22/25 08:59 100 mg QAM EDNA Administration Calcium/Vitamin D 1 tab 01/23/25 09:00 01/23/25 09:29 Calcium 600mg + Vit D 400 Iu Tab PO 02/22/25 08:59 1 tab QAM EDNA Administration Gabapentin 100 mg 01/22/25 17:00 01/23/25 09:29 Gabapentin 100 Mg Cap PO 02/21/25 16:59 100 mg TIDM EDNA Administration Hydroxyzine HCl 10 mg 01/22/25 20:41 01/22/25 22:54 Hydroxyzine Hcl 10 Mg Tab PO 02/21/25 20:40 10 mg QID PRN Administration Anxiety Lisinopril 30 mg 01/23/25 09:00 01/23/25 09:29 Lisinopril 10 Mg Tab PO 02/22/25 08:59 30 mg QAM EDNA Administration Metoprolol Succinate 50 mg 01/23/25 09:00 01/23/25 09:29 Metoprolol Succ 50mg Ext Rel Tab PO 02/22/25 08:59 50 mg QAM EDNA Administration NPO Date Last Intake of Fluids: 01/23/25 Time Last Intake of Fluids: 09:30 Last Intake of Fluids Comment: sips with meds Date Last Intake of Solids: 01/22/25 Time Last Intake of Solids: 16:00 Past Medical History Medical History Syncope and collapse Right ventricular dilation Syncope Thrombocytopenia Leukocytosis Elevated troponin Embolism, pulmonary with infarction Pulmonary emboli Hypertension Exercise / Class Metabolic Activity II 4-5 Yardwork/Stairs/Walk up hill Past Anesthesia History No Hx of Anesthesia Complications and No Family Hx of Anesthesia Complications History of PONV No Hx of PONV and No Hx of Motion Sickness Social History Smoking Status: Never smoker Hx Alcohol Use: No Hx Substance Use: No Physical Exam Vital Signs Last Vital Signs Temp 36.6 C 01/23/25 11:42 Pulse 73 01/23/25 11:42 Resp 16 01/23/25 11:42 BP 162/91 H 01/23/25 11:42 Pulse Ox 97 01/23/25 11:42 O2 Del Method Room Air 01/23/25 11:42 Constitutional no acute distress ENMT Mouth: no dentition abnormality Thyromental Distance: > or= 3.5 Finger Breadths Mallampati Class: II Neck normal visual inspection Respiratory normal respiratory effort; no respiratory distress Auscultation: lungs clear to auscultation bilaterally Cardiovascular Rate/Rhythm: regular rate and regular rhythm Heart Sounds: no murmur Musculoskeletal Spine: normal cervical ROM Psychiatric Orientation: alert and oriented x 3 Testing Laboratory Results 01/23/25 09:40 01/23/25 05:52 PT 27.8 Seconds (9.0-12.0) H 01/23/25 09:40 INR 2.8 (0.9-1.1) H 01/23/25 09:40 APTT 46 Seconds (21-31) H 01/22/25 09:38 Blood Type O Positive 01/22/25 09:38 Antibody Screen NEGATIVE 01/22/25 09:38 01/22/25 09:37 Aerobic Blood Culture - Preliminary Blood No growth in Aerobic bottle after 24 hours. Anaerobic Blood Culture - Preliminary No growth in Anaerobic bottle after 24 hours. Day of Procedure Evaluation. Date of Surgery January 23, 2025 Height/Weight Height: 4 ft 11 in Weight: 75 kg Vital Signs Last Vital Signs Temp 36.6 C 01/23/25 11:42 Pulse 73 01/23/25 11:42 Resp 16 01/23/25 11:42 BP 162/91 H 01/23/25 11:42 Pulse Ox 97 01/23/25 11:42 O2 Del Method Room Air 01/23/25 11:42 Allergies Allergy/AdvReac Type Severity Reaction Status Date / Time No Known Allergies Allergy Verified 11/21/21 18:48 Medications Home Medications Medication Instructions Recorded Confirmed Last Taken alendronate 70 mg tablet 70 mg PO WK 11/21/21 01/22/25 11/16/21 allopurinol 100 mg tablet 100 mg PO REPLACED BY [facility] 11/21/21 01/22/25 11/21/21 calcium 600 mg (as 1 tab PO REPLACED BY [facility] 11/21/21 01/22/25 11/21/21 carbonate)-vitamin D3 10 mcg (400 unit) tablet (Calcium 600 + D(3)) gabapentin 100 mg capsule 100 mg PO TIDM 11/21/21 01/22/25 11/21/21 08:00 hydrochlorothiazide 25 mg tablet 25 mg PO REPLACED BY [facility] 11/21/21 01/22/25 11/21/21 lisinopril 30 mg tablet 30 mg PO REPLACED BY [facility] 11/21/21 01/22/25 11/21/21 metoprolol succinate 50 mg 50 mg PO REPLACED BY [facility] 11/21/21 01/22/25 11/21/21 tablet,extended release 24 hr warfarin 5 mg tablet 2.5 - 5 mg PO DAILY 01/22/25 01/22/25 Unknown Active Medications Generic Name Dose Route Start Last Admin Trade Name Freq PRN Reason Stop Dose Admin Allopurinol 100 mg 01/23/25 09:00 01/23/25 09:29 Allopurinol 100 Mg Tab PO 02/22/25 08:59 100 mg QAM EDNA Administration Calcium/Vitamin D 1 tab 01/23/25 09:00 01/23/25 09:29 Calcium 600mg + Vit D 400 Iu Tab PO 02/22/25 08:59 1 tab QAM EDNA Administration Gabapentin 100 mg 01/22/25 17:00 01/23/25 09:29 Gabapentin 100 Mg Cap PO 02/21/25 16:59 100 mg TIDM EDNA Administration Hydroxyzine HCl 10 mg 01/22/25 20:41 01/22/25 22:54 Hydroxyzine Hcl 10 Mg Tab PO 02/21/25 20:40 10 mg QID PRN Administration Anxiety Lisinopril 30 mg 01/23/25 09:00 01/23/25 09:29 Lisinopril 10 Mg Tab PO 02/22/25 08:59 30 mg QAM EDNA Administration Metoprolol Succinate 50 mg 01/23/25 09:00 01/23/25 09:29 Metoprolol Succ 50mg Ext Rel Tab PO 02/22/25 08:59 50 mg QAM EDNA Administration Past Anesthesia History No Hx of Anesthesia Complications and No Family Hx of Anesthesia Complications History of PONV No Hx of PONV and No Hx of Motion Sickness NPO Date Last Intake of Fluids: 01/23/25 Time Last Intake of Fluids: 09:30 Last Intake of Fluids Comment: sips with meds Date Last Intake of Solids: 01/22/25 Time Last Intake of Solids: 16:00 Home Medications Home Medications Medication Instructions Recorded Confirmed Last Taken alendronate 70 mg tablet 70 mg PO WK 11/21/21 01/22/25 11/16/21 allopurinol 100 mg tablet 100 mg PO QAM 11/21/21 01/22/25 11/21/21 calcium 600 mg (as 1 tab PO QAM 11/21/21 01/22/25 11/21/21 carbonate)-vitamin D3 10 mcg (400 unit) tablet (Calcium 600 + D(3)) gabapentin 100 mg capsule 100 mg PO TIDM 11/21/21 01/22/25 11/21/21 08:00 hydrochlorothiazide 25 mg tablet 25 mg PO QAM 11/21/21 01/22/25 11/21/21 lisinopril 30 mg tablet 30 mg PO QAM 11/21/21 01/22/25 11/21/21 metoprolol succinate 50 mg 50 mg PO QAM 11/21/21 01/22/25 11/21/21 tablet,extended release 24 hr warfarin 5 mg tablet 2.5 - 5 mg PO DAILY 01/22/25 01/22/25 Unknown Active Medications Generic Name Dose Route Start Last Admin Trade Name Stevenq PRN Reason Stop Dose Admin Allopurinol 100 mg 01/23/25 09:00 01/23/25 09:29 Allopurinol 100 Mg Tab PO 02/22/25 08:59 100 mg QAM EDNA Administration Calcium/Vitamin D 1 tab 01/23/25 09:00 01/23/25 09:29 Calcium 600mg + Vit D 400 Iu Tab PO 02/22/25 08:59 1 tab QAM EDNA Administration Gabapentin 100 mg 01/22/25 17:00 01/23/25 09:29 Gabapentin 100 Mg Cap PO 02/21/25 16:59 100 mg TIDM EDNA Administration Hydroxyzine HCl 10 mg 01/22/25 20:41 01/22/25 22:54 Hydroxyzine Hcl 10 Mg Tab PO 02/21/25 20:40 10 mg QID PRN Administration Anxiety Lisinopril 30 mg 01/23/25 09:00 01/23/25 09:29 Lisinopril 10 Mg Tab PO 02/22/25 08:59 30 mg QAM EDNA Administration Metoprolol Succinate 50 mg 01/23/25 09:00 01/23/25 09:29 Metoprolol Succ 50mg Ext Rel Tab PO 02/22/25 08:59 50 mg QAM EDNA Administration Exercise / Class Metabolic Activity Metabolic Activity: II 4-5 Yardwork/Stairs/Walk up hill Physical Exam Constitutional: no acute distress Mouth: no dentition abnormality Thyromental Distance: > or= 3.5 Finger Breadths Mallampati Class: II Neck: + visual inspection normal Respiratory: + respiratory effort normal and + clear to auscultation bilaterally; no respiratory distress Cardiovascular: + regular rate and + regular rhythm; no murmur Musculoskeletal: no limited cervical ROM Psychiatric: + alert and + oriented x 3 ASA ASA3 Proposed Anesthesia Proposed Anesthesia: MAC Risk / Benefits Reviewed With: PT / POA / Parent / Guardian, Accepts Plan and Informed Consent Obtained
--- NOTE | 2025-01-23 13:27 | Communication Note ---
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 Patient is INR is 2.8. Not really candidate for resection at 89. Await biopsies. Ask heme-onc to see. review anticoagulation and discuss treatment options. Likely have continued ongoing bleeding with anticoagulation. Patient however has a history of pulmonary emboli and now has a neoplasm.
--- NOTE | 2025-01-23 13:45 | GI REPORT ---
[facility] Patient: ALLI PRETTY : 1935 Sex at : Female Age: 89 Years Procedure: Colonoscopy Date: 01/23/2025 Attending Physician: Dario Suarez MD Referring MD: Deandre Barboza Md Indications: - Rectal bleeding, elevated INR Medications: - Monitored Anesthesia Care Complications: - No immediate complications. Estimated Blood Loss: - Estimated blood loss was minimal. Procedure: - The Adult Colonoscope was introduced through the anus and advanced to the terminal ileum, with identification of the appendiceal orifice and ileocecal valve. - The colonoscopy was performed without difficulty. - The quality of the bowel preparation was fair. Findings: - The digital rectal exam findings include palpable rectal mass. 7 cm from the anal verge - An ulcerated non-obstructing medium-sized mass was found in the mid rectum. The mass was partially circumferential (involving one-third of the lumen circumference). Oozing was present. Biopsies were taken with a cold forceps for histology. Impression: - Preparation of the colon was fair. - Palpable rectal mass found on digital rectal exam. 7 cm from the anal verge - Likely malignant tumor in the mid rectum. Biopsied. Recommendation: - Await pathology results. - Not a good candidate for resection. I would ask hematology oncology to see if discussed treatment options. Also should address need for ongoing anticoagulation as this lesion is likely to continue to bleed. Procedure Code(s): - 14561, Colonoscopy, flexible; with biopsy, single or multiple Diagnosis Code(s): - K62.89, Other specified diseases of anus and rectum - D49.0, Neoplasm of unspecified behavior of digestive system CPT(R) - 2023 copyright [employer]. All Rights Reserved. The CPT codes, CCI edits and ICD codes generated are intended as suggestions and were generated based on input data. These codes are preliminary and upon milk of lime slaker review may be revised to meet current compliance and payer requirements. The provider is responsible for the final determination of appropriate codes, and modifiers. Dario Suarez MD This document has been electronically signed. Note Initiated:01/23/2025 Note Completed:01/23/2025 1:44 PM [id number]
--- NOTE | 2025-01-23 14:47 | Oncology Consultation ---
Date of Consultation January 23, 2025 Assessment & Plan (1) Rectal mass: Plan -likely rectal cancer. Recommend CT CAP for full staging. Await pathology results. Options for treatment include palliative RT which will help with symptomatic relief or Concurrent chemoradiation with xeloda if she has no evidence of metastatic disease. Palliative care evaluation would also be beneficial for goals of care discussion -Can continue with coumadin as long as H/H remains stable.Goal with INR should be 2-2.5. Could switch to prophylactic anticoagulation if she has significant bleeding/ drop in H/H. History of Present Illness Reason for Consultation: Rectal mass Attending Physician: Deandre Barboza MD History of Present Illness 89 year old female with h/o bilateral PE on coumadin who presented with hematochezia. Colonoscopy revealed rectal mass Allergies Allergy/AdvReac Type Severity Reaction Status Date / Time No Known Allergies Allergy Verified 11/21/21 18:48 Home Medications Medication Instructions Recorded Confirmed Type alendronate 70 mg tablet 70 mg PO WK 11/21/21 01/22/25 History allopurinol 100 mg tablet 100 mg PO QAM 11/21/21 01/22/25 History calcium 600 mg (as 1 tab PO QAM 11/21/21 01/22/25 History carbonate)-vitamin D3 10 mcg (400 unit) tablet (Calcium 600 + D(3)) gabapentin 100 mg capsule 100 mg PO TIDM 11/21/21 01/22/25 History hydrochlorothiazide 25 mg tablet 25 mg PO QAM 11/21/21 01/22/25 History lisinopril 30 mg tablet 30 mg PO QAM 11/21/21 01/22/25 History metoprolol succinate 50 mg 50 mg PO QAM 11/21/21 01/22/25 History tablet,extended release 24 hr warfarin 5 mg tablet 2.5 - 5 mg PO DAILY 01/22/25 01/22/25 History Patient History Medical History Syncope and collapse Right ventricular dilation Syncope Thrombocytopenia Leukocytosis Elevated troponin Embolism, pulmonary with infarction Pulmonary emboli Hypertension Social History Smoking Status: Never smoker Hx Alcohol Use: No Hx Substance Use: No Preferred Language: Mongolian Communication Ability: Effective Material Lister Required: No Beliefs That Will Affect Care: None marital status: Current Living Situation: Family Feels Safe at Home: Yes Assistive Devices: Cane Results & Data Vital Signs (Past 12 Hours) Vital Signs Temp Pulse Pulse Resp BP BP Pulse Ox 01/23/25 14:00 56 L 18 168/63 H 99 01/23/25 13:45 60 18 135/70 99 01/23/25 13:28 66 18 151/89 H 99 01/23/25 11:42 36.6 C 73 16 162/91 H 97 01/23/25 11:11 36.6 C 77 18 148/73 H 97 01/23/25 08:16 66 01/23/25 07:13 36.7 C 76 17 165/77 H 92 01/23/25 03:03 36.5 C 51 L 18 149/83 H 100 O2 Del Method 01/23/25 14:00 Room Air 01/23/25 13:45 Room Air 01/23/25 13:28 Room Air 01/23/25 11:42 Room Air 01/23/25 11:11 Room Air 01/23/25 08:16 01/23/25 07:13 Room Air 01/23/25 03:03 Room Air
[2025-01-23] MEDS: PROPOFOL IV EMULSION 10 MG/ML 20 ML VIAL IV ONE (14:48)
[2025-01-23] MEDS: LIDOCAINE 2% 2 ML VIAL/AMP(20MG/ML) INFIL ONE (14:48)
--- NOTE | 2025-01-23 14:51 | Anesthesiology Progress Note ---
Date of Service January 23, 2025 Anesthesia Post Procedure Vital Signs Vital Signs: Temp Pulse Pulse Pulse Resp BP BP 01/23/25 14:00 56 L 18 168/63 H 01/23/25 13:45 60 18 135/70 01/23/25 13:28 66 18 151/89 H 01/23/25 11:42 36.6 C 73 16 162/91 H 01/23/25 11:11 36.6 C 77 18 148/73 H 01/23/25 08:16 66 01/23/25 07:13 36.7 C 76 17 01/23/25 03:03 36.5 C 51 L 18 01/22/25 23:03 36.5 C 73 20 01/22/25 21:38 69 01/22/25 21:14 92 H 153/92 H 01/22/25 19:58 36.5 C 71 21 01/22/25 17:09 01/22/25 16:58 36.4 C L 64 BP Pulse Ox O2 Del Method 01/23/25 14:00 99 Room Air 01/23/25 13:45 99 Room Air 01/23/25 13:28 99 Room Air 01/23/25 11:42 97 Room Air 01/23/25 11:11 97 Room Air 01/23/25 08:16 01/23/25 07:13 165/77 H 92 Room Air 01/23/25 03:03 149/83 H 100 Room Air 01/22/25 23:03 100 Room Air 01/22/25 21:38 01/22/25 21:14 01/22/25 19:58 184/94 H 96 Room Air 01/22/25 17:09 Room Air 01/22/25 16:58 173/82 H 99 Room Air Transfer of Care Handoff Completed per policy Notes Mental Status: alert / awake / arousable and participated in evaluation Nausea / Vomiting: adequately controlled Pain: adequately controlled Airway Patency, RR, SpO2: stable & adequate BP & HR: stable & adequate Hydration State: stable & adequate Anesthetic Complications: no major complications apparent and Pt Satisfied with anesthetic care
[2025-01-23] MEDS: PHYTONADIONE 5 MG TAB PO STA (15:20)
[2025-01-24 08:16] LABS: Hematocrit (blood only) 36.5 % (37.0-47.0); Hemoglobin 11.6 g/dl (12.0-16.0); Immature Granulocytes # (auto) 0.01 K/uL (0.01-0.20); Immature Granulocytes % (auto) 0.2 %; Mean Corpuscular Hemoglobin 29.1 pg (25.0-34.0); Mean Corpuscular Volume 91.5 fL (80.0-100.0); Platelet Count 210 K/uL (130-400); RDW Standard Deviation 48.1 fL (36.4-46.3); Red Blood Count 3.99 M/uL (4.20-5.40); White Blood Count 4.73 K/ul (4.8-10.8)
[2025-01-24 08:50] LABS: INR 1.8 (0.9-1.1); Prothrombin Time 18.6 Seconds (9.0-12.0)
[2025-01-24 08:54] LABS: Anion Gap 7.0 (3-11); Blood Urea Nitrogen 11.0 mg/dl (6-23); Calcium 8.8 mg/dl (8.6-10.3); Carbon Dioxide 29.0 mmol/L (21-32); Chloride 106.0 mmol/L (98-107); Creatinine Clr Calc Pharmacy 39.4 ml/min; Glucose 86.0 mg/dl (70-99(Fasting)); Potassium 3.9 mmol/L (3.5-5.1); Sodium 142.0 mmol/L (136-145)
[2025-01-24] MEDS: OPTIRAY 320 100ml IV ONE (10:23)
--- NOTE | 2025-01-24 11:16 | CT Scan Report ---
Clinical history: Rectal mass. Rule out metastatic disease Technique: Axial computed tomography images were obtained of the chest without intravenous contrast Comparison is made to the prior CT dated 11/21/2021 Findings: There is mild subsegmental atelectasis in both lower lobes. There is an unchanged 6 mm triangular opacity along the anterior right middle lobe, likely benign. There is an unchanged small 1-2 mm right upper lobe nodule. There is no pleural effusion or pneumothorax. There is no sign of pulmonary fibrosis or other diffuse interstitial process. No endobronchial lesion is seen There is no mediastinal, hilar, or axillary adenopathy. The thoracic aorta is of normal caliber. There is no pericardial effusion. There is coronary atherosclerosis No fracture is seen. No focal osseous lesion is evident Impression: 1. Unchanged small right lung nodules, benign given the long-term stability 2. Mild bilateral lung base atelectasis Electronically signed by Isaiah Alexandre 01-24-2025 11:13 AM
--- NOTE | 2025-01-24 11:18 | CT Scan Report ---
Clinical History: Rectal mass. Rule out metastatic disease Technique: Axial computed tomography images were obtained of the abdomen and pelvis after the administration of intravenous contrast. No prior CT is available for comparison. Findings: The liver is overall of normal size, attenuation, and contour with no sign of cirrhosis or significant fatty infiltration. No liver mass lesion is seen. The portal vein is patent. There are several small gallstones. There is no definite sign of acute cholecystitis. No bile duct dilatation is noted. The spleen is of normal size. No focal splenic lesion is evident. The pancreas appears normal with no sign of acute or chronic pancreatitis and no mass lesion noted. The pancreatic duct is of normal caliber. The adrenal glands appear unremarkable. No definite renal or proximal ureteral calculi are seen on this contrast-enhanced study. There is no hydronephrosis or perinephric stranding. No renal mass lesion is identified. The aorta is of normal caliber. No abdominal adenopathy is seen. There is a small umbilical hernia containing only fat. The stomach appears normal. There is a duodenal diverticulum adjacent to the pancreatic head. There is no sign of small bowel obstruction. There is mild diverticulosis without evidence of diverticulitis. No free intraperitoneal fluid or air is identified. No distal ureteral or bladder calculi are seen. The bladder is decompressed. The iliac arteries are of normal caliber. No pelvic adenopathy is noted. The uterus has been removed. There is suspected mild rectal wall thickening Lumbar degenerative disc disease is seen. There is grade 1 anterolisthesis at L3-4 and retrolisthesis at L1-2. There is mild scoliosis. No fracture is identified. No focal osseous lesion is seen Impression: 1. Apparent mild rectal wall thickening, which may be due to the known rectal mass 2. No definite sign of metastatic disease 3. Cholelithiasis without evidence of acute cholecystitis 4. Mild diverticulosis without evidence of diverticulitis Electronically signed by Isaiah Alexandre 01-24-2025 11:18 AM
--- NOTE | 2025-01-24 11:29 | Hospitalist Progress Note ---
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 Rectal bleeding Rectal Mass #Acute blood loss anemia #Supratherapeutic INR Patient presented with bright red blood per rectum Underwent colonoscopy on 01/23fo to have an ulcerated nonobstructing ring medium-sized mass in the mid rectum; oozing present. Biopsies taken. Hemoglobin of 11.2 on admission; stable. Oncology consulted; CT chest and abdomen/pelvis ordered for full staging. Pathology results are awaiting. Plan to follow-up with oncology as outpatient I discussed with patient's daughters and patient regarding anticoagulation; given that her PE was in November 2021; given her recent rectal bleeding episode on Coumadin which was supratheraputic- we discussed further options( full dose anticoagulation vs prophylactic dosing); based on the discussion; plan to place her on Eliquis 2.5 mg prophylactic dose at the time of the discharge. #Generalized weakness Likely 2/2 above PT/OT eval #HTN -continue home hctz, b-madison and lisinopril #Gout Continue allopurinol #Essential tremor Continue gabapentin DVT Prophylaxis: SCDs/TEDs only for now Disposition: med tele Time spent evaluating patient, direct bedside care, chart review, placing orders, interpretation of diagnostic studies, discussion with consultants, patient, and family members, as well as other required patient management activities is 50 minutes Please note the above document was generated using voice recognition software. It may contain grammatical, syntax or spelling errors. Any formal questions or concerns about the content, text or information contained within the body of this dictation should be directly addressed to the provider for clarification Admission and Anticipated Discharge Date Admission Date: January 22, 2025 Subjective Patient seen and examined at bedside. She is sitting up on the bed comfortably; denies pain and discomfort. Her daughter also at bedside. Review of Systems Review of Systems: All systems reviewed & are unremarkable except as noted in Subjective Physical Exam Physical Exam: General: WD/WN, NAD, sitting up in bed, A&Ox3, very pleasant, daughter at bedside HEENT: Normocephalic, atraumatic, moist mucous membranes Respiratory: Normal respiratory effort, CTAB Cardiovascular: RRR, no BLE edema (BLE compression stockings in place) Abdomen/GI: Active bowel sounds, soft/nondistended, nontender to palpation in all quadrants Extremities/MSK: No cyanosis or clubbing, extremities motor strength intact, moves all extremities Neurologic: No overt focal deficits, CN's II-XI not formally tested but appear grossly intact bilaterally Results & Data Results & Data Vital Signs (Past 12 Hours) Vital Signs Temp Pulse Resp BP Pulse Ox O2 Del Method 01/24/25 07:40 36.4 C L 85 18 175/87 H 96 Room Air 01/24/25 04:31 36.6 C 71 18 150/80 H 94 Room Air 01/24/25 00:05 36.3 C L 67 16 116/70 98 Room Air
[2025-01-24] MEDS: hydroCHLOROthiazide 25 MG TAB PO SCH (12:27)
[2025-01-25 08:02] LABS: Hematocrit (blood only) 36.6 % (37.0-47.0); Hemoglobin 11.6 g/dl (12.0-16.0); Immature Granulocytes # (auto) 0.01 K/uL (0.01-0.20); Immature Granulocytes % (auto) 0.2 %; Mean Corpuscular Hemoglobin 29.5 pg (25.0-34.0); Mean Corpuscular Volume 93.1 fL (80.0-100.0); Platelet Count 240 K/uL (130-400); RDW Standard Deviation 49.1 fL (36.4-46.3); Red Blood Count 3.93 M/uL (4.20-5.40); White Blood Count 5.22 K/ul (4.8-10.8)
[2025-01-25 08:23] LABS: Anion Gap 7.0 (3-11); Blood Urea Nitrogen 18.0 mg/dl (6-23); Calcium 8.7 mg/dl (8.6-10.3); Carbon Dioxide 29.0 mmol/L (21-32); Chloride 105.0 mmol/L (98-107); Creatinine Clr Calc Pharmacy 35.6 ml/min; Glucose 114.0 mg/dl (70-99(Fasting)); Potassium 3.6 mmol/L (3.5-5.1); Sodium 141.0 mmol/L (136-145)
[2025-01-25 08:30] LABS: INR 1.3 (0.9-1.1); Prothrombin Time 13.7 Seconds (9.0-12.0)
--- NOTE | 2025-01-25 08:43 | Hospitalist Progress Note ---
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 Rectal bleeding Rectal Mass #Acute blood loss anemia #Supratherapeutic INR Patient presented with bright red blood per rectum Underwent colonoscopy on 01/23found to have an ulcerated nonobstructing ring medium-sized mass in the mid rectum; oozing present. Biopsies taken. Hemoglobin of 11.2 on admission; stable. CT chest, abdomen and pelvis done to evaluate for metastatic disease; no definitive sign of metastatic disease. Will start on heparin subcu as DVT prophylaxis and monitor for recurrence of rectal bleed. Based on discussion with patient and family; plan to place her on Eliquis 2.5 mg at the time of the discharge as prophylactic dosing if patient tolerates subcu heparin without significant bleeding. Discussed with oncology on 01/25 over [place] text; plan to follow-up with [facility] with possible referral to radiation oncology. #Generalized weakness Likely 2/2 above PT/OT eval #HTN -continue home hctz, b-madison and lisinopril #Gout Continue allopurinol #Essential tremor Continue gabapentin DVT Prophylaxis:heparin Disposition: med tele Time spent evaluating patient, direct bedside care, chart review, placing orders, interpretation of diagnostic studies, discussion with consultants, patient, and family members, as well as other required patient management activities is 50 minutes Please note the above document was generated using voice recognition software. It may contain grammatical, syntax or spelling errors. Any formal questions or c oncerns about the content, text or information contained within the body of this dictation should be directly addressed to the provider for clarification Admission and Anticipated Discharge Date Admission Date: January 22, 2025 Subjective Patient seen and examined at bedside. She is comfortable; not in distress. Denies any significant bright red blood per rectum. Review of Systems Review of Systems: All systems reviewed & are unremarkable except as noted in Subjective Physical Exam Physical Exam: General: WD/WN, NAD, sitting up in bed, A&Ox3, very pleasant, daughter at bedside HEENT: Normocephalic, atraumatic, moist mucous membranes Respiratory: Normal respiratory effort, CTAB Cardiovascular: RRR, no BLE edema (BLE compression stockings in place) Abdomen/GI: Active bowel sounds, soft/nondistended, nontender to palpation in all quadrants Extremities/MSK: No cyanosis or clubbing, extremities motor strength intact, moves all extremities Neurologic: No overt focal deficits, CN's II-XI not formally tested but appear grossly intact bilaterally Results & Data Results & Data Vital Signs (Past 12 Hours) Vital Signs Temp Pulse Pulse Resp BP BP Pulse Ox 01/25/25 07:29 36.4 C L 76 18 153/82 H 97 01/25/25 02:48 36.6 C 72 16 120/76 94 01/24/25 23:00 36.4 C L 72 16 112/61 94 01/24/25 21:44 61 O2 Del Method 01/25/25 07:29 Room Air 01/25/25 02:48 Room Air 01/24/25 23:00 Room Air 01/24/25 21:44
[2025-01-25] MEDS: HEPARIN SOD 5,000 UNIT/0.5 ML VIAL SQ SCH (13:18)
[2025-01-26 06:28] LABS: Hematocrit (blood only) 32.4 % (37.0-47.0); Hemoglobin 10.6 g/dl (12.0-16.0); Immature Granulocytes # (auto) 0.01 K/uL (0.01-0.20); Immature Granulocytes % (auto) 0.2 %; Mean Corpuscular Hemoglobin 29.5 pg (25.0-34.0); Mean Corpuscular Volume 90.3 fL (80.0-100.0); Platelet Count 194 K/uL (130-400); RDW Standard Deviation 46.4 fL (36.4-46.3); Red Blood Count 3.59 M/uL (4.20-5.40); White Blood Count 4.80 K/ul (4.8-10.8)
[2025-01-26 06:53] LABS: Anion Gap 8.0 (3-11); Blood Urea Nitrogen 23.0 mg/dl (6-23); Calcium 8.5 mg/dl (8.6-10.3); Carbon Dioxide 26.0 mmol/L (21-32); Chloride 107.0 mmol/L (98-107); Creatinine Clr Calc Pharmacy 34.1 ml/min; Glucose 93.0 mg/dl (70-99(Fasting)); Potassium 3.7 mmol/L (3.5-5.1); Sodium 141.0 mmol/L (136-145)
[2025-01-26 08:09] VITALS: BP 163/83; PULSE 79; RESP 18; TEMP 97.3; O2SAT 98
--- NOTE | 2025-01-26 12:23 | Discharge Summary ---
Date of Service January 26, 2025 Admission HPI Per Admitting Provider Patient is an 89-year-old female with past medical history significant for HLD, venous insufficiency, HTN, varicose veins of both lower extremities, age-related osteoporosis, essential tremor, SNHL of both ears, history of unprovoked bilateral pulmonary emboli chronically anticoagulated on Coumadin and other problems as outlined in her chart who presented to the ED with complaints of rectal bleeding and generalized weakness. History obtained from the patient, patient's daughter at bedside, discussion with ED provider and associated chart review. Has reportedly been experiencing intermittent bouts of trace rectal bleeding for the past several months. However, this morning, her she noticed her briefs were soaked in bright red blood. Upon further evaluation in her bathroom, she noticed some oozing of bright red blood from her rectum which has not happened before. When she had episodes of rectal bleeding previously, it was only a few spots here and there in her briefs. On Coumadin for history of bilateral PE. Last dose of Coumadin was yesterday afternoon, 01/21/25 - dose of 5mg. INR 2.6 on 12/22/24. Denies any abdominal pain or N/V. Reports appetite has been good. Also admits to feeling weaker over the past few days. No lightheadedness or dizziness upon standing. No recent falls or injuries. Lives with her daughter, Cary. No prior colonscopy per [facility] records. Patient denies ever having a c olonscopy before. Patient does not recall any history of internal and/or external hemorrhoids. No smoking history. Rare alcohol use. Admission Exam Per Admitting Provider General: WD/WN, NAD, sitting up in bed, A&Ox3, very pleasant, daughter at bedside HEENT: Normocephalic, atraumatic, moist mucous membranes Respiratory: Normal respiratory effort, CTAB Cardiovascular: RRR, no BLE edema (BLE compression stockings in place) Abdomen/GI: Active bowel sounds, soft/nondistended, nontender to palpation in all quadrants Extremities/MSK: No cyanosis or clubbing, extremities motor strength intact, moves all extremities Neurologic: No overt focal deficits, CN's II-XI not formally tested but appear grossly intact bilaterally Principal Diagnosis Rectal bleeding Rectal Mass #Acute blood loss anemia Discharge Exam General: WD/WN, NAD, sitting up in bed, A&Ox3, very pleasant, daughter at bedside HEENT: Normocephalic, atraumatic, moist mucous membranes Respiratory: Normal respiratory effort, CTAB Cardiovascular: RRR, no BLE edema (BLE compression stockings in place) Abdomen/GI: Active bowel sounds, soft/nondistended, nontender to palpation in all quadrants Extremities/MSK: No cyanosis or clubbing, extremities motor strength intact, moves all extremities Neurologic: No overt focal deficits, CN's II-XI not formally tested but appear grossly intact bilaterally Discharge Data Allergies Allergy/AdvReac Type Severity Reaction Status Date / Time No Known Allergies Allergy Verified 11/21/21 18:48 Consultations 01/22/25 11:32 ED Decision to Admit Stat 01/22/25 12:46 Consult Gastroenterology Routine 01/23/25 13:45 Consult Oncology Routine Procedures Performed Operation Date: 01/23/25 16:55 Actual Procedures p Colonoscopy Biopsy Cytology - Dario Suarez MD Ordered Studies 01/24/25 07:59 CT Abd and Pelvis [CT abd pelvis IV con only] Routine CT chest diagnostic wo con Routine Hospital Course (1) Rectal bleeding: (2) Acute blood loss anemia: (3) Supratherapeutic INR: (4) Generalized weakness: (5) History of pulmonary embolism: (6) Chronic anticoagulation: Plan Patient is an 89-year-old female with past medical history significant for HLD, venous insufficiency, HTN, varicose veins of both lower extremities, age-related osteoporosis, essential tremor, SNHL of both ears, history of unprovoked bilateral pulmonary emboli chronically anticoagulated on Coumadin and other problems as outlined in her chart who presented to the ED with complaints of rectal bleeding and generalized weakness. Rectal bleeding Rectal Mass #Acute blood loss anemia #Supratherapeutic INR Patient presented with bright red blood per rectum Underwent colonoscopy on 01/23found to have an ulcerated nonobstructing ring medium-sized mass in the mid rectum; oozing present. Biopsies taken. CT chest, abdomen and pelvis done to evaluate for metastatic disease; no definitive sign of metastatic disease. Hematology and oncology was consulted for presumptive diagnosis of rectal cancer. Recommended outpatient follow-up with referral to radiation oncology. Discussed with family regarding anticoagulation long-term; given that the patient's PE was 3 years ago and patient has oozing rectal mass; patient to be placed on prophylactic dose of Eliquis 2.5 mg. If patient continues to have bleeding while on Eliquis 2.5 mg; further discussion will be needed whether to continue with the blood thinner or not based on benefits/risks. Patient was started on heparin subcu as DVT prophylaxis with no significant bleeding. Biopsy results still pending at the time of the discharge. Please note the above document was generated using voice recognition software. It may contain grammatical, syntax or spelling errors. Any formal questions or concerns about the content, text or information contained within the body of this dictation should be directly addressed to the provider for clarification Total Time Total Time Spent Total Time Spent (In Minutes): 45 Total Time Includes: Examination of the Patient, Discharge Planning, Medication Reconciliation, Communication With Other Providers and Other Discharge Plan Discharge Items Patient Disposition: Home - Self-Care Reason For Visit: RECTAL BLEED, ABLA Discharge Diagnosis: Bright red blood per rectum Rectal mass Condition on Discharge: Fair Activity: Resume your previous activity Non-emergency contact: Primary Care Provider Call non-emergency contact if: you have any medication questions and your symptoms worsen Follow-up/Referrals: Glenn Keith MD [Primary Care Provider] - (Date & Time 01/29/2025 11:20 AM Provider: Glenn Keith MD [facility]) Juliann Arvizu DNP [Nurse Practitioner] - 02/02/25 12:30 pm Tayla Alicia MD [Physician] - 02/10/25 12:40 pm () Diet: Regular Addtl Attending Provider Instructions: You were admitted to the hospital with bright red blood per rectum. You underwent evaluation with colonoscopy by GI on 01/23; were found to have rectal mass which is biopsied. The result of the biopsy is pending. You underwent hematology/oncology evaluation; the CT chest, abdomen and pelvis did not show evidence of metastatic disease. Please follow-up with [facility]; they will call you with an appointment. You were scheduled to follow-up with your primary care doctor and palliative care provider. Due to the rectal bleeding; Coumadin has been stopped and you have been pr escribed low-dose of blood thinner with Eliquis 2.5 mg twice a day. If you continue to notice bleeding while you are on Coumadin; please discuss with the oncology doctor and your primary care doctor about discontinuing it. Pending Studies at Discharge: Yes (pathology report) Stand-Alone Forms: [facility], Smoking Cessation Medications and DC Order Prescriptions: New Eliquis 2.5 mg tablet 2.5 mg PO BID Qty: 60 0RF Continued metoprolol succinate 50 mg tablet extended release 24 hr 50 mg PO QAM alendronate 70 mg tablet 70 mg PO WK Rx Instructions: TAKES Sunday. allopurinol 100 mg tablet 100 mg PO QAM lisinopril 30 mg tablet 30 mg PO QAM hydrochlorothiazide 25 mg tablet 25 mg PO QAM gabapentin 100 mg capsule 100 mg PO TIDM calcium carbonate-vitamin D3 [Calcium 600 + D(3)] 600 mg-10 mcg (400 unit) Tablet 1 tab PO QAM Patient Comments: 01/22- otc unable to verify Discontinued warfarin 5 mg tablet 2.5 - 5 mg PO DAILY Rx Instructions: 2.5 mg every Fri; 5 mg all other days Discharge Orders: Discharge Order (Routine); Ordered 01/26/25 Ordered By: Deandre Barboza Admission Data Admit Date/Time: 01/22/25 11:35 Attending Provider: Deandre Barboza Admit Provider: Ángel Lara Primary Care Provider: Glenn Keith Other Providers: Dario Suarez; Ángel Lara; Jimena Ryder; Altagracia Angulo; Anirudh Strange; Janelle Fuller; Percy Schroeder; Josue Posada; Tayla Alicia; Jonh,No Attending Other Interventions: Discharge Summary Assessment (RN) Last Done: 01/26/25 11:00
== END 2025-01-26 11:32 | disposition home or self-care (01) | DRG 375 ==
LOC: ED 08:55 → SUATTDRO 11:35 → 2S 11:35 → 2W 01-23 14:34